=== PATIENT | female | born 1940 | race Hispanic/Latino ===

== ENCOUNTER → 2017-12-27 | Outpatient (CLI) | payer MEDICARE | LOC: MAMMO 09:23 | PROVIDERS: ATTEND Internal Medicine | DX: Z12.31 Encounter for screening mammogram for malignant neoplasm of breast (principal) | CPT/HCPCS: 77067 ==

== ENCOUNTER → 2018-07-09 | Outpatient (CLI) | payer MEDICARE ==
--- NOTE | 2018-07-09 14:59 | Diagnostic Imaging Report ---
FLUOROSCOPIC BARIUM SWALLOW HISTORY: Dysphagia [employer]: Bev Mark MD Comparison: None. Procedure: Double contrast barium swallow was performed using thick and thin oral barium and effervescent crystals. Radiation Exposure: Fluoroscopy Time: 1.5 minute Radiation dose: 19.5 mGy DISCUSSION: ESOPHAGUS: Motility: Primarily primary and secondary contractions. Scattered tertiary contractions. Mucosa: Unremarkable. Distensibility: Normal. GASTROESOPHAGEAL JUNCTION: Small hiatal hernia. GASTROESOPHAGEAL REFLUX: Severe spontaneous gastroesophageal reflux. STOMACH: Normally distensible and demonstrates normal contours and mucosal pattern. DUODENUM/PROXIMAL SMALL BOWEL: Unremarkable. IMPRESSION: Severe spontaneous gastroesophageal reflux. Small hiatal hernia. Signed by: Dr. Bev Mark MD on 07/09/2018 2:56 PM
== END ==
LOC: DX 09:49
PROVIDERS: ATTEND Internal Medicine
DX: R13.14 Dysphagia, pharyngoesophageal phase (principal)
CPT/HCPCS: 74220

== ENCOUNTER → 2019-01-26 | Outpatient (CLI) | payer MEDICARE ==
--- NOTE | 2019-01-26 15:21 | Diagnostic Imaging Report ---
Exam: CT chest Clinical history: Cough, nausea Technique: Helical images of the chest were obtained without contrast DOSE REDUCTION: The exams was performed according to the departmental dose-optimization program which includes automated exposure control, adjustment of the mA and/or kV according to patient size and/or use of iterative reconstruction technique. Findings: There is no evidence of pulmonary consolidation, nodule, edema, pleural effusion, interstitial disease, or pneumothorax. The tracheobronchial tree is clear. The cardiac size is within normal limits. The great vessels are normal in caliber and configuration. There is no evidence of mediastinal or hilar adenopathy. The visualized upper abdominal solid organs are unremarkable. Impression: 1. Unremarkable noncontrast CT of chest. Signed by: Dr. Arash Barnett MD on 01/26/2019 3:18 PM
--- NOTE | 2019-02-03 09:29 | Diagnostic Imaging Report ---
#[id number] - MGSCRBIL #BILATERAL DIGITAL SCREENING MAMMOGRAM WITH CAD: 01/26/2019 CLINICAL: Routine screening. Comparison is made to exams dated: 12/27/2017 mammogram and 11/05/2016 mammogram - [facility]. Current study contains 4 films. The tissue of both breasts is heterogeneously dense. This may lower the sensitivity of mammography. Current study was also evaluated with a Computer Aided Detection (CAD) system. Stable benign appearing calcifications are noted bilaterally. There are also benign vascular calcifications in both breasts. No significant masses, calcifications, or other findings are seen in either breast. IMPRESSION: BENIGN There is no mammographic evidence of malignancy. A 1 year screening mammogram is recommended. The patient will be notified by letter of the results. CHAYITO shaffer/penrad:01/30/2019 12:42:52 Rotary Drum Tanner: Veda JONES(Kaycee)(Darren), [facility] letter sent: Normal Exam Mammogram BI-RADS: 2 Benign
== END ==
LOC: MAMMO 13:33
PROVIDERS: ATTEND Internal Medicine
DX: Z12.31 Encounter for screening mammogram for malignant neoplasm of breast (principal); R05 Cough
CPT/HCPCS: 71250; 77067

== ENCOUNTER → 2019-07-29 | Outpatient (CLI) | payer MEDICARE ==
--- NOTE | 2019-07-29 13:16 | Diagnostic Imaging Report ---
Exam: Bone mineral density study. History: Osteoporosis Comparison: None Discussion: Evaluation of the left hip and lumbar spine was performed utilizing DEXA Hologic bone densitometer. The study is technically adequate. The patient's fracture risk is compared to an age-matched control. The patient denies prior surgery/fracture of the spine, hips or forearm. Left hip femoral neck bone mineral density: 0.728 g/cm2, T-score is -1.2, Z-score is 1.0. Left hip total bone mineral density: 0.777 g/cm2, T-score is -1.4, Z-score is 0.6. Lumbar spine total bone mineral density: 0.822 gm/cm2, T-score is -2.0, Z-score is 0.6. Impression: 1. Bone mineralization by WHO Classification of the left hip is osteopenia, the fracture risk is moderate. 2. Bone mineralization by WHO Classification of the lumbar spine is osteopenia, the fracture risk is moderate. Recommendations: Medical evaluation for secondary causes of low bone mineral density may be appropriate. Correlate clinically for the necessity and timing of the next bone mineral density study. Signed by: Dr. Yomi Calderon MD on 07/29/2019 1:13 PM
--- NOTE | 2019-07-29 14:03 | Diagnostic Imaging Report ---
MRI of the right shoulder without contrast. History: Shoulder pain. Injury. Decreased range of motion. Comparison: None Technique: Coronal PD FS, sagital PD FS, and axial PD and PD FS. Findings: Rotator cuff: Rotator cuff tendinosis with full-thickness tear involving the anterior fibers of the supraspinatus tendon at the humeral insertion site. Minimal retraction of the torn fibers and mild supraspinatus muscle atrophy. Additionally, there is subscapularis and infraspinatus tendinosis. The teres minor tendon is intact. Osseous acromion complex: Type II acromion with mild lateral downsloping. Mild degenerative arthrosis at the acromioclavicular joint with undersurface spurring and narrowing of the supraspinatus tendon outlet. Mild subacromial/subdeltoid bursitis. Glenohumeral joint: Degenerative type tearing of the labrum with small posterior superior labral cyst. The articular cartilage surfaces are slightly thin. The humeral head is well-seated in the glenoid fossa. Small effusion and mild synovitis in the rotator interval and subcoracoid space. Biceps tendon: The long head of the biceps tendon is torn and retracted proximally along the shaft of the humerus. Other findings: Negative for muscle denervation or osseous fracture. Impression: Rotator cuff tendinosis with full-thickness tear involving the anterior fibers of the supraspinatus tendon at the humeral insertion site. Minimal retraction of the torn fibers and mild supraspinatus muscle atrophy. The long head of the biceps tendon is torn and retracted proximally along the shaft of the humerus. Mild degenerative arthrosis at the acromioclavicular joint with undersurface spurring and narrowing of the supraspinatus tendon outlet. Mild subacromial/subdeltoid bursitis Signed by: Dr. Marko Leon M.D. on 07/29/2019 2:00 PM
== END ==
LOC: MRI 10:24
PROVIDERS: ATTEND Internal Medicine
DX: S46.001S Unspecified injury of muscle(s) and tendon(s) of the rotator cuff of right shoulder, sequela (principal); M81.0 Age-related osteoporosis without current pathological fracture
CPT/HCPCS: 77080

== ENCOUNTER 2019-10-29 12:50 | Emergency (ER) | payer MEDICARE ==
[~2019-10-29] VITALS: Ht 149.9 cm; Wt 48.5 kg
--- OUTSIDE RECORDS SUMMARY | 2019-10-29 12:54 | XMS REPORT ---
Author Author [facility] t Organization [facility] Address [address] [place] [id number] Phone Unavailable Care Team Providers Care Clinical Trials Assistant Name Role Phone CARABALLO, Darren GENAO Attphys Unavailable Payers Payer Name Policy Type Policy Number Effective Date Expiration Date S ource Problems This patient has no known problems. Allergies, Adverse Reactions, Alerts Allergy Name Allergy Type Status Severity Reaction(s) Onset Date Inacti ve Date Treating Clinician Comments Source No Known Allergies DA Active U 2019-08-13 00:00:00 [facility] No Known Allergies DA Active U 2015-03-08 00:00:00 [facility] Medications This patient has no known medications. Procedures This patient has no known procedures. Results Test Description Test Time Test Comments Results Result Comments Source GLUBED 2019-09-05 13:05:00 Test Item GLUBED (test code = GLUBED) 275 mg/dL 74-106 H Performed by certified glove machine operator at [facility] [id number] 09:00:00* Test Item Value Reference Range Interpretation Comments GLUBED (test code = GLUBED) 109 mg/dL 74-106 H Performed by certified glove machine operator at [facility] [id number] 20:22:00* Test Item Value Reference Range Interpretation Comments GLUBED (test code = GLUBED) 318 mg/dL 74-106 H Performed by certified glove machine operator at [facility] [id number] 16:51:00* Test Item Value Reference Range Interpretation Comments GLUBED (test code = GLUBED) 129 mg/dL 74-106 H Performed by certified glove machine operator at [facility] [id number] 12:13:00* Test Item Value Reference Range Interpretation Comments GLUBED (test code = GLUBED) 258 mg/dL 74-106 H Performed by certified glove machine operator at [facility] [id number] 12:13:00* Test Item Value Reference Range Interpretation Comments GLUBED (test code = GLUBED) 96 mg/dL 74-106 N Performed by certified glove machine operator at [facility] [id number] 20:37:00* Test Item Value Reference Range Interpretation Comments GLUBED (test code = GLUBED) 164 mg/dL 74-106 H Performed by certified glove machine operator at [facility] [id number] 15:54:00* Test Item Value Reference Range Interpretation Comments GLUBED (test code = GLUBED) 260 mg/dL 74-106 H Performed by certified glove machine operator at [facility] [id number] 11:17:00* Test Item Value Reference Range Interpretation Comments GLUBED (test code = GLUBED) 183 mg/dL 74-106 H Performed by certified glove machine operator at [facility] [id number] 07:56:00* Test Item Value Reference Range Interpretation Comments GLUBED (test code = GLUBED) 183 mg/dL 74-106 H Performed by certified glove machine operator at [facility] BASIC METABOLIC [id number] 04:36:00* Test Item Value Reference Range Interpretation Comments SODIUM (test code = NA) 132 mmol/L 136-145 L POTASSIUM (test code = K) 4.1 mmol/L 3.5-5.1 N CHLORIDE (test code = CL) 100.0 mmol/L 98-107 N CARBON DIOXIDE (test code = CO2) 22.0 mmol/L 21-32 N ANION GAP (test code = GAP) 14.1 10-20 N GLUCOSE (test code = GLU) 162 mg/dL 74-106 H BLOOD UREA NITROGEN (test code = BUN) 21 mg/dL 7-18 H GLOMERULAR FILTRATION RATE (test code = GFR) > 60 mL/min >=60 Estimated GFR by using Modified MDRD formula.Chronic kidney disease is defined as either kidney damageor GFR <60 mL/min/1.73 m2 for >3 months. CREATININE (test code = CREAT) 0.60 mg/dL 0.55-1.02 N Note change in reference range due to change in reagent. BUN/CREATININE RATIO (test code = BUN/CREA) 35.0 10-20 H CALCIUM (test code = CA) 8.7 mg/dL 8.5-10.1 N BASIC METABOLIC [id number] 04:30:00* Test Item Value Reference Range Interpretation Comments SODIUM (test code = NA) 132 mmol/L 136-145 L POTASSIUM (test code = K) 4.1 mmol/L 3.5-5.1 N CHLORIDE (test code = CL) 100.0 mmol/L 98-107 N CARBON DIOXIDE (test code = CO2) mmol/L 21-32 ANION GAP (test code = GAP) 10-20 GLUCOSE (test code = GLU) mg/dL 74-106 BLOOD UREA NITROGEN (test code = BUN) mg/dL 7-18 GLOMERULAR FILTRATION RATE (test code = GFR) mL/min >=60 CREATININE (test code = CREAT) mg/dL 0.55-1.02 BUN/CREATININE RATIO (test code = BUN/CREA) 10-20 CALCIUM (test code = CA) mg/dL 8.5-10.1 [id number] 20:08:00* Test Item Value Reference Range Interpretation Comments GLUBED (test code = GLUBED) 183 mg/dL 74-106 H Performed by certified glove machine operator at [facility] [id number] 17:22:00* Test Item Value Reference Range Interpretation Comments GLUBED (test code = GLUBED) 261 mg/dL 74-106 H Performed by certified glove machine operator at [facility] [id number] 11:39:00* Test Item Value Reference Range Interpretation Comments GLUBED (test code = GLUBED) 284 mg/dL 74-106 H Performed by certified glove machine operator at [facility] [id number] 07:43:00* Test Item Value Reference Range Interpretation Comments GLUBED (test code = GLUBED) 142 mg/dL 74-106 H Performed by certified glove machine operator at [facility] BASIC METABOLIC [id number] 05:03:00* Test Item Value Reference Range Interpretation Comments SODIUM (test code = NA) 133 mmol/L 136-145 L POTASSIUM (test code = K) 3.8 mmol/L 3.5-5.1 N CHLORIDE (test code = CL) 101.0 mmol/L 98-107 N CARBON DIOXIDE (test code = CO2) mmol/L 21-32 ANION GAP (test code = GAP) 10-20 GLUCOSE (test code = GLU) mg/dL 74-106 BLOOD UREA NITROGEN (test code = BUN) mg/dL 7-18 GLOMERULAR FILTRATION RATE (test code = GFR) mL/min >=60 CREATININE (test code = CREAT) mg/dL 0.55-1.02 BUN/CREATININE RATIO (test code = BUN/CREA) 10-20 CALCIUM (test code = CA) mg/dL 8.5-10.1 [id number] 05:03:00* Test Item Value Reference Range Interpretation Comments MAGNESIUM (test code = MAG) mg/dL 1.8-2.4 BASIC METABOLIC [id number] 05:03:00* Test Item Value Reference Range Interpretation Comments SODIUM (test code = NA) 133 mmol/L 136-145 L POTASSIUM (test code = K) 3.8 mmol/L 3.5-5.1 N CHLORIDE (test code = CL) 101.0 mmol/L 98-107 N CARBON DIOXIDE (test code = CO2) 23.0 mmol/L 21-32 N ANION GAP (test code = GAP) 12.8 10-20 N GLUCOSE (test code = GLU) 117 mg/dL 74-106 H BLOOD UREA NITROGEN (test code = BUN) 11 mg/dL 7-18 N GLOMERULAR FILTRATION RATE (test code = GFR) > 60 mL/min >=60 Estimated GFR by using Modified MDRD formula.Chronic kidney disease is defined as either kidney damageor GFR <60 mL/min/1.73 m2 for >3 months. CREATININE (test code = CREAT) 0.40 mg/dL 0.55-1.02 L Note change in reference range due to change in reagent. BUN/CREATININE RATIO (test code = BUN/CREA) 27.5 10-20 H CALCIUM (test code = CA) 8.9 mg/dL 8.5-10.1 N [id number] 05:03:00* Test Item Value Reference Range Interpretation Comments MAGNESIUM (test code = MAG) 2.1 mg/dL 1.8-2.4 N CBC W/AUTO [id number] 04:38:00* Test Item Value Reference Range Interpretation Comments WHITE BLOOD CELL (test code = WBC) 6.3 K/mm3 4.5-12.5 N RED BLOOD CELL (test code = RBC) 3.71 mill/mm3 3.7-5.2 N HEMOGLOBIN (test code = HGB) 10.8 gram/dL 11.5-15.5 L HEMATOCRIT (test code = HCT) 32.1 % 36.0-46.0 L MEAN CELL VOLUME (test code = MCV) 86.5 fL 80-98 N MEAN CELL HGB (test code = MCH) 29.1 picogram 27.0-33.0 N MEAN CELL HGB CONCETRATION (test code = MCHC) 33.6 gram/dL 33.0-36. 0 N RED CELL DISTRIBUTION WIDTH (test code = RDW) 13.5 % 11.6-16. 2 N RED CELL DISTRIBUTION WIDTH SD (test code = RDW-SD) 41.6 fL 37 .0-51.0 N PLATELET COUNT (test code = PLT) 406 K/mm3 150-450 N MEAN PLATELET VOLUME (test code = MPV) 8.8 fL 6.7-11.0 N NEUTROPHIL % (test code = NT%) 77.4 % 39.0-69.0 H IMMATURE GRANULOCYTE % (test code = IG%) 1.3 % 0.0-5.0 N LYMPHOCYTE % (test code = LY%) 11.8 % 25.0-55.0 L MONOCYTE % (test code = MO%) 5.9 % 0.0-10.0 N EOSINOPHIL % (test code = EO%) 3.0 % 0.0-5.0 N BASOPHIL % (test code = BA%) 0.6 % 0.0-1.0 N NUCLEATED RBC % (test code = NRBC%) 0.0 % 0-0 N NEUTROPHIL # (test code = NT#) 4.84 K/mm3 1.8-7.7 N IMMATURE GRANULOCYTE # (test code = IG#) 0.08 x10 3/uL 0-0.03 H LYMPHOCYTE # (test code = LY#) 0.74 K/mm3 1.0-5.0 L MONOCYTE # (test code = MO#) 0.37 K/mm3 0-0.8 N EOSINOPHIL # (test code = EO#) 0.19 K/mm3 0.0-0.5 N BASOPHIL # (test code = BA#) 0.04 K/mm3 0.0-0.2 N NUCLEATED RBC # (test code = NRBC#) 0.00 K/mm3 0.0-0.1 N [id number] 20:12:00* Test Item Value Reference Range Interpretation Comments GLUBED (test code = GLUBED) 218 mg/dL 74-106 H Performed by certified glove machine operator at [facility] [id number] 18:00:00* Test Item Value Reference Range Interpretation Comments GLUBED (test code = GLUBED) 260 mg/dL 74-106 H Performed by certified glove machine operator at [facility] [id number] 18:00:00* Test Item Value Reference Range Interpretation Comments GLUBED (test code = GLUBED) 246 mg/dL 74-106 H Performed by certified glove machine operator at [facility] [id number] 11:51:00* Test Item Value Reference Range Interpretation Comments GLUBED (test code = GLUBED) 143 mg/dL 74-106 H Performed by certified glove machine operator at [facility] [id number] 07:57:00* Test Item Value Reference Range Interpretation Comments GLUBED (test code = GLUBED) 143 mg/dL 74-106 H Performed by certified glove machine operator at [facility] BASIC METABOLIC [id number] 05:49:00* Test Item Value Reference Range Interpretation Comments SODIUM (test code = NA) 136 mmol/L 136-145 N POTASSIUM (test code = K) 3.9 mmol/L 3.5-5.1 N CHLORIDE (test code = CL) 103.0 mmol/L 98-107 N CARBON DIOXIDE (test code = CO2) 25.0 mmol/L 21-32 N ANION GAP (test code = GAP) 11.9 10-20 N GLUCOSE (test code = GLU) 155 mg/dL 74-106 H BLOOD UREA NITROGEN (test code = BUN) 8 mg/dL 7-18 N GLOMERULAR FILTRATION RATE (test code = GFR) > 60 mL/min >=60 Estimated GFR by using Modified MDRD formula.Chronic kidney disease is defined as either kidney damageor GFR <60 mL/min/1.73 m2 for >3 months. CREATININE (test code = CREAT) 0.40 mg/dL 0.55-1.02 L Note change in reference range due to change in reagent. BUN/CREATININE RATIO (test code = BUN/CREA) 20.0 10-20 N CALCIUM (test code = CA) 9.0 mg/dL 8.5-10.1 N BASIC METABOLIC [id number] 05:39:00* Test Item Value Reference Range Interpretation Comments SODIUM (test code = NA) 136 mmol/L 136-145 N POTASSIUM (test code = K) 3.9 mmol/L 3.5-5.1 N CHLORIDE (test code = CL) 103.0 mmol/L 98-107 N CARBON DIOXIDE (test code = CO2) mmol/L 21-32 ANION GAP (test code = GAP) 10-20 GLUCOSE (test code = GLU) mg/dL 74-106 BLOOD UREA NITROGEN (test code = BUN) mg/dL 7-18 GLOMERULAR FILTRATION RATE (test code = GFR) mL/min >=60 CREATININE (test code = CREAT) mg/dL 0.55-1.02 BUN/CREATININE RATIO (test code = BUN/CREA) 10-20 CALCIUM (test code = CA) mg/dL 8.5-10.1 CBC W/AUTO [id number] 05:24:00* Test Item Value Reference Range Interpretation Comments WHITE BLOOD CELL (test code = WBC) 5.9 K/mm3 4.5-12.5 N RED BLOOD CELL (test code = RBC) 3.72 mill/mm3 3.7-5.2 N HEMOGLOBIN (test code = HGB) 11.0 gram/dL 11.5-15.5 L HEMATOCRIT (test code = HCT) 32.8 % 36.0-46.0 L MEAN CELL VOLUME (test code = MCV) 88.2 fL 80-98 N MEAN CELL HGB (test code = MCH) 29.6 picogram 27.0-33.0 N MEAN CELL HGB CONCETRATION (test code = MCHC) 33.5 gram/dL 33.0-36. 0 N RED CELL DISTRIBUTION WIDTH (test code = RDW) 13.6 % 11.6-16. 2 N RED CELL DISTRIBUTION WIDTH SD (test code = RDW-SD) 43.3 fL 37 .0-51.0 N PLATELET COUNT (test code = PLT) 413 K/mm3 150-450 N MEAN PLATELET VOLUME (test code = MPV) 9.0 fL 6.7-11.0 N NEUTROPHIL % (test code = NT%) 71.2 % 39.0-69.0 H IMMATURE GRANULOCYTE % (test code = IG%) 1.0 % 0.0-5.0 N LYMPHOCYTE % (test code = LY%) 16.7 % 25.0-55.0 L MONOCYTE % (test code = MO%) 6.9 % 0.0-10.0 N EOSINOPHIL % (test code = EO%) 3.5 % 0.0-5.0 N BASOPHIL % (test code = BA%) 0.7 % 0.0-1.0 N NUCLEATED RBC % (test code = NRBC%) 0.0 % 0-0 N NEUTROPHIL # (test code = NT#) 4.22 K/mm3 1.8-7.7 N IMMATURE GRANULOCYTE # (test code = IG#) 0.06 x10 3/uL 0-0.03 H LYMPHOCYTE # (test code = LY#) 0.99 K/mm3 1.0-5.0 L MONOCYTE # (test code = MO#) 0.41 K/mm3 0-0.8 N EOSINOPHIL # (test code = EO#) 0.21 K/mm3 0.0-0.5 N BASOPHIL # (test code = BA#) 0.04 K/mm3 0.0-0.2 N NUCLEATED RBC # (test code = NRBC#) 0.00 K/mm3 0.0-0.1 N MANUAL DIFF REQUIRED (test code = MDIFF) NO [id number] 19:41:00* Test Item Value Reference Range Interpretation Comments GLUBED (test code = GLUBED) 221 mg/dL 74-106 H Performed by certified glove machine operator at [facility] [id number] 16:49:00* Test Item Value Reference Range Interpretation Comments GLUBED (test code = GLUBED) 212 mg/dL 74-106 H Performed by certified glove machine operator at [facility] - XR CHEST 1 [id number] 12:15:00 FAX: Linda Lindquist [place]: [address] St: ADM FAX: Chavez Nickerson MD [phone] Name: TARA RO [facility] : 1940 Age/S: 79/F [address] [facility] Unit #: [id number] Loc: [address] [place] [address] Phys: Chavez Mason MD Acct: [id number] Dis Date: Status: ADM IN PHONE #: [phone] Exam Date: 08/31/2019 1201 FAX #: [phone] Reason: f/u pneumonia EXAMS: CPT CODE: [id number] XR CHEST 1 V 11421 HISTORY: Follow-up pneumonia. COMPARISON: Chest x-ray from August 23, 2019. Location: [facility]. Complete resolution of the right upper lobe infiltrate. Dependent changes. No effusion or congestion. Cardiomegaly. IMPRESSION: Complete resolution of the right upper lobe infiltrate. at 121 Reported and signed by: Anand Cazares M.D. CC: Linda Lindquist MD; Chavez Mason MD Technologist: Jenny Rao(Kaycee) Trnscrd Date/Time/By: 08/31/2019 (0770) : By: [email or web address] Orig Print D/T: S: 08/31/2019 (5664) PAGE 1 Signed Report - XR CHEST 1 V 2019-08-31 12:15:00 FAX: Linda Lindquist [place]: [address] St: ADM FAX: Chavez Nickerson MD [phone] Name: TARA RO [facility] : 1940 Age/S: 79/F [address] Unit #: [id number] Loc: V.[address] [place] [address] Phys: Chavez Mason MD Acct: [id number] Dis Date: Status: ADM IN PHONE #: [phone] Exam Date: 08/31/2019 1201 FAX #: [phone] Reason: f/u pneumonia EXAMS: CPT CODE: [id number] XR CHEST 1 V 21916 HISTORY: Follow-up pneumonia. COMPARISON: Chest x-ray from August 23, 2019. Location: [facility]. Complete resolution of the right upper lobe infiltrate. Dependent changes. No effusion or congestion. Cardiomegaly. IMPRESSION: Complete resolution of the right upper lobe infiltrate. at 1215 Reported and signed by: Anand Cazares M.D. CC: Linda Lindquist MD; Chavez Mason MD Technologist: Jenny Rao(Kaycee) Trnscrd Date/Time/By: 08/31/2019 (7935) : By: [email or web address] Orig Print D/T: S: 08/31/2019 (8903) PAGE 1 Signed Report [id number] 11:34:00* Test Item Value Reference Range Interpretation Comments GLUBED (test code = GLUBED) 248 mg/dL 74-106 H Performed by certified glove machine operator at [facility] [id number] 07:24:00* Test Item Value Reference Range Interpretation Comments GLUBED (test code = GLUBED) 226 mg/dL 74-106 H Performed by certified glove machine operator at [facility] BASIC METABOLIC [id number] 04:30:00* Test Item Value Reference Range Interpretation Comments SODIUM (test code = NA) 135 mmol/L 136-145 L POTASSIUM (test code = K) 3.9 mmol/L 3.5-5.1 N CHLORIDE (test code = CL) 104.0 mmol/L 98-107 N CARBON DIOXIDE (test code = CO2) 23.0 mmol/L 21-32 N ANION GAP (test code = GAP) 11.9 10-20 N GLUCOSE (test code = GLU) 261 mg/dL 74-106 H BLOOD UREA NITROGEN (test code = BUN) 9 mg/dL 7-18 N GLOMERULAR FILTRATION RATE (test code = GFR) > 60 mL/min >=60 Estimated GFR by using Modified MDRD formula.Chronic kidney disease is defined as either kidney damageor GFR <60 mL/min/1.73 m2 for >3 months. CREATININE (test code = CREAT) 0.60 mg/dL 0.55-1.02 N Note change in reference range due to change in reagent. BUN/CREATININE RATIO (test code = BUN/CREA) 15.0 10-20 N CALCIUM (test code = CA) 8.4 mg/dL 8.5-10.1 L BASIC METABOLIC [id number] 04:25:00* Test Item Value Reference Range Interpretation Comments SODIUM (test code = NA) 135 mmol/L 136-145 L POTASSIUM (test code = K) 3.9 mmol/L 3.5-5.1 N CHLORIDE (test code = CL) 104.0 mmol/L 98-107 N CARBON DIOXIDE (test code = CO2) mmol/L 21-32 ANION GAP (test code = GAP) 10-20 GLUCOSE (test code = GLU) mg/dL 74-106 BLOOD UREA NITROGEN (test code = BUN) mg/dL 7-18 GLOMERULAR FILTRATION RATE (test code = GFR) mL/min >=60 CREATININE (test code = CREAT) mg/dL 0.55-1.02 BUN/CREATININE RATIO (test code = BUN/CREA) 10-20 CALCIUM (test code = CA) mg/dL 8.5-10.1 CBC W/AUTO [id number] 04:22:00* Test Item Value Reference Range Interpretation Comments WHITE BLOOD CELL (test code = WBC) 8.5 K/mm3 4.5-12.5 N RED BLOOD CELL (test code = RBC) 3.39 mill/mm3 3.7-5.2 L HEMOGLOBIN (test code = HGB) 10.0 gram/dL 11.5-15.5 L HEMATOCRIT (test code = HCT) 29.8 % 36.0-46.0 L MEAN CELL VOLUME (test code = MCV) 87.9 fL 80-98 N MEAN CELL HGB (test code = MCH) 29.5 picogram 27.0-33.0 N MEAN CELL HGB CONCETRATION (test code = MCHC) 33.6 gram/dL 33.0-36. 0 N RED CELL DISTRIBUTION WIDTH (test code = RDW) 13.6 % 11.6-16. 2 N RED CELL DISTRIBUTION WIDTH SD (test code = RDW-SD) 42.8 fL 37 .0-51.0 N PLATELET COUNT (test code = PLT) 370 K/mm3 150-450 N MEAN PLATELET VOLUME (test code = MPV) 9.2 fL 6.7-11.0 N NEUTROPHIL % (test code = NT%) 83.0 % 39.0-69.0 H IMMATURE GRANULOCYTE % (test code = IG%) 0.8 % 0.0-5.0 N LYMPHOCYTE % (test code = LY%) 8.3 % 25.0-55.0 L MONOCYTE % (test code = MO%) 6.2 % 0.0-10.0 N EOSINOPHIL % (test code = EO%) 1.5 % 0.0-5.0 N BASOPHIL % (test code = BA%) 0.2 % 0.0-1.0 N NUCLEATED RBC % (test code = NRBC%) 0.0 % 0-0 N NEUTROPHIL # (test code = NT#) 7.08 K/mm3 1.8-7.7 N IMMATURE GRANULOCYTE # (test code = IG#) 0.07 x10 3/uL 0-0.03 H LYMPHOCYTE # (test code = LY#) 0.71 K/mm3 1.0-5.0 L MONOCYTE # (test code = MO#) 0.53 K/mm3 0-0.8 N EOSINOPHIL # (test code = EO#) 0.13 K/mm3 0.0-0.5 N BASOPHIL # (test code = BA#) 0.02 K/mm3 0.0-0.2 N NUCLEATED RBC # (test code = NRBC#) 0.00 K/mm3 0.0-0.1 N [id number] 20:15:00* Test Item Value Reference Range Interpretation Comments GLUBED (test code = GLUBED) 122 mg/dL 74-106 H Performed by certified glove machine operator at [facility] [id number] 18:16:00* Test Item Value Reference Range Interpretation Comments GLUBED (test code = GLUBED) 268 mg/dL 74-106 H Performed by certified glove machine operator at [facility] [id number] 12:11:00* Test Item Value Reference Range Interpretation Comments GLUBED (test code = GLUBED) 279 mg/dL 74-106 H Performed by certified glove machine operator at [facility] [id number] 08:32:00* Test Item Value Reference Range Interpretation Comments GLUBED (test code = GLUBED) 141 mg/dL 74-106 H Performed by certified glove machine operator at [facility] BASIC METABOLIC [id number] 04:44:00* Test Item Value Reference Range Interpretation Comments SODIUM (test code = NA) 136 mmol/L 136-145 N POTASSIUM (test code = K) 4.3 mmol/L 3.5-5.1 N CHLORIDE (test code = CL) 104.0 mmol/L 98-107 N CARBON DIOXIDE (test code = CO2) 20.0 mmol/L 21-32 L ANION GAP (test code = GAP) 16.3 10-20 N GLUCOSE (test code = GLU) 118 mg/dL 74-106 H BLOOD UREA NITROGEN (test code = BUN) 8 mg/dL 7-18 N GLOMERULAR FILTRATION RATE (test code = GFR) > 60 mL/min >=60 Estimated GFR by using Modified MDRD formula.Chronic kidney disease is defined as either kidney damageor GFR <60 mL/min/1.73 m2 for >3 months. CREATININE (test code = CREAT) 0.40 mg/dL 0.55-1.02 L Note change in reference range due to change in reagent. BUN/CREATININE RATIO (test code = BUN/CREA) 20.0 10-20 N CALCIUM (test code = CA) 8.0 mg/dL 8.5-10.1 L BASIC METABOLIC [id number] 04:39:00* Test Item Value Reference Range Interpretation Comments SODIUM (test code = NA) 136 mmol/L 136-145 N POTASSIUM (test code = K) 4.3 mmol/L 3.5-5.1 N CHLORIDE (test code = CL) 104.0 mmol/L 98-107 N CARBON DIOXIDE (test code = CO2) mmol/L 21-32 ANION GAP (test code = GAP) 10-20 GLUCOSE (test code = GLU) mg/dL 74-106 BLOOD UREA NITROGEN (test code = BUN) mg/dL 7-18 GLOMERULAR FILTRATION RATE (test code = GFR) mL/min >=60 CREATININE (test code = CREAT) mg/dL 0.55-1.02 BUN/CREATININE RATIO (test code = BUN/CREA) 10-20 CALCIUM (test code = CA) mg/dL 8.5-10.1 CBC W/AUTO [id number] 03:58:00* Test Item Value Reference Range Interpretation Comments WHITE BLOOD CELL (test code = WBC) 10.3 K/mm3 4.5-12.5 N RED BLOOD CELL (test code = RBC) 3.11 mill/mm3 3.7-5.2 L HEMOGLOBIN (test code = HGB) 9.4 gram/dL 11.5-15.5 L HEMATOCRIT (test code = HCT) 29.1 % 36.0-46.0 L MEAN CELL VOLUME (test code = MCV) 93.6 fL 80-98 N MEAN CELL HGB (test code = MCH) 30.2 picogram 27.0-33.0 N MEAN CELL HGB CONCETRATION (test code = MCHC) 32.3 gram/dL 33.0-36. 0 L RED CELL DISTRIBUTION WIDTH (test code = RDW) 13.6 % 11.6-16. 2 N RED CELL DISTRIBUTION WIDTH SD (test code = RDW-SD) 45.3 fL 37 .0-51.0 N PLATELET COUNT (test code = PLT) 329 K/mm3 150-450 MEAN PLATELET VOLUME (test code = MPV) 9.0 fL 6.7-11.0 N NEUTROPHIL % (test code = NT%) 82.3 % 39.0-69.0 H IMMATURE GRANULOCYTE % (test code = IG%) 0.7 % 0.0-5.0 N LYMPHOCYTE % (test code = LY%) 8.4 % 25.0-55.0 L MONOCYTE % (test code = MO%) 6.7 % 0.0-10.0 N EOSINOPHIL % (test code = EO%) 1.5 % 0.0-5.0 N BASOPHIL % (test code = BA%) 0.4 % 0.0-1.0 N NUCLEATED RBC % (test code = NRBC%) 0.0 % 0-0 N NEUTROPHIL # (test code = NT#) 8.49 K/mm3 1.8-7.7 H IMMATURE GRANULOCYTE # (test code = IG#) 0.07 x10 3/uL 0-0.03 H LYMPHOCYTE # (test code = LY#) 0.87 K/mm3 1.0-5.0 L MONOCYTE # (test code = MO#) 0.69 K/mm3 0-0.8 N EOSINOPHIL # (test code = EO#) 0.15 K/mm3 0.0-0.5 N BASOPHIL # (test code = BA#) 0.04 K/mm3 0.0-0.2 N NUCLEATED RBC # (test code = NRBC#) 0.00 K/mm3 0.0-0.1 N MANUAL DIFF REQUIRED (test code = MDIFF) NO [id number] 20:13:00* Test Item Value Reference Range Interpretation Comments GLUBED (test code = GLUBED) 283 mg/dL 74-106 H Performed by certified glove machine operator at [facility] [id number] 16:47:00* Test Item Value Reference Range Interpretation Comments GLUBED (test code = GLUBED) 135 mg/dL 74-106 H Performed by certified glove machine operator at [facility] [id number] 12:33:00* Test Item Value Reference Range Interpretation Comments GLUBED (test code = GLUBED) 343 mg/dL 74-106 H [facility] [id number] 08:44:00* Test Item Value Reference Range Interpretation Comments GLUBED (test code = GLUBED) 98 mg/dL 74-106 N Performed by certified glove machine operator at [facility] BASIC METABOLIC [id number] 04:25:00* Test Item Value Reference Range Interpretation Comments SODIUM (test code = NA) 135 mmol/L 136-145 L POTASSIUM (test code = K) 4.2 mmol/L 3.5-5.1 N CHLORIDE (test code = CL) 102.0 mmol/L 98-107 N CARBON DIOXIDE (test code = CO2) 24.0 mmol/L 21-32 N ANION GAP (test code = GAP) 13.2 10-20 N GLUCOSE (test code = GLU) 85 mg/dL 74-106 N BLOOD UREA NITROGEN (test code = BUN) 7 mg/dL 7-18 N GLOMERULAR FILTRATION RATE (test code = GFR) > 60 mL/min >=60 Estimated GFR by using Modified MDRD formula.Chronic kidney disease is defined as either kidney damageor GFR <60 mL/min/1.73 m2 for >3 months. CREATININE (test code = CREAT) 0.40 mg/dL 0.55-1.02 L Note change in reference range due to change in reagent. BUN/CREATININE RATIO (test code = BUN/CREA) 17.5 10-20 N CALCIUM (test code = CA) 8.3 mg/dL 8.5-10.1 L BASIC METABOLIC [id number] 04:20:00* Test Item Value Reference Range Interpretation Comments SODIUM (test code = NA) 135 mmol/L 136-145 L POTASSIUM (test code = K) 4.2 mmol/L 3.5-5.1 N CHLORIDE (test code = CL) 102.0 mmol/L 98-107 N CARBON DIOXIDE (test code = CO2) mmol/L 21-32 ANION GAP (test code = GAP) 10-20 GLUCOSE (test code = GLU) mg/dL 74-106 BLOOD UREA NITROGEN (test code = BUN) mg/dL 7-18 GLOMERULAR FILTRATION RATE (test code = GFR) mL/min >=60 CREATININE (test code = CREAT) mg/dL 0.55-1.02 BUN/CREATININE RATIO (test code = BUN/CREA) 10-20 CALCIUM (test code = CA) mg/dL 8.5-10.1 CBC W/AUTO [id number] 04:01:00* Test Item Value Reference Range Interpretation Comments WHITE BLOOD CELL (test code = WBC) 12.9 K/mm3 4.5-12.5 H RED BLOOD CELL (test code = RBC) 3.52 mill/mm3 3.7-5.2 L HEMOGLOBIN (test code = HGB) 10.4 gram/dL 11.5-15.5 L HEMATOCRIT (test code = HCT) 31.3 % 36.0-46.0 L MEAN CELL VOLUME (test code = MCV) 88.9 fL 80-98 N MEAN CELL HGB (test code = MCH) 29.5 picogram 27.0-33.0 N MEAN CELL HGB CONCETRATION (test code = MCHC) 33.2 gram/dL 33.0-36. 0 N RED CELL DISTRIBUTION WIDTH (test code = RDW) 14.0 % 11.6-16. 2 N RED CELL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 [id number] 11:26:00* Test Item Value Reference Range Interpretation Comments SODIUM (test code = NA) 133 mmol/L 136-145 L POTASSIUM (test code = K) 3.9 mmol/L 3.5-5.1 N CHLORIDE (test code = CL) 96.0 mmol/L 98-107 L CARBON DIOXIDE (test code = CO2) mmol/L 21-32 ANION GAP (test code = GAP) 10-20 GLUCOSE (test code = GLU) mg/dL 74-106 BLOOD UREA NITROGEN (test code = BUN) mg/dL 7-18 GLOMERULAR FILTRATION RATE (test code = GFR) mL/min >=60 CREATININE (test code = CREAT) mg/dL 0.55-1.02 BUN/CREATININE RATIO (test code = BUN/CREA) 10-20 CALCIUM (test code = CA) mg/dL 8.5-10.1 CBC W/AUTO [id number] 11:00:00* Test Item Value Reference Range Interpretation Comments WHITE BLOOD CELL (test code = WBC) 17.5 K/mm3 4.5-12.5 H RED BLOOD CELL (test code = RBC) 3.40 mill/mm3 3.7-5.2 L HEMOGLOBIN (test code = HGB) 10.4 gram/dL 11.5-15.5 L HEMATOCRIT (test code = HCT) 29.6 % 36.0-46.0 L MEAN CELL VOLUME (test code = MCV) 87.1 fL 80-98 N MEAN CELL HGB (test code = MCH) 30.6 picogram 27.0-33.0 N MEAN CELL HGB CONCETRATION (test code = MCHC) 35.1 gram/dL 33.0-36. 0 N RED CELL DISTRIBUTION WIDTH (test code = RDW) 13.1 % 11.6-16. 2 N RED CELL DISTRIBUTION WIDTH SD (test code = RDW-SD) 39.1 fL 37 .0-51.0 N PLATELET COUNT (test code = PLT) 297 K/mm3 150-450 N MEAN PLATELET VOLUME (test code = MPV) 10.0 fL 6.7-11.0 N NEUTROPHIL % (test code = NT%) 86.1 % 39.0-69.0 H IMMATURE GRANULOCYTE % (test code = IG%) 3.7 % 0.0-5.0 N LYMPHOCYTE % (test code = LY%) 3.7 % 25.0-55.0 L MONOCYTE % (test code = MO%) 6.0 % 0.0-10.0 N EOSINOPHIL % (test code = EO%) 0.3 % 0.0-5.0 N BASOPHIL % (test code = BA%) 0.2 % 0.0-1.0 N NUCLEATED RBC % (test code = NRBC%) 0.0 % 0-0 N NEUTROPHIL # (test code = NT#) 15.10 K/mm3 1.8-7.7 H IMMATURE GRANULOCYTE # (test code = IG#) 0.65 x10 3/uL 0-0.03 H LYMPHOCYTE # (test code = LY#) 0.64 K/mm3 1.0-5.0 L MONOCYTE # (test code = MO#) 1.05 K/mm3 0-0.8 H EOSINOPHIL # (test code = EO#) 0.06 K/mm3 0.0-0.5 N BASOPHIL # (test code = BA#) 0.03 K/mm3 0.0-0.2 N NUCLEATED RBC # (test code = NRBC#) 0.00 K/mm3 0.0-0.1 N MANUAL DIFF REQUIRED (test code = MDIFF) NO [id number] 07:57:00* Test Item Value Reference Range Interpretation Comments GLUBED (test code = GLUBED) 163 mg/dL 74-106 H Performed by certified glove machine operator at [facility] [id number] 07:57:00* Test Item Value Reference Range Interpretation Comments GLUBED (test code = GLUBED) 176 mg/dL 74-106 H Performed by certified glove machine operator at [facility] [id number] 23:40:00* Test Item Value Reference Range Interpretation Comments GLUBED (test code = GLUBED) 181 mg/dL 74-106 H Performed by certified glove machine operator at [facility] [id number] 16:45:00* Test Item Value Reference Range Interpretation Comments GLUBED (test code = GLUBED) 279 mg/dL 74-106 H Performed by certified glove machine operator at [facility] CBC W/MANUAL [id number] 12:03:00* Test Item Value Reference Range Interpretation Comments WHITE BLOOD CELL (test code = WBC) 15.3 K/mm3 4.5-12.5 H RED BLOOD CELL (test code = RBC) 3.48 mill/mm3 3.7-5.2 L HEMOGLOBIN (test code = HGB) 10.4 gram/dL 11.5-15.5 L HEMATOCRIT (test code = HCT) 30.0 % 36.0-46.0 L MEAN CELL VOLUME (test code = MCV) 86.2 fL 80-98 N MEAN CELL HGB (test code = MCH) 29.9 picogram 27.0-33.0 N MEAN CELL HGB CONCETRATION (test code = MCHC) 34.7 gram/dL 33.0-36. 0 N RED CELL DISTRIBUTION WIDTH (test code = RDW) 12.6 % 11.6-16. 2 N RED CELL DISTRIBUTION WIDTH SD (test code = RDW-SD) 38.1 fL 37 .0-51.0 N PLATELET COUNT (test code = PLT) 271 K/mm3 150-450 N MEAN PLATELET VOLUME (test code = MPV) 10.3 fL 6.7-11.0 N IMMATURE GRANULOCYTE % (test code = IG%) 5.1 % 0.0-5.0 H "The appearance of immature granulocytes (myelocytes,pro-myelocytes, meta-myelocytes) in the peripheral blood ofnon- individuals can indicate a response toinfection, inflammation, or other stimulus to the bonemarrow" NUCLEATED RBC % (test code = NRBC%) 0.0 % 0-0 N NEUTROPHIL # (test code = NT#) 12.37 K/mm3 1.8-7.7 H IMMATURE GRANULOCYTE # (test code = IG#) 0.78 x10 3/uL 0-0.03 H LYMPHOCYTE # (test code = LY#) 0.79 K/mm3 1.0-5.0 L MONOCYTE # (test code = MO#) 1.29 K/mm3 0-0.8 H EOSINOPHIL # (test code = EO#) 0.03 K/mm3 0.0-0.5 N BASOPHIL # (test code = BA#) 0.05 K/mm3 0.0-0.2 N NUCLEATED RBC # (test code = NRBC#) 0.00 K/mm3 0.0-0.1 N MANUAL DIFF REQUIRED (test code = MDIFF) YES STAIN ACCEPTABILITY (test code = STN ACCEPTABLE) STAIN ACCEPTABLE TOTAL CELLS COUNTED (test code = TCC) 115 #CELLS SEGMENTED NEUTROPHILS (test code = SEG) 89.5 % 39-69 H BAND NEUTROPHIL (test code = BAND) 0 % 0-10 N LYMPHOCYTE (test code = LYMPH) 6.1 % 25-55 L REACTIVE LYMPH (test code = RELYMPH) 0.9 % MONOCYTE (test code = MON) 2.6 % 0-10 N EOSINOPHIL (test code = EOS) 0.9 % 0.0-5.0 N BASOPHIL (test code = BASO) 0 % 0-1.0 N METAMYELOCYTE (test code = META) 0 % 0-0 N MYELOCYTE (test code = MYELO) 0 % 0.0-0.0 N PROMYELOCYTE (test code = PROM) 0 % 0-0 N PLATELET ESTIMATE (test code = PLTEST) ADEQUATE PLATELET MORPHOLOGY (test code = PLTMORPH) NORMAL IMMATURE FORMS (test code = IMMAT) 0 % 0-0 N [id number] 11:39:00* Test Item Value Reference Range Interpretation Comments GLUBED (test code = GLUBED) 243 mg/dL 74-106 H Performed by certified glove machine operator at [facility] COMPREHENSIVE METABOLIC [id number] 11:36:00* Test Item Value Reference Range Interpretation Comments SODIUM (test code = NA) 132 mmol/L 136-145 L POTASSIUM (test code = K) 3.6 mmol/L 3.5-5.1 N CHLORIDE (test code = CL) 96.0 mmol/L 98-107 L CARBON DIOXIDE (test code = CO2) 29.0 mmol/L 21-32 N ANION GAP (test code = GAP) 10.6 10-20 N GLUCOSE (test code = GLU) 245 mg/dL 74-106 H BLOOD UREA NITROGEN (test code = BUN) 10 mg/dL 7-18 N GLOMERULAR FILTRATION RATE (test code = GFR) > 60 mL/min >=60 Estimated GFR by using Modified MDRD formula.Chronic kidney disease is defined as either kidney damageor GFR <60 mL/min/1.73 m2 for >3 months. CREATININE (test code = CREAT) 0.50 mg/dL 0.55-1.02 L Note change in reference range due to change in reagent. BUN/CREATININE RATIO (test code = BUN/CREA) 20.0 10-20 N TOTAL PROTEIN (test code = PROT) 5.0 gram/dL 6.4-8.2 L ALBUMIN (test code = ALB) 2.5 g/dL 3.4-5.0 L GLOBULIN (test code = GLOB) 2.5 gram/dL 2.7-4.2 L ALBUMIN/GLOBULIN RATIO (test code = A/G) 1.0 0.75-1.50 N CALCIUM (test code = CA) 7.9 mg/dL 8.5-10.1 L BILIRUBIN TOTAL (test code = BILT) 0.50 mg/dL 0.0-1.0 N SGOT/AST (test code = AST) 10 IUnit/L 15-37 L SGPT/ALT (test code = ALT) 16 IUnit/L 12-78 N ALKALINE PHOSPHATASE TOTAL (test code = ALKP) 91 IUnit/L 45-117 N Note change in reference range due to change in reagent. [id number] 11:36:00* Test Item Value Reference Range Interpretation Comments MAGNESIUM (test code = MAG) 2.1 mg/dL 1.8-2.4 N CBC W/MANUAL [id number] 11:26:00* Test Item Value Reference Range Interpretation Comments WHITE BLOOD CELL (test code = WBC) 15.3 K/mm3 4.5-12.5 H RED BLOOD CELL (test code = RBC) 3.48 mill/mm3 3.7-5.2 L HEMOGLOBIN (test code = HGB) 10.4 gram/dL 11.5-15.5 L HEMATOCRIT (test code = HCT) 30.0 % 36.0-46.0 L MEAN CELL VOLUME (test code = MCV) 86.2 fL 80-98 N MEAN CELL HGB (test code = MCH) 29.9 picogram 27.0-33.0 N MEAN CELL HGB CONCETRATION (test code = MCHC) 34.7 gram/dL 33.0-36. 0 N RED CELL DISTRIBUTION WIDTH (test code = RDW) 12.6 % 11.6-16. 2 N RED CELL DISTRIBUTION WIDTH SD (test code = RDW-SD) 38.1 fL 37 .0-51.0 N PLATELET COUNT (test code = PLT) 271 K/mm3 150-450 N MEAN PLATELET VOLUME (test code = MPV) 10.3 fL 6.7-11.0 N IMMATURE GRANULOCYTE % (test code = IG%) 5.1 % 0.0-5.0 H "The appearance of immature granulocytes (myelocytes,pro-myelocytes, meta-myelocytes) in the peripheral blood ofnon- individuals can indicate a response toinfection, inflammation, or other stimulus to the bonemarrow" NUCLEATED RBC % (test code = NRBC%) 0.0 % 0-0 N NEUTROPHIL # (test code = NT#) 12.37 K/mm3 1.8-7.7 H IMMATURE GRANULOCYTE # (test code = IG#) 0.78 x10 3/uL 0-0.03 H LYMPHOCYTE # (test code = LY#) 0.79 K/mm3 1.0-5.0 L MONOCYTE # (test code = MO#) 1.29 K/mm3 0-0.8 H EOSINOPHIL # (test code = EO#) 0.03 K/mm3 0.0-0.5 N BASOPHIL # (test code = BA#) 0.05 K/mm3 0.0-0.2 N NUCLEATED RBC # (test code = NRBC#) 0.00 K/mm3 0.0-0.1 N MANUAL DIFF REQUIRED (test code = MDIFF) YES STAIN ACCEPTABILITY (test code = STN ACCEPTABLE) TOTAL CELLS COUNTED (test code = TCC) #CELLS SEGMENTED NEUTROPHILS (test code = SEG) % 39-69 LYMPHOCYTE (test code = LYMPH) % 25-55 MONOCYTE (test code = MON) % 0-10 EOSINOPHIL (test code = EOS) % 0.0-5.0 CABOT RINGS (test code = CAB) MORPHOLOGY COMMENT (test code = MOC) PLATELET ESTIMATE (test code = PLTEST) PLATELET MORPHOLOGY (test code = PLTMORPH) CBC W/MANUAL [id number] 11:26:00* Test Item Value Reference Range Interpretation Comments WHITE BLOOD CELL (test code = WBC) 15.3 K/mm3 4.5-12.5 H RED BLOOD CELL (test code = RBC) 3.48 mill/mm3 3.7-5.2 L HEMOGLOBIN (test code = HGB) 10.4 gram/dL 11.5-15.5 L HEMATOCRIT (test code = HCT) 30.0 % 36.0-46.0 L MEAN CELL VOLUME (test code = MCV) 86.2 fL 80-98 N MEAN CELL HGB (test code = MCH) 29.9 picogram 27.0-33.0 N MEAN CELL HGB CONCETRATION (test code = MCHC) 34.7 gram/dL 33.0-36. 0 N RED CELL DISTRIBUTION WIDTH (test code = RDW) 12.6 % 11.6-16. 2 N RED CELL DISTRIBUTION WIDTH SD (test code = RDW-SD) 38.1 fL 37 .0-51.0 N PLATELET COUNT (test code = PLT) 271 K/mm3 150-450 N MEAN PLATELET VOLUME (test code = MPV) 10.3 fL 6.7-11.0 N IMMATURE GRANULOCYTE % (test code = IG%) 5.1 % 0.0-5.0 H "The appearance of immature granulocytes (myelocytes,pro-myelocytes, meta-myelocytes) in the peripheral blood ofnon- individuals can indicate a response toinfection, inflammation, or other stimulus to the bonemarrow" NUCLEATED RBC % (test code = NRBC%) 0.0 % 0-0 N NEUTROPHIL # (test code = NT#) 12.37 K/mm3 1.8-7.7 H IMMATURE GRANULOCYTE # (test code = IG#) 0.78 x10 3/uL 0-0.03 H LYMPHOCYTE # (test code = LY#) 0.79 K/mm3 1.0-5.0 L MONOCYTE # (test code = MO#) 1.29 K/mm3 0-0.8 H EOSINOPHIL # (test code = EO#) 0.03 K/mm3 0.0-0.5 N BASOPHIL # (test code = BA#) 0.05 K/mm3 0.0-0.2 N NUCLEATED RBC # (test code = NRBC#) 0.00 K/mm3 0.0-0.1 N MANUAL DIFF REQUIRED (test code = MDIFF) YES STAIN ACCEPTABILITY (test code = STN ACCEPTABLE) TOTAL CELLS COUNTED (test code = TCC) #CELLS SEGMENTED NEUTROPHILS (test code = SEG) % 39-69 LYMPHOCYTE (test code = LYMPH) % 25-55 MONOCYTE (test code = MON) % 0-10 EOSINOPHIL (test code = EOS) % 0.0-5.0 CABOT RINGS (test code = CAB) MORPHOLOGY COMMENT (test code = MOC) PLATELET ESTIMATE (test code = PLTEST) PLATELET MORPHOLOGY (test code = PLTMORPH) CBC W/MANUAL [id number] 11:26:00* Test Item Value Reference Range Interpretation Comments WHITE BLOOD CELL (test code = WBC) 15.3 K/mm3 4.5-12.5 H RED BLOOD CELL (test code = RBC) 3.48 mill/mm3 3.7-5.2 L HEMOGLOBIN (test code = HGB) 10.4 gram/dL 11.5-15.5 L HEMATOCRIT (test code = HCT) 30.0 % 36.0-46.0 L MEAN CELL VOLUME (test code = MCV) 86.2 fL 80-98 N MEAN CELL HGB (test code = MCH) 29.9 picogram 27.0-33.0 N MEAN CELL HGB CONCETRATION (test code = MCHC) 34.7 gram/dL 33.0-36. 0 N RED CELL DISTRIBUTION WIDTH (test code = RDW) 12.6 % 11.6-16. 2 N RED CELL DISTRIBUTION WIDTH SD (test code = RDW-SD) 38.1 fL 37 .0-51.0 N PLATELET COUNT (test code = PLT) 271 K/mm3 150-450 N MEAN PLATELET VOLUME (test code = MPV) 10.3 fL 6.7-11.0 N IMMATURE GRANULOCYTE % (test code = IG%) 5.1 % 0.0-5.0 H "The appearance of immature granulocytes (myelocytes,pro-myelocytes, meta-myelocytes) in the peripheral blood ofnon- individuals can indicate a response toinfection, inflammation, or other stimulus to the bonemarrow" NUCLEATED RBC % (test code = NRBC%) 0.0 % 0-0 N NEUTROPHIL # (test code = NT#) 12.37 K/mm3 1.8-7.7 H IMMATURE GRANULOCYTE # (test code = IG#) 0.78 x10 3/uL 0-0.03 H LYMPHOCYTE # (test code = LY#) 0.79 K/mm3 1.0-5.0 L MONOCYTE # (test code = MO#) 1.29 K/mm3 0-0.8 H EOSINOPHIL # (test code = EO#) 0.03 K/mm3 0.0-0.5 N BASOPHIL # (test code = BA#) 0.05 K/mm3 0.0-0.2 N NUCLEATED RBC # (test code = NRBC#) 0.00 K/mm3 0.0-0.1 N MANUAL DIFF REQUIRED (test code = MDIFF) YES STAIN ACCEPTABILITY (test code = STN ACCEPTABLE) TOTAL CELLS COUNTED (test code = TCC) #CELLS SEGMENTED NEUTROPHILS (test code = SEG) % 39-69 LYMPHOCYTE (test code = LYMPH) % 25-55 MONOCYTE (test code = MON) % 0-10 EOSINOPHIL (test code = EOS) % 0.0-5.0 MORPHOLOGY COMMENT (test code = MOC) PLATELET ESTIMATE (test code = PLTEST) PLATELET MORPHOLOGY (test code = PLTMORPH) CBC W/MANUAL [id number] 11:26:00* Test Item Value Reference Range Interpretation Comments WHITE BLOOD CELL (test code = WBC) 15.3 K/mm3 4.5-12.5 H RED BLOOD CELL (test code = RBC) 3.48 mill/mm3 3.7-5.2 L HEMOGLOBIN (test code = HGB) 10.4 gram/dL 11.5-15.5 L HEMATOCRIT (test code = HCT) 30.0 % 36.0-46.0 L MEAN CELL VOLUME (test code = MCV) 86.2 fL 80-98 N MEAN CELL HGB (test code = MCH) 29.9 picogram 27.0-33.0 N MEAN CELL HGB CONCETRATION (test code = MCHC) 34.7 gram/dL 33.0-36. 0 N RED CELL DISTRIBUTION WIDTH (test code = RDW) 12.6 % 11.6-16. 2 N RED CELL DISTRIBUTION WIDTH SD (test code = RDW-SD) 38.1 fL 37 .0-51.0 N PLATELET COUNT (test code = PLT) 271 K/mm3 150-450 N MEAN PLATELET VOLUME (test code = MPV) 10.3 fL 6.7-11.0 N IMMATURE GRANULOCYTE % (test code = IG%) 5.1 % 0.0-5.0 H "The appearance of immature granulocytes (myelocytes,pro-myelocytes, meta-myelocytes) in the peripheral blood ofnon- individuals can indicate a response toinfection, inflammation, or other stimulus to the bonemarrow" NUCLEATED RBC % (test code = NRBC%) 0.0 % 0-0 N NEUTROPHIL # (test code = NT#) 12.37 K/mm3 1.8-7.7 H IMMATURE GRANULOCYTE # (test code = IG#) 0.78 x10 3/uL 0-0.03 H LYMPHOCYTE # (test code = LY#) 0.79 K/mm3 1.0-5.0 L MONOCYTE # (test code = MO#) 1.29 K/mm3 0-0.8 H EOSINOPHIL # (test code = EO#) 0.03 K/mm3 0.0-0.5 N BASOPHIL # (test code = BA#) 0.05 K/mm3 0.0-0.2 N NUCLEATED RBC # (test code = NRBC#) 0.00 K/mm3 0.0-0.1 N MANUAL DIFF REQUIRED (test code = MDIFF) YES STAIN ACCEPTABILITY (test code = STN ACCEPTABLE) TOTAL CELLS COUNTED (test code = TCC) #CELLS SEGMENTED NEUTROPHILS (test code = SEG) % 39-69 LYMPHOCYTE (test code = LYMPH) % 25-55 MONOCYTE (test code = MON) % 0-10 MORPHOLOGY COMMENT (test code = MOC) PLATELET ESTIMATE (test code = PLTEST) PLATELET MORPHOLOGY (test code = PLTMORPH) CBC W/MANUAL [id number] 11:26:00* Test Item Value Reference Range Interpretation Comments WHITE BLOOD CELL (test code = WBC) 15.3 K/mm3 4.5-12.5 H RED BLOOD CELL (test code = RBC) 3.48 mill/mm3 3.7-5.2 L HEMOGLOBIN (test code = HGB) 10.4 gram/dL 11.5-15.5 L HEMATOCRIT (test code = HCT) 30.0 % 36.0-46.0 L MEAN CELL VOLUME (test code = MCV) 86.2 fL 80-98 N MEAN CELL HGB (test code = MCH) 29.9 picogram 27.0-33.0 N MEAN CELL HGB CONCETRATION (test code = MCHC) 34.7 gram/dL 33.0-36. 0 N RED CELL DISTRIBUTION WIDTH (test code = RDW) 12.6 % 11.6-16. 2 N RED CELL DISTRIBUTION WIDTH SD (test code = RDW-SD) 38.1 fL 37 .0-51.0 N PLATELET COUNT (test code = PLT) 271 K/mm3 150-450 N MEAN PLATELET VOLUME (test code = MPV) 10.3 fL 6.7-11.0 N IMMATURE GRANULOCYTE % (test code = IG%) 5.1 % 0.0-5.0 H "The appearance of immature granulocytes (myelocytes,pro-myelocytes, meta-myelocytes) in the peripheral blood ofnon- individuals can indicate a response toinfection, inflammation, or other stimulus to the bonemarrow" NUCLEATED RBC % (test code = NRBC%) 0.0 % 0-0 N NEUTROPHIL # (test code = NT#) 12.37 K/mm3 1.8-7.7 H IMMATURE GRANULOCYTE # (test code = IG#) 0.78 x10 3/uL 0-0.03 H LYMPHOCYTE # (test code = LY#) 0.79 K/mm3 1.0-5.0 L MONOCYTE # (test code = MO#) 1.29 K/mm3 0-0.8 H EOSINOPHIL # (test code = EO#) 0.03 K/mm3 0.0-0.5 N BASOPHIL # (test code = BA#) 0.05 K/mm3 0.0-0.2 N NUCLEATED RBC # (test code = NRBC#) 0.00 K/mm3 0.0-0.1 N MANUAL DIFF REQUIRED (test code = MDIFF) YES STAIN ACCEPTABILITY (test code = STN ACCEPTABLE) TOTAL CELLS COUNTED (test code = TCC) #CELLS SEGMENTED NEUTROPHILS (test code = SEG) % 39-69 LYMPHOCYTE (test code = LYMPH) % 25-55 MONOCYTE (test code = MON) % 0-10 EOSINOPHIL (test code = EOS) % 0.0-5.0 CABOT RINGS (test code = CAB) MORPHOLOGY COMMENT (test code = MOC) PLATELET ESTIMATE (test code = PLTEST) PLATELET MORPHOLOGY (test code = PLTMORPH) COMPREHENSIVE METABOLIC [id number] 11:23:00* Test Item Value Reference Range Interpretation Comments SODIUM (test code = NA) 132 mmol/L 136-145 L POTASSIUM (test code = K) 3.6 mmol/L 3.5-5.1 N CHLORIDE (test code = CL) 96.0 mmol/L 98-107 L CARBON DIOXIDE (test code = CO2) mmol/L 21-32 ANION GAP (test code = GAP) 10-20 GLUCOSE (test code = GLU) mg/dL 74-106 BLOOD UREA NITROGEN (test code = BUN) mg/dL 7-18 GLOMERULAR FILTRATION RATE (test code = GFR) mL/min >=60 CREATININE (test code = CREAT) mg/dL 0.55-1.02 BUN/CREATININE RATIO (test code = BUN/CREA) 10-20 TOTAL PROTEIN (test code = PROT) gram/dL 6.4-8.2 ALBUMIN (test code = ALB) g/dL 3.4-5.0 GLOBULIN (test code = GLOB) gram/dL 2.7-4.2 ALBUMIN/GLOBULIN RATIO (test code = A/G) 0.75-1.50 CALCIUM (test code = CA) mg/dL 8.5-10.1 BILIRUBIN TOTAL (test code = BILT) mg/dL 0.0-1.0 SGOT/AST (test code = AST) IUnit/L 15-37 SGPT/ALT (test code = ALT) IUnit/L 12-78 ALKALINE PHOSPHATASE TOTAL (test code = ALKP) IUnit/L 45-117 [id number] 11:23:00* Test Item Value Reference Range Interpretation Comments MAGNESIUM (test code = MAG) mg/dL 1.8-2.4 [id number] 05:40:00* Test Item Value Reference Range Interpretation Comments GLUBED (test code = GLUBED) 190 mg/dL 74-106 H Performed by certified glove machine operator at [facility] [id number] 00:36:00* Test Item Value Reference Range Interpretation Comments GLUBED (test code = GLUBED) 191 mg/dL 74-106 H Performed by certified glove machine operator at [facility] [id number] 20:32:00* Test Item Value Reference Range Interpretation Comments GLUBED (test code = GLUBED) 247 mg/dL 74-106 H Performed by certified glove machine operator at [facility] [id number] 16:22:00* Test Item Value Reference Range Interpretation Comments GLUBED (test code = GLUBED) 208 mg/dL 74-106 H Performed by certified glove machine operator at [facility] - XR SWLW FUNC W/C [id number] 16:05:00 FAX: Ruel Hicks [phone] [place]: St: ADM Name: TARA ENW [facility] : [birth year] Age/S: 79/F [address] [facility] Unit #: [id number] Loc: V.5003 [place] [address] Phys: Ruel Hicks MD Acct: [id number] Dis Date: Status: ADM IN PHONE #: [phone] Exam Date: 08/21/2019 0112 FAX #: [phone] Reason: DYSPHAGIA EXAMS: CPT CODE: [id number] XR SWLW FUNC W/C V [id number] EXAM: Modified barium swallow; INFORMATION: Dysphagia; IMPRESSION: 1. No bolivar dence of aspiration or laryngeal penetration. 2. Pyriform sinus pooling was observed within liquids. Fluoroscopy Time: 103.8 sec CAK : 4.4 mGy Location code: [facility] at 1605 Reported and signed by: Evan Kauffman M.D. CC: Ruel Hicks MD Technologist: LOBO RANGEL) Claribel Date/Time/By: 08/21/2019 (3460) : By: SaloGRW Orig Print D/T: S: 08/21/2019 (8945) PAGE 1 Signed Report - XR SWLW FUNC W/C V 2019-08-21 16:05:00 FAX: Ruel Hicks [phone] [place]: St: [facility]: [facility] [birth year] Age[facility]S: 79/F [address] [facility] Unit #: [id number] Loc: V.[address] [place] [address] Phys: Ruel Hicks MD Acct: [id number] Dis Date: Status: ADM IN PHONE #: [phone] Exam Date: 08/21/2019 1445 FAX #: [phone] Reason: DYSPHAGIA EXAMS: CPT CODE: [id number] XR SWLW FUNC W/C V 43173 EXAM: Modified barium swallow; INFORMATION: Dysphagia; IMPRESSION: 1. No bolivar dence of aspiration or laryngeal penetration. 2. Pyriform sinus pooling was observed within liquids. Fluoroscopy Time: 103.8 sec CAK : 4.4 mGy Location code: [facility] at 1605 Reported and signed by: Evan Kauffman M.D. CC: Ruel Hicks MD Technologist: LOBO RANGEL) Claribel Date/Time/By: 08/21/2019 (0207) : By: SaloGRW Orig Print D/T: S: 08/21/2019 (6592) PAGE 1 Signed Report - CT HEAD/BRAIN W/O CONT 2019-08-21 12:54:00 Name: TARA RO [facility] : 1940 Age/S: 79 / F [address] [facility] Unit #: [id number] Loc: [place] [address] Phys: J Luis Berg MD Acct: [id number] Dis Date: Status: ADM IN PHONE #: [phone] Exam Date: 08/21/2019 1244 FAX #: [phone] Reason: CHANGE IN LOC EXAMS: CPT CODE: [id number] CT HEAD/BRAIN W/O CONT 09043 REASON FOR EXAM: CHANGE IN LOC EXAM ORDER DATE: 08/21/2019 11:36 AM Ordering: J Luis Berg MD Attending:Holli العراقي MD Location:[facility] PROCEDURE: - CT HEAD/BRAIN W/O CONT COMPARISON: 08/16/2019 FINDINGS: CT images of the brain were obtained without IV contrast. Dose modulation, iterative reconstruction, and/or weight based adjustment of the MA/KV was utilized to reduce the radiation dose to as low as reasonably achievable. When compared to previous exam, again seen is the subarachnoid hemorrhage most pronounced in the right occipital lobe, intraparenchymal hemorrhage most pronounced in the left temporal lobe. Minimal intraventricular hemorrhages. Left frontal temporal craniotomy changes are again seen. IMPRESSION: Slight improvement of the intraparenchymal, subarachnoid, and intraventricular hemorrhages. at 1254 Reported and signed by: Jose Rafael Cartagena M.D. CC: Holli العراقي MD; J Luis Berg MD Technologist:Brendan Adam RT(R),(MR),(CT) CTDI: DLP: Trnscb Date/Time: 08/21/19 (9784) SaloVTL Orig Print D/T: S: 08/21/2019 (9229) PAGE 1 Signed Report - CT HEAD/BRAIN W/O [id number] 12:54:00 Name: TARA RO [facility] : 1940 Age/S: 79 / F [address] Unit #: [id number] Loc: [place] [address] Phys: J Luis Berg MD Acct: [id number] Dis Date: Status: ADM IN PHONE #: [phone] Exam Date: 08/21/2019 1242 FAX #: [phone] Reason: CHANGE IN LOC EXAMS: CPT CODE: [id number] CT HEAD/BRAIN W/O CONT 66071 REASON FOR EXAM: CHANGE IN LOC EXAM ORDER DATE: 08/21/2019 11:36 AM Ordering: J Luis Berg MD Attending:Holli العراقي MD Location:[facility] PROCEDURE: - CT HEAD/BRAIN W/O CONT COMPARISON: 08/16/2019 FINDINGS: CT images of the brain were obtained without IV contrast. Dose modulation, iterative reconstruction, and/or weight based adjustment of the MA/KV was utilized to reduce the radiation dose to as low as reasonably achievable. When compared to previous exam, again seen is the subarachnoid hemorrhage most pronounced in the right occipital lobe, intraparenchymal hemorrhage most pronounced in the left temporal lobe. Minimal intraventricular hemorrhages. Left frontal temporal c raniotomy changes are again seen. IMPRESSION: Slight impro vement of the intraparenchymal, subarachnoid, and intraventricular hemor rhages. at 1254 Reported and signed by: Jose Rafael Cartagena M.D. CC: Holli العراقي MD; J Luis Berg MD Technologist:Brendan Adam RT(R),(MR),(CT) CTDI: DLP: Trnscb Date/Time: 08/21/19 (1253) tIANL Orig Print D/T: S: 08/21/2019 (2299) PAGE 1 Signed Report PROCALCITONIN (PCT)2019-08-21 12:51:00* Test Item Value Reference Range Interpretation Comments PROCALCITONIN (PCT) (test code = PROCAL) 0.17 ng/ml Concentration Interpretation (ng/mL) <0.51 Sepsis is not likely. Local bacterial infection is possible. (LOW RISK for progression to Sepsis) 0.51 - 2.00 Sepsis is possible, but other conditions are known to elevate PCT as well. (MODERATE RISK for progression to Sepsis) > 2.00 Sepsis is likely, unless other causes are known. (HIGH RISK for progression to Severe Sepsis or Septic Shock) 10.00 High likelihood of Severe Sepsis or Septic or higher Shock. *Increased PCT levels may not always be related to systemic bacterial infection.*Low PCT levels do not automatically exclude the presence of bacterial infection.*All results should be interpreted taking into account the patients history. BASIC METABOLIC [id number] 11:51:00* Test Item Value Reference Range Interpretation Comments SODIUM (test code = NA) 130 mmol/L 136-145 L POTASSIUM (test code = K) 3.3 mmol/L 3.5-5.1 L CHLORIDE (test code = CL) 95.0 mmol/L 98-107 L CARBON DIOXIDE (test code = CO2) 27.0 mmol/L 21-32 N ANION GAP (test code = GAP) 11.3 10-20 N GLUCOSE (test code = GLU) 213 mg/dL 74-106 H BLOOD UREA NITROGEN (test code = BUN) 7 mg/dL 7-18 N GLOMERULAR FILTRATION RATE (test code = GFR) > 60 mL/min >=60 Estimated GFR by using Modified MDRD formula.Chronic kidney disease is defined as either kidney damageor GFR <60 mL/min/1.73 m2 for >3 months. CREATININE (test code = CREAT) 0.40 mg/dL 0.55-1.02 L Note change in reference range due to change in reagent. BUN/CREATININE RATIO (test code = BUN/CREA) 17.5 10-20 N CALCIUM (test code = CA) 8.1 mg/dL 8.5-10.1 L LACTIC [id number] 11:51:00* Test Item Value Reference Range Interpretation Comments LACTIC ACID (test code = LACT) 0.9 mmol/L 0.4-1.9 N BASIC METABOLIC [id number] 11:46:00* Test Item Value Reference Range Interpretation Comments SODIUM (test code = NA) 130 mmol/L 136-145 L POTASSIUM (test code = K) 3.3 mmol/L 3.5-5.1 L CHLORIDE (test code = CL) 95.0 mmol/L 98-107 L CARBON DIOXIDE (test code = CO2) mmol/L 21-32 ANION GAP (test code = GAP) 10-20 GLUCOSE (test code = GLU) mg/dL 74-106 BLOOD UREA NITROGEN (test code = BUN) mg/dL 7-18 GLOMERULAR FILTRATION RATE (test code = GFR) mL/min >=60 CREATININE (test code = CREAT) mg/dL 0.55-1.02 BUN/CREATININE RATIO (test code = BUN/CREA) 10-20 CALCIUM (test code = CA) 8.1 mg/dL 8.5-10.1 L [id number] 11:40:00* Test Item Value Reference Range Interpretation Comments GLUBED (test code = GLUBED) 186 mg/dL 74-106 H Performed by certified glove machine operator at [facility] CBC W/AUTO [id number] 11:35:00* Test Item Value Reference Range Interpretation Comments WHITE BLOOD CELL (test code = WBC) 15.1 K/mm3 4.5-12.5 H RED BLOOD CELL (test code = RBC) 3.61 mill/mm3 3.7-5.2 L HEMOGLOBIN (test code = HGB) 10.9 gram/dL 11.5-15.5 L HEMATOCRIT (test code = HCT) 30.7 % 36.0-46.0 L MEAN CELL VOLUME (test code = MCV) 85.0 fL 80-98 N MEAN CELL HGB (test code = MCH) 30.2 picogram 27.0-33.0 N MEAN CELL HGB CONCETRATION (test code = MCHC) 35.5 gram/dL 33.0-36. 0 N RED CELL DISTRIBUTION WIDTH (test code = RDW) 12.5 % 11.6-16. 2 N RED CELL DISTRIBUTION WIDTH SD (test code = RDW-SD) 37.5 fL 37 .0-51.0 N PLATELET COUNT (test code = PLT) 245 K/mm3 150-450 N MEAN PLATELET VOLUME (test code = MPV) 10.2 fL 6.7-11.0 N NEUTROPHIL % (test code = NT%) 82.5 % 39.0-69.0 H IMMATURE GRANULOCYTE % (test code = IG%) 4.5 % 0.0-5.0 N LYMPHOCYTE % (test code = LY%) 6.2 % 25.0-55.0 L MONOCYTE % (test code = MO%) 6.2 % 0.0-10.0 N EOSINOPHIL % (test code = EO%) 0.5 % 0.0-5.0 N BASOPHIL % (test code = BA%) 0.1 % 0.0-1.0 N NUCLEATED RBC % (test code = NRBC%) 0.0 % 0-0 N NEUTROPHIL # (test code = NT#) 12.41 K/mm3 1.8-7.7 H IMMATURE GRANULOCYTE # (test code = IG#) 0.68 x10 3/uL 0-0.03 H LYMPHOCYTE # (test code = LY#) 0.94 K/mm3 1.0-5.0 L MONOCYTE # (test code = MO#) 0.94 K/mm3 0-0.8 H EOSINOPHIL # (test code = EO#) 0.08 K/mm3 0.0-0.5 N BASOPHIL # (test code = BA#) 0.02 K/mm3 0.0-0.2 N NUCLEATED RBC # (test code = NRBC#) 0.00 K/mm3 0.0-0.1 N [id number] 07:47:00* Test Item Value Reference Range Interpretation Comments GLUBED (test code = GLUBED) 189 mg/dL 74-106 H Performed by certified glove machine operator at [facility] [id number] 06:21:00* Test Item Value Reference Range Interpretation Comments GLUBED (test code = GLUBED) 186 mg/dL 74-106 H Performed by certified glove machine operator at [facility] [id number] 23:59:00* Test Item Value Reference Range Interpretation Comments GLUBED (test code = GLUBED) 268 mg/dL 74-106 H Performed by certified glove machine operator at [facility] [id number] 20:21:00* Test Item Value Reference Range Interpretation Comments GLUBED (test code = GLUBED) 240 mg/dL 74-106 H Performed by certified glove machine operator at [facility] - XR HIP BI [id number] 20:05:00 FAX: Holli العراقي MD [place]: St: ADM Name: TARA NEW [facility] : [birth year] Age/S: 79/F [address] [facility] Unit #: [id number] Loc: V.5003 [place] [address] Phys: Holli العراقي MD Acct: [id number] Dis Date: Status: ADM IN PHONE #: [phone] Exam Date: 08/20/20191919 FAX #: [phone] Reason: PT FELL ON 08/19/19 EXAMS: CPT CODE: [id number] XR HIP BI W/PELVIS 53003 HISTORY: Fall and pain. COMPARISON: None available. 3 views of right and left hip: Location: TH. No acute fracture or dislocation of either hip. Hip joint is moderately narrowed bilaterally. No AVN. Trabecular pattern and mineralization are normal. Symphysis is well opposed. SI alison ints are preserved. Soft tissues are normal. IMPRESSION: No acute fracture or dislocation. Hip joints are narrowed ehide aterally without AVN. at 2004 Reported and signed by: Anand Cazares M.D. CC: Holli العراقي MD Technologist: Omkar Mcclure RT(R) Trnscrd Date/Time/By: 08/20/2019 (2004) : By: [email or web address] Orig Print D/T: S: 08/20/2019 (2007) PAGE 1 Signed Report - XR HIP BI [id number] 20:05:00 FAX: Holil العراقي MD [place]: St: ADM Name: TARA NEW [facility] : [birth year] 40 Age/S: 79/F [address] [facility] [facility] Unit #: [id number] Loc: V.5003 [place] [address] Phys: Holli العراقي MD Acct: [id number] Dis Date: Status: ADM IN PHONE #: [phone] Exam Date: 08/20/20191919 FAX #: [phone] Reason: PT FELL ON 08/19/19 EXAMS: CPT CODE: [id number] XR HIP BI W/PELVIS 82033 HISTORY: Fall and pain. COMPARISON: None available. 3 views of right and left hip: Location: TH. No acute fracture or dislocation of either hip. Hip joint is moderately narrowed bilaterally. No AVN. Trabecular pattern and mineralization are normal. Symphysis is well opposed. SI alison ints are preserved. Soft tissues are normal. IMPRESSION: No acute fracture or dislocation. Hip joints are narrowed heide aterally without AVN. at 2004 Reported and signed by: Anand Cazares M.D. CC: Holli العراقي MD Technologist: Omkar Mcclure RT(R) Trnscrd Date/Time/By: 08/20/2019 (2004) : By: [email or web address] Orig Print D/T: S: 08/20/2019 (2007) PAGE 1 Signed Report [id number] 16:14:00* Test Item Value Reference Range Interpretation Comments GLUBED (test code = GLUBED) 360 mg/dL 74-106 H Performed by certified glove machine operator at [facility] UR [id number] 14:10:00* Test Item Value Reference Range Interpretation Comments UR NA,RANDOM (test code = JOHN) 65 mmol/L 20-110 N URINE K, RANDOM (test code = KU) 37.0 mmol/L 12-75 N UR CHLORIDE RANDOM (test code = CLU) 61 mEq/L UR OSMOLALITY [id number] 14:10:00* Test Item Value Reference Range Interpretation Comments UR OSMOLALITY RANDOM (test code = OSMOU) 529 mOsm/kg 48-962 N UR [id number] 13:27:00* Test Item Value Reference Range Interpretation Comments UR NA,RANDOM (test code = JOHN) 65 mmol/L 20-110 N URINE K, RANDOM (test code = KU) 37.0 mmol/L 12-75 N UR CHLORIDE RANDOM (test code = CLU) 61 mEq/L UR OSMOLALITY [id number] 13:27:00* Test Item Value Reference Range Interpretation Comments UR OSMOLALITY RANDOM (test code = OSMOU) mOsm/kg 48-962 URINALYSIS [id number] 12:39:00* Test Item Value Reference Range Interpretation Comments UA COLOR (test code = COLU) YELLOW YELLOW UA APPEARANCE (test code = APPU) Cloudy CLEAR A UA GLUCOSE DIPSTICK (test code = DGLUU) 1000 (3+) mg/dL NEGATIVE A UA BILIRUBIN DIPSTICK (test code = BILU) NEGATIVE mg/dL NEGATIVE UA KETONE DIPSTICK (test code = KETU) 10 (1+) mg/dL NEGATIVE A UA SPECIFIC GRAVITY (test code = SGU) 1.014 1.001-1.035 UA BLOOD DIPSTICK (test code = KIAN) 0.06 mg/dL (1+) mg/dL NEGATIVE A UA PH DIPSTICK (test code = ANGELIA) 6.0 5.0-8.0 UA PROTEIN DIPSTICK (test code = PROU) 20 (Trace) mg/dL NEGATIVE A UA UROBILINIOGEN DIPSTICK (test code = URO) Normal mg/dL NEGATIVE UA NITRITE DIPSTICK (test code = CAROLINE) NEGATIVE NEGATIVE UA LEUKOCYTE ESTERASE W REFLEX (test code = LEUUR) 250 Elodia/u L (2+) Elodia/uL NEGATIVE A UA WBC (test code = WBCU) 21-50 per HPF 0-5 A UA RBC (test code = RBCU) 0-2 #/HPF 0-5 UA EPITHELIAL CELLS (test code = EPIU) Few (2-5/hpf) per HPF FEW UA BACTERIA (test code = BACU) FEW #/HPF NONE A UA MUCUS (test code = MUCU) FEW #/LPF FEW Urine Source? Clean CatchCOMPREHENSIVE METABOLIC [id number] 12:21:00* Test Item Value Reference Range Interpretation Comments SODIUM (test code = NA) 137 mmol/L 136-145 N POTASSIUM (test code = K) 3.5 mmol/L 3.5-5.1 N CHLORIDE (test code = CL) 102.0 mmol/L 98-107 N CARBON DIOXIDE (test code = CO2) 25.0 mmol/L 21-32 N ANION GAP (test code = GAP) 13.5 10-20 N GLUCOSE (test code = GLU) 197 mg/dL 74-106 H BLOOD UREA NITROGEN (test code = BUN) 8 mg/dL 7-18 N GLOMERULAR FILTRATION RATE (test code = GFR) > 60 mL/min >=60 Estimated GFR by using Modified MDRD formula.Chronic kidney disease is defined as either kidney damageor GFR <60 mL/min/1.73 m2 for >3 months. CREATININE (test code = CREAT) 0.50 mg/dL 0.55-1.02 L Note change in reference range due to change in reagent. BUN/CREATININE RATIO (test code = BUN/CREA) 16.0 10-20 N TOTAL PROTEIN (test code = PROT) 5.5 gram/dL 6.4-8.2 L ALBUMIN (test code = ALB) 2.9 g/dL 3.4-5.0 L GLOBULIN (test code = GLOB) 2.6 gram/dL 2.7-4.2 L ALBUMIN/GLOBULIN RATIO (test code = A/G) 1.1 0.75-1.50 N CALCIUM (test code = CA) 8.3 mg/dL 8.5-10.1 L BILIRUBIN TOTAL (test code = BILT) 0.70 mg/dL 0.0-1.0 N SGOT/AST (test code = AST) 16 IUnit/L 15-37 N SGPT/ALT (test code = ALT) 21 IUnit/L 12-78 N ALKALINE PHOSPHATASE TOTAL (test code = ALKP) 90 IUnit/L 45-117 N Note change in reference range due to change in reagent. [id number] 12:21:00* Test Item Value Reference Range Interpretation Comments MAGNESIUM (test code = MAG) 2.0 mg/dL 1.8-2.4 N [id number] 12:18:00* Test Item Value Reference Range Interpretation Comments GLUBED (test code = GLUBED) 208 mg/dL 74-106 H Performed by certified glove machine operator at [facility] CBC W/AUTO [id number] 10:41:00* Test Item Value Reference Range Interpretation Comments WHITE BLOOD CELL (test code = WBC) 13.3 K/mm3 4.5-12.5 H RED BLOOD CELL (test code = RBC) 3.68 mill/mm3 3.7-5.2 L HEMOGLOBIN (test code = HGB) 11.2 gram/dL 11.5-15.5 L HEMATOCRIT (test code = HCT) 32.5 % 36.0-46.0 L MEAN CELL VOLUME (test code = MCV) 88.3 fL 80-98 N MEAN CELL HGB (test code = MCH) 30.4 picogram 27.0-33.0 N MEAN CELL HGB CONCETRATION (test code = MCHC) 34.5 gram/dL 33.0-36. 0 N RED CELL DISTRIBUTION WIDTH (test code = RDW) 12.8 % 11.6-16. 2 N RED CELL DISTRIBUTION WIDTH SD (test code = RDW-SD) 40.7 fL 37 .0-51.0 N PLATELET COUNT (test code = PLT) 211 K/mm3 150-450 N MEAN PLATELET VOLUME (test code = MPV) 10.3 fL 6.7-11.0 N NEUTROPHIL % (test code = NT%) 80.5 % 39.0-69.0 H IMMATURE GRANULOCYTE % (test code = IG%) 4.0 % 0.0-5.0 N LYMPHOCYTE % (test code = LY%) 7.5 % 25.0-55.0 L MONOCYTE % (test code = MO%) 7.4 % 0.0-10.0 N EOSINOPHIL % (test code = EO%) 0.5 % 0.0-5.0 N BASOPHIL % (test code = BA%) 0.1 % 0.0-1.0 N NUCLEATED RBC % (test code = NRBC%) 0.0 % 0-0 N NEUTROPHIL # (test code = NT#) 10.73 K/mm3 1.8-7.7 H IMMATURE GRANULOCYTE # (test code = IG#) 0.53 x10 3/uL 0-0.03 H LYMPHOCYTE # (test code = LY#) 1.00 K/mm3 1.0-5.0 N MONOCYTE # (test code = MO#) 0.99 K/mm3 0-0.8 H EOSINOPHIL # (test code = EO#) 0.07 K/mm3 0.0-0.5 N BASOPHIL # (test code = BA#) 0.01 K/mm3 0.0-0.2 N NUCLEATED RBC # (test code = NRBC#) 0.00 K/mm3 0.0-0.1 N [id number] 08:11:00* Test Item Value Reference Range Interpretation Comments GLUBED (test code = GLUBED) 246 mg/dL 74-106 H Performed by certified glove machine operator at [facility] [id number] 05:57:00* Test Item Value Reference Range Interpretation Comments GLUBED (test code = GLUBED) 285 mg/dL 74-106 H Performed by certified glove machine operator at [facility] [id number] 02:38:00* Test Item Value Reference Range Interpretation Comments GLUBED (test code = GLUBED) 247 mg/dL 74-106 H Performed by certified glove machine operator at [facility] [id number] 20:20:00* Test Item Value Reference Range Interpretation Comments GLUBED (test code = GLUBED) 262 mg/dL 74-106 H Performed by certified glove machine operator at [facility] [id number] 17:18:00* Test Item Value Reference Range Interpretation Comments GLUBED (test code = GLUBED) 346 mg/dL 74-106 H Performed by certified glove machine operator at [facility] [id number] 12:18:00* Test Item Value Reference Range Interpretation Comments GLUBED (test code = GLUBED) 214 mg/dL 74-106 H Performed by certified glove machine operator at [facility] [id number] 08:28:00* Test Item Value Reference Range Interpretation Comments GLUBED (test code = GLUBED) 161 mg/dL 74-106 H Performed by certified glove machine operator at [facility] [id number] 05:19:00* Test Item Value Reference Range Interpretation Comments GLUBED (test code = GLUBED) 190 mg/dL 74-106 H Performed by certified glove machine operator at [facility] BASIC METABOLIC [id number] 04:58:00* Test Item Value Reference Range Interpretation Comments SODIUM (test code = NA) 149 mmol/L 136-145 H POTASSIUM (test code = K) 3.2 mmol/L 3.5-5.1 L CHLORIDE (test code = CL) 113.0 mmol/L 98-107 H CARBON DIOXIDE (test code = CO2) 30.0 mmol/L 21-32 N ANION GAP (test code = GAP) 9.2 10-20 L GLUCOSE (test code = GLU) 180 mg/dL 74-106 H BLOOD UREA NITROGEN (test code = BUN) 14 mg/dL 7-18 N GLOMERULAR FILTRATION RATE (test code = GFR) > 60 mL/min >=60 Estimated GFR by using Modified MDRD formula.Chronic kidney disease is defined as either kidney damageor GFR <60 mL/min/1.73 m2 for >3 months. CREATININE (test code = CREAT) 0.50 mg/dL 0.55-1.02 L Note change in reference range due to change in reagent. BUN/CREATININE RATIO (test code = BUN/CREA) 28.0 10-20 H CALCIUM (test code = CA) 8.7 mg/dL 8.5-10.1 N BASIC METABOLIC [id number] 04:49:00* Test Item Value Reference Range Interpretation Comments SODIUM (test code = NA) 149 mmol/L 136-145 H POTASSIUM (test code = K) 3.2 mmol/L 3.5-5.1 L CHLORIDE (test code = CL) 113.0 mmol/L 98-107 H CARBON DIOXIDE (test code = CO2) mmol/L 21-32 ANION GAP (test code = GAP) 10-20 GLUCOSE (test code = GLU) mg/dL 74-106 BLOOD UREA NITROGEN (test code = BUN) mg/dL 7-18 GLOMERULAR FILTRATION RATE (test code = GFR) mL/min >=60 CREATININE (test code = CREAT) mg/dL 0.55-1.02 BUN/CREATININE RATIO (test code = BUN/CREA) 10-20 CALCIUM (test code = CA) mg/dL 8.5-10.1 CBC W/AUTO [id number] 04:31:00* Test Item Value Reference Range Interpretation Comments WHITE BLOOD CELL (test code = WBC) 10.6 K/mm3 4.5-12.5 N RED BLOOD CELL (test code = RBC) 3.84 mill/mm3 3.7-5.2 N HEMOGLOBIN (test code = HGB) 11.6 gram/dL 11.5-15.5 N HEMATOCRIT (test code = HCT) 34.6 % 36.0-46.0 L MEAN CELL VOLUME (test code = MCV) 90.1 fL 80-98 N MEAN CELL HGB (test code = MCH) 30.2 picogram 27.0-33.0 N MEAN CELL HGB CONCETRATION (test code = MCHC) 33.5 gram/dL 33.0-36. 0 N RED CELL DISTRIBUTION WIDTH (test code = RDW) 13.1 % 11.6-16. 2 N RED CELL DISTRIBUTION WIDTH SD (test code = RDW-SD) 42.8 fL 37 .0-51.0 N PLATELET COUNT (test code = PLT) 214 K/mm3 150-450 N MEAN PLATELET VOLUME (test code = MPV) 10.3 fL 6.7-11.0 N NEUTROPHIL % (test code = NT%) 81.5 % 39.0-69.0 H IMMATURE GRANULOCYTE % (test code = IG%) 1.5 % 0.0-5.0 N LYMPHOCYTE % (test code = LY%) 8.4 % 25.0-55.0 L MONOCYTE % (test code = MO%) 8.2 % 0.0-10.0 N EOSINOPHIL % (test code = EO%) 0.4 % 0.0-5.0 N BASOPHIL % (test code = BA%) 0.0 % 0.0-1.0 N NUCLEATED RBC % (test code = NRBC%) 0.0 % 0-0 N NEUTROPHIL # (test code = NT#) 8.60 K/mm3 1.8-7.7 H IMMATURE GRANULOCYTE # (test code = IG#) 0.16 x10 3/uL 0-0.03 H LYMPHOCYTE # (test code = LY#) 0.89 K/mm3 1.0-5.0 L MONOCYTE # (test code = MO#) 0.86 K/mm3 0-0.8 H EOSINOPHIL # (test code = EO#) 0.04 K/mm3 0.0-0.5 N BASOPHIL # (test code = BA#) 0.00 K/mm3 0.0-0.2 N NUCLEATED RBC # (test code = NRBC#) 0.00 K/mm3 0.0-0.1 N MANUAL DIFF REQUIRED (test code = MDIFF) NO CBC W/AUTO [id number] 04:30:00* Test Item Value Reference Range Interpretation Comments WHITE BLOOD CELL (test code = WBC) K/mm3 4.5-12.5 RED BLOOD CELL (test code = RBC) mill/mm3 3.7-5.2 HEMOGLOBIN (test code = HGB) 11.6 gram/dL 11.5-15.5 N HEMATOCRIT (test code = HCT) % 36.0-46.0 MEAN CELL VOLUME (test code = MCV) fL 80-98 MEAN CELL HGB (test code = MCH) picogram 27.0-33.0 MEAN CELL HGB CONCETRATION (test code = MCHC) gram/dL 33.0-36. 0 RED CELL DISTRIBUTION WIDTH (test code = RDW) % 11.6-16. 2 RED CELL DISTRIBUTION WIDTH SD (test code = RDW-SD) fL 37 .0-51.0 PLATELET COUNT (test code = PLT) K/mm3 150-450 MEAN PLATELET VOLUME (test code = MPV) fL 6.7-11.0 NEUTROPHIL % (test code = NT%) % 39.0-69.0 IMMATURE GRANULOCYTE % (test code = IG%) % 0.0-5.0 LYMPHOCYTE % (test code = LY%) % 25.0-55.0 MONOCYTE % (test code = MO%) % 0.0-10.0 EOSINOPHIL % (test code = EO%) % 0.0-5.0 BASOPHIL % (test code = BA%) % 0.0-1.0 NEUTROPHIL # (test code = NT#) K/mm3 1.8-7.7 LYMPHOCYTE # (test code = LY#) K/mm3 1.0-5.0 MONOCYTE # (test code = MO#) K/mm3 0-0.8 EOSINOPHIL # (test code = EO#) K/mm3 0.0-0.5 BASOPHIL # (test code = BA#) K/mm3 0.0-0.2 [id number] 23:20:00* Test Item Value Reference Range Interpretation Comments GLUBED (test code = GLUBED) 197 mg/dL 74-106 H Performed by certified glove machine operator at [facility] [id number] 18:54:00* Test Item Value Reference Range Interpretation Comments GLUBED (test code = GLUBED) 301 mg/dL 74-106 H Performed by certified glove machine operator at [facility] [id number] 13:04:00* Test Item Value Reference Range Interpretation Comments GLUBED (test code = GLUBED) 353 mg/dL 74-106 H Performed by certified glove machine operator at [facility] CBC W/AUTO [id number] 10:02:00* Test Item Value Reference Range Interpretation Comments WHITE BLOOD CELL (test code = WBC) 13.8 K/mm3 4.5-12.5 H RED BLOOD CELL (test code = RBC) 4.06 mill/mm3 3.7-5.2 N HEMOGLOBIN (test code = HGB) 12.2 gram/dL 11.5-15.5 N HEMATOCRIT (test code = HCT) 37.4 % 36.0-46.0 N MEAN CELL VOLUME (test code = MCV) 92.1 fL 80-98 N MEAN CELL HGB (test code = MCH) 30.0 picogram 27.0-33.0 N MEAN CELL HGB CONCETRATION (test code = MCHC) 32.6 gram/dL 33.0-36. 0 L RED CELL DISTRIBUTION WIDTH (test code = RDW) 13.3 % 11.6-16. 2 N RED CELL DISTRIBUTION WIDTH SD (test code = RDW-SD) 44.9 fL 37 .0-51.0 N PLATELET COUNT (test code = PLT) 254 K/mm3 150-450 N MEAN PLATELET VOLUME (test code = MPV) 10.2 fL 6.7-11.0 N NEUTROPHIL % (test code = NT%) 83.4 % 39.0-69.0 H IMMATURE GRANULOCYTE % (test code = IG%) 1.2 % 0.0-5.0 N LYMPHOCYTE % (test code = LY%) 7.2 % 25.0-55.0 L MONOCYTE % (test code = MO%) 8.1 % 0.0-10.0 N EOSINOPHIL % (test code = EO%) 0.0 % 0.0-5.0 N BASOPHIL % (test code = BA%) 0.1 % 0.0-1.0 N NUCLEATED RBC % (test code = NRBC%) 0.0 % 0-0 N NEUTROPHIL # (test code = NT#) 11.49 K/mm3 1.8-7.7 H IMMATURE GRANULOCYTE # (test code = IG#) 0.16 x10 3/uL 0-0.03 H LYMPHOCYTE # (test code = LY#) 0.99 K/mm3 1.0-5.0 L MONOCYTE # (test code = MO#) 1.11 K/mm3 0-0.8 H EOSINOPHIL # (test code = EO#) 0.00 K/mm3 0.0-0.5 N BASOPHIL # (test code = BA#) 0.01 K/mm3 0.0-0.2 N NUCLEATED RBC # (test code = NRBC#) 0.00 K/mm3 0.0-0.1 N MANUAL DIFF REQUIRED (test code = MDIFF) NO BASIC METABOLIC [id number] 10:01:00* Test Item Value Reference Range Interpretation Comments SODIUM (test code = NA) 146 mmol/L 136-145 H POTASSIUM (test code = K) 3.5 mmol/L 3.5-5.1 N CHLORIDE (test code = CL) 114.0 mmol/L 98-107 H CARBON DIOXIDE (test code = CO2) 28.0 mmol/L 21-32 N ANION GAP (test code = GAP) 7.5 10-20 L GLUCOSE (test code = GLU) 219 mg/dL 74-106 H BLOOD UREA NITROGEN (test code = BUN) 18 mg/dL 7-18 N GLOMERULAR FILTRATION RATE (test code = GFR) > 60 mL/min >=60 Estimated GFR by using Modified MDRD formula.Chronic kidney disease is defined as either kidney damageor GFR <60 mL/min/1.73 m2 for >3 months. CREATININE (test code = CREAT) 0.60 mg/dL 0.55-1.02 N Note change in reference range due to change in reagent. BUN/CREATININE RATIO (test code = BUN/CREA) 30.0 10-20 H CALCIUM (test code = CA) 8.8 mg/dL 8.5-10.1 N CBC W/AUTO [id number] 10:00:00* Test Item Value Reference Range Interpretation Comments WHITE BLOOD CELL (test code = WBC) K/mm3 4.5-12.5 RED BLOOD CELL (test code = RBC) mill/mm3 3.7-5.2 HEMOGLOBIN (test code = HGB) 12.2 gram/dL 11.5-15.5 N HEMATOCRIT (test code = HCT) 37.4 % 36.0-46.0 N MEAN CELL VOLUME (test code = MCV) fL 80-98 MEAN CELL HGB (test code = MCH) picogram 27.0-33.0 MEAN CELL HGB CONCETRATION (test code = MCHC) gram/dL 33.0-36. 0 RED CELL DISTRIBUTION WIDTH (test code = RDW) % 11.6-16. 2 RED CELL DISTRIBUTION WIDTH SD (test code = RDW-SD) fL 37 .0-51.0 PLATELET COUNT (test code = PLT) K/mm3 150-450 MEAN PLATELET VOLUME (test code = MPV) fL 6.7-11.0 NEUTROPHIL % (test code = NT%) % 39.0-69.0 IMMATURE GRANULOCYTE % (test code = IG%) % 0.0-5.0 LYMPHOCYTE % (test code = LY%) % 25.0-55.0 MONOCYTE % (test code = MO%) % 0.0-10.0 EOSINOPHIL % (test code = EO%) % 0.0-5.0 BASOPHIL % (test code = BA%) % 0.0-1.0 NEUTROPHIL # (test code = NT#) K/mm3 1.8-7.7 LYMPHOCYTE # (test code = LY#) K/mm3 1.0-5.0 MONOCYTE # (test code = MO#) K/mm3 0-0.8 EOSINOPHIL # (test code = EO#) K/mm3 0.0-0.5 BASOPHIL # (test code = BA#) K/mm3 0.0-0.2 BASIC METABOLIC [id number] 09:58:00* Test Item Value Reference Range Interpretation Comments SODIUM (test code = NA) 146 mmol/L 136-145 H POTASSIUM (test code = K) 3.5 mmol/L 3.5-5.1 N CHLORIDE (test code = CL) 114.0 mmol/L 98-107 H CARBON DIOXIDE (test code = CO2) mmol/L 21-32 ANION GAP (test code = GAP) 10-20 GLUCOSE (test code = GLU) mg/dL 74-106 BLOOD UREA NITROGEN (test code = BUN) mg/dL 7-18 GLOMERULAR FILTRATION RATE (test code = GFR) mL/min >=60 CREATININE (test code = CREAT) mg/dL 0.55-1.02 BUN/CREATININE RATIO (test code = BUN/CREA) 10-20 CALCIUM (test code = CA) 8.8 mg/dL 8.5-10.1 N [id number] 09:00:00* Test Item Value Reference Range Interpretation Comments GLUBED (test code = GLUBED) 170 mg/dL 74-106 H Performed by certified glove machine operator at [facility] [id number] 05:27:00* Test Item Value Reference Range Interpretation Comments GLUBED (test code = GLUBED) 175 mg/dL 74-106 H Performed by certified glove machine operator at [facility] [id number] 21:29:00* Test Item Value Reference Range Interpretation Comments GLUBED (test code = GLUBED) 206 mg/dL 74-106 H Performed by certified glove machine operator at [facility] [id number] 19:32:00* Test Item Value Reference Range Interpretation Comments GLUBED (test code = GLUBED) 273 mg/dL 74-106 H Performed by certified glove machine operator at [facility] [id number] 18:03:00* Test Item Value Reference Range Interpretation Comments GLUBED (test code = GLUBED) 403 mg/dL 74-106 H Performed by certified glove machine operator at [facility] [id number] 11:34:00* Test Item Value Reference Range Interpretation Comments GLUBED (test code = GLUBED) 309 mg/dL 74-106 H Performed by certified glove machine operator at [facility] - XR CHEST 1 [id number] 08:24:00 FAX: Chapito Kline [phone] [place]: [address]: ADM FAX: Ruel Hicks [phone] Name: TARA RO [facility] : 1940 Age/S: 79/F [address] [facility] Unit #: [id number] Loc: [address] [place] [address] Phys: Chapito Kline Acct: [id number] Dis Date: Status: ADM IN PHONE #: [phone] Exam Date: 08/17/2019526 FAX #: [phone] Reason: updated pulm view EXAMS: CPT CODE: [id number] XR CHEST 1 V 17683 REASON FOR EXAM: updated pulm view Exam Order Date: 08/17/2019 5:00 AM Ordering M.DGerardo: SUSI Kern PROCEDURE: - XR CHEST 1 V COMPARISON: Chest x-ray the previous morning FINDINGS: The lungs are clear. There is no pleural effusion or pneumothorax. Pulmonary vascularity is within normal limits. Cardiomediastinal silhouette is normal in size for technique. The mediastinal contours are within normal limits. Degenerative changes are present in the midthoracic spine. The visualized upper abdomen is within normal limits. IMPRESSION: No acute cardiopulmonary process. Location: at 0824 Reported and signed by: Kin Feliciano MD CC: Chapito Kline; Ruel Acosta MD Technologist: ALVARO Beach Trnscrd Date/Time/By: 08/17/2019 (823) : By: [email or web address] Orig Print D/T: S: 08/17/2019 (826) PAGE 1 Signed Report - XR CHEST 1 V 2019-08-17 08:24:00 FAX: Chapito Kline [phone] [place]: St: ADM FAX: Ruel Hicks [phone] Name: TARA RO [facility] : 1940 Age/S: 79/F [address] [facility] Unit #: [id number] Loc: [address] [address] Phys: Chapito Kline Acct: [id number] Dis Date: Status: ADM IN PHONE #: [phone] Exam Date: 08/17/2019526 FAX #: [phone] Reason: updated pulm view EXAMS: CPT CODE: [id number] XR CHEST 1 V 43254 REASON FOR EXAM: updated pulm view Exam Order Date: 08/17/2019 5:00 AM Ordering MGerardoDGerardo: SUSI Kern PROCEDURE: - XR CHEST 1 V COMPARISON: Chest x-ray the previous morning FINDINGS: The lungs are clear. There is no pleural effusion or pneumothorax. Pulmonary vascularity is within normal limits. Cardiomediastinal silhouette is normal in size for technique. The mediastinal contours are within normal limits. Degenerative changes are present in the midthoracic spine. The visualized upper abdomen is within normal limits. IMPRESSION: No acute cardiopulmonary process. Location: at 0824 Reported and signed by: Kin Feliciano MD CC: Chapito Kline; Ruel Acosta MD Technologist: ALVARO BOURGEOIS JR; Trinh Beach Trnscrd Date/Time/By: 08/17/2019 (823) : By: [email or web address] Orig Print D/T: S: 08/17/2019 (826) PAGE 1 Signed Report [id number] 05:54:00* Test Item Value Reference Range Interpretation Comments GLUBED (test code = GLUBED) 255 mg/dL 74-106 H Performed by certified glove machine operator at [facility] PROCALCITONIN (PCT)2019-08-17 03:32:00* Test Item Value Reference Range Interpretation Comments PROCALCITONIN (PCT) (test code = PROCAL) 0.13 ng/ml Concentration Interpretation (ng/mL) <0.51 Sepsis is not likely. Local bacterial infection is possible. (LOW RISK for progression to Sepsis) 0.51 - 2.00 Sepsis is possible, but other conditions are known to elevate PCT as well. (MODERATE RISK for progression to Sepsis) > 2.00 Sepsis is likely, unless other causes are known. (HIGH RISK for progression to Severe Sepsis or Septic Shock) 10.00 High likelihood of Severe Sepsis or Septic or higher Shock. *Increased PCT levels may not always be related to systemic bacterial infection.*Low PCT levels do not automatically exclude the presence of bacterial infection.*All results should be interpreted taking into account the patients history. BASIC METABOLIC [id number] 01:55:00* Test Item Value Reference Range Interpretation Comments SODIUM (test code = NA) 147 mmol/L 136-145 H POTASSIUM (test code = K) 3.7 mmol/L 3.5-5.1 N CHLORIDE (test code = CL) 111.0 mmol/L 98-107 H CARBON DIOXIDE (test code = CO2) 29.0 mmol/L 21-32 N ANION GAP (test code = GAP) 10.7 10-20 N GLUCOSE (test code = GLU) 252 mg/dL 74-106 H BLOOD UREA NITROGEN (test code = BUN) 19 mg/dL 7-18 H GLOMERULAR FILTRATION RATE (test code = GFR) > 60 mL/min >=60 Estimated GFR by using Modified MDRD formula.Chronic kidney disease is defined as either kidney damageor GFR <60 mL/min/1.73 m2 for >3 months. CREATININE (test code = CREAT) 0.60 mg/dL 0.55-1.02 N Note change in reference range due to change in reagent. BUN/CREATININE RATIO (test code = BUN/CREA) 31.7 10-20 H CALCIUM (test code = CA) 9.0 mg/dL 8.5-10.1 N [id number] 01:55:00* Test Item Value Reference Range Interpretation Comments PHOSPHORUS (test code = PHOS) 3.0 mg/dL 2.5-4.9 N [id number] 01:55:00* Test Item Value Reference Range Interpretation Comments MAGNESIUM (test code = MAG) 2.5 mg/dL 1.8-2.4 H CALCIUM [id number] 01:55:00* Test Item Value Reference Range Interpretation Comments CALCIUM IONIZED (test code = CAROL ANN) 1.25 mmol/L 1.12-1.32 N BASIC METABOLIC [id number] 01:50:00* Test Item Value Reference Range Interpretation Comments SODIUM (test code = NA) 147 mmol/L 136-145 H POTASSIUM (test code = K) 3.7 mmol/L 3.5-5.1 N CHLORIDE (test code = CL) 111.0 mmol/L 98-107 H CARBON DIOXIDE (test code = CO2) mmol/L 21-32 ANION GAP (test code = GAP) 10-20 GLUCOSE (test code = GLU) mg/dL 74-106 BLOOD UREA NITROGEN (test code = BUN) mg/dL 7-18 GLOMERULAR FILTRATION RATE (test code = GFR) mL/min >=60 CREATININE (test code = CREAT) mg/dL 0.55-1.02 BUN/CREATININE RATIO (test code = BUN/CREA) 10-20 CALCIUM (test code = CA) mg/dL 8.5-10.1 [id number] 01:50:00* Test Item Value Reference Range Interpretation Comments PHOSPHORUS (test code = PHOS) mg/dL 2.5-4.9 [id number] 01:50:00* Test Item Value Reference Range Interpretation Comments MAGNESIUM (test code = MAG) mg/dL 1.8-2.4 CALCIUM [id number] 01:50:00* Test Item Value Reference Range Interpretation Comments CALCIUM IONIZED (test code = CAROL ANN) 1.25 mmol/L 1.12-1.32 N CBC W/AUTO [id number] 01:48:00* Test Item Value Reference Range Interpretation Comments WHITE BLOOD CELL (test code = WBC) 15.9 K/mm3 4.5-12.5 H RED BLOOD CELL (test code = RBC) 3.83 mill/mm3 3.7-5.2 N HEMOGLOBIN (test code = HGB) 11.5 gram/dL 11.5-15.5 N HEMATOCRIT (test code = HCT) 34.7 % 36.0-46.0 L MEAN CELL VOLUME (test code = MCV) 90.6 fL 80-98 N MEAN CELL HGB (test code = MCH) 30.0 picogram 27.0-33.0 N MEAN CELL HGB CONCETRATION (test code = MCHC) 33.1 gram/dL 33.0-36. 0 N RED CELL DISTRIBUTION WIDTH (test code = RDW) 13.6 % 11.6-16. 2 N RED CELL DISTRIBUTION WIDTH SD (test code = RDW-SD) 44.7 fL 37 .0-51.0 N PLATELET COUNT (test code = PLT) 233 K/mm3 150-450 N MEAN PLATELET VOLUME (test code = MPV) 10.5 fL 6.7-11.0 N NEUTROPHIL % (test code = NT%) 90.0 % 39.0-69.0 H IMMATURE GRANULOCYTE % (test code = IG%) 1.2 % 0.0-5.0 N LYMPHOCYTE % (test code = LY%) 3.9 % 25.0-55.0 L MONOCYTE % (test code = MO%) 4.8 % 0.0-10.0 N EOSINOPHIL % (test code = EO%) 0.0 % 0.0-5.0 N BASOPHIL % (test code = BA%) 0.1 % 0.0-1.0 N NUCLEATED RBC % (test code = NRBC%) 0.0 % 0-0 N NEUTROPHIL # (test code = NT#) 14.30 K/mm3 1.8-7.7 H IMMATURE GRANULOCYTE # (test code = IG#) 0.19 x10 3/uL 0-0.03 H LYMPHOCYTE # (test code = LY#) 0.62 K/mm3 1.0-5.0 L MONOCYTE # (test code = MO#) 0.76 K/mm3 0-0.8 N EOSINOPHIL # (test code = EO#) 0.00 K/mm3 0.0-0.5 N BASOPHIL # (test code = BA#) 0.01 K/mm3 0.0-0.2 N NUCLEATED RBC # (test code = NRBC#) 0.00 K/mm3 0.0-0.1 N CBC W/AUTO [id number] 01:47:00* Test Item Value Reference Range Interpretation Comments WHITE BLOOD CELL (test code = WBC) K/mm3 4.5-12.5 RED BLOOD CELL (test code = RBC) mill/mm3 3.7-5.2 HEMOGLOBIN (test code = HGB) 11.5 gram/dL 11.5-15.5 N HEMATOCRIT (test code = HCT) % 36.0-46.0 MEAN CELL VOLUME (test code = MCV) fL 80-98 MEAN CELL HGB (test code = MCH) picogram 27.0-33.0 MEAN CELL HGB CONCETRATION (test code = MCHC) gram/dL 33.0-36. 0 RED CELL DISTRIBUTION WIDTH (test code = RDW) % 11.6-16. 2 RED CELL DISTRIBUTION WIDTH SD (test code = RDW-SD) fL 37 .0-51.0 PLATELET COUNT (test code = PLT) K/mm3 150-450 MEAN PLATELET VOLUME (test code = MPV) fL 6.7-11.0 NEUTROPHIL % (test code = NT%) % 39.0-69.0 IMMATURE GRANULOCYTE % (test code = IG%) % 0.0-5.0 LYMPHOCYTE % (test code = LY%) % 25.0-55.0 MONOCYTE % (test code = MO%) % 0.0-10.0 EOSINOPHIL % (test code = EO%) % 0.0-5.0 BASOPHIL % (test code = BA%) % 0.0-1.0 NEUTROPHIL # (test code = NT#) K/mm3 1.8-7.7 LYMPHOCYTE # (test code = LY#) K/mm3 1.0-5.0 MONOCYTE # (test code = MO#) K/mm3 0-0.8 EOSINOPHIL # (test code = EO#) K/mm3 0.0-0.5 BASOPHIL # (test code = BA#) K/mm3 0.0-0.2 BASIC METABOLIC [id number] 01:45:00* Test Item Value Reference Range Interpretation Comments SODIUM (test code = NA) mmol/L 136-145 POTASSIUM (test code = K) mmol/L 3.5-5.1 CHLORIDE (test code = CL) mmol/L 98-107 CARBON DIOXIDE (test code = CO2) mmol/L 21-32 ANION GAP (test code = GAP) 10-20 GLUCOSE (test code = GLU) mg/dL 74-106 BLOOD UREA NITROGEN (test code = BUN) mg/dL 7-18 GLOMERULAR FILTRATION RATE (test code = GFR) mL/min >=60 CREATININE (test code = CREAT) mg/dL 0.55-1.02 BUN/CREATININE RATIO (test code = BUN/CREA) 10-20 CALCIUM (test code = CA) mg/dL 8.5-10.1 [id number] 01:45:00* Test Item Value Reference Range Interpretation Comments PHOSPHORUS (test code = PHOS) mg/dL 2.5-4.9 [id number] 01:45:00* Test Item Value Reference Range Interpretation Comments MAGNESIUM (test code = MAG) mg/dL 1.8-2.4 CALCIUM [id number] 01:45:00* Test Item Value Reference Range Interpretation Comments CALCIUM IONIZED (test code = CAROL ANN) 1.25 mmol/L 1.12-1.32 N [id number] 00:18:00* Test Item Value Reference Range Interpretation Comments GLUBED (test code = GLUBED) 223 mg/dL 74-106 H Performed by certified glove machine operator at [facility] [id number] 17:22:00* Test Item Value Reference Range Interpretation Comments GLUBED (test code = GLUBED) 302 mg/dL 74-106 H Performed by certified glove machine operator at [facility] [id number] 15:52:00* Test Item Value Reference Range Interpretation Comments TROPONIN-I (test code = TROPI) 0.086 ng/mL 0-0.045 HH Results called to [id number] by V.LAB.GA 08/16/19 1548Critical results verified and read back by Nurse? Y [id number] 12:19:00* Test Item Value Reference Range Interpretation Comments GLUBED (test code = GLUBED) 251 mg/dL 74-106 H Performed by certified glove machine operator at [facility] - XR CHEST 1 [id number] 08:25:00 FAX: Chapito Kline [phone] [place]: B St: ADM FAX: Ruel Hicks [phone] Name: TARA RO [facility] : 1940 Age/S: 79/F [address] [facility] Unit #: [id number] Loc: [address] [place] [address] Phys: Chapito Kline Acct: [id number] Dis Date: Status: ADM IN PHONE #: [phone] Exam Date: 08/16/2019 9865 FAX #: [phone] Reason: updated pulm view EXAMS: CPT CODE: [id number] XR CHEST 1 V 05826 CLINICAL HISTORY: updated pulm view TECHNIQUE: AP chest x-ray COMPARISON: Previous day. IMPRESSION: Low lung volumes with bibasilar subsegmental atelectasis. No airspace consolidation or pleural effusion. Cardiomegaly. Thoracic aortic vascular calcification. NG tube and right central venous catheter has been removed. LOCATION: LP at 0825 Reported and signed by: Khadijah Daniel D.O. CC: Chapito Kline; Ruel Hicks MD Technologist: Omkar Mcclure RT(R); BRANDON BURTON RT(R) Trnscrd Date/Time/By: 08/16/2019 (0825) : By: [email or web address] Orig Print D/T: S: 08/16/2019 (2828) PAGE 1 Signed Report - XR CHEST 1 [id number] 08:25:00 FAX: Chapito Kline [phone] [place]: B St: ADM FAX: Ruel Hicks [phone] Name: TARA RO [facility] : 1940 Age/S: 79/F [address] Unit #: [id number] Loc: [address] [place] [address] Phys: Chapito Kline Acct: [id number] Dis Date: Status: ADM IN PHONE #: [phone] Exam Date: 08/16/2019 4019 FAX #: [phone] Reason: updated pulm view EXAMS: CPT CODE: [id number] XR CHEST 1 V 32080 CLINICAL HISTORY: updated pulm view TECHNIQUE: AP chest x-ray COMPARISON: Previous day. IMPRESSION: Low lung volumes with bibasilar subsegmental atelectasis. No a irspace consolidation or pleural effusion. Cardiomegaly. Thoracic aortic vascular calcification. NG tube and right central venous catheter has been removed. LOCATION: LP at 0825 Reported and signed by: Khadijah Daniel D.O. CC: Chapito Kline; Ruel Hicks MD Technologist: Omkar Mcclure RT(R); BRANDON BURTON RT(R) Trnkyrd Date/Time/By: 08/16/2019 (0825) : By: [email or web address] Orig Print D/T: S: 08/16/2019 (8708) PAGE 1 Signed Report - CT HEAD/BRAIN W/O [id number] 07:26:00 Name: TARA RO [facility] : 1940 Age/S: 79 / F [address] Unit #: [id number] Loc: [place] [address] Phys: J Luis Berg MD Acct: [id number] Dis Date: Status: ADM IN PHONE #: [phone] Exam Date: 08/16/2019 0540 FAX #: [phone] Reason: f/u hematoma EXAMS: CPT CODE: [id number] CT HEAD/BRAIN W/O CONT 17037 HISTORY: f/u hematoma TECHNIQUE: Noncontrast 2.[address] of the head. Examination acquired within 24 hours of arrival. Automated exposure control for dose reduction; DLP: 1726 mGy-cm. COMPARISON: 08/14/19 FINDINGS: Status post left pterional craniotomy for evacuation of left frontal subdural hematoma. Improved left pneumocephalus with decreased mass effect upon the anterior left frontal lobe. Left subdural drain. Left scalp postsurgical changes and skin magdy. Stable bifrontal intraparenchymal and subarachnoid hemorrhage. Stable left temporal int raparenchymal and subarachnoid hemorrhage. Stable bilateral frontal convex ity subarachnoid hemorrhage. Stable small subdural hemorrhage along the fa lx. Stable right cerebellar intraparenchymal hematoma. No midline shift or herniation. No CT evidence of acute infarct. No intracranial mass. Slight increased intraventricular hemorrhage within the bilateral ventri cular trigones; no hydrocephalus. Atherosclerotic vascular calcification o f the carotid siphons. Bilateral lens implants. Multifocal paranasal sinus disease. Nondisplaced occipital bone fracture. IM PRESSION: Status post left pterional craniotomy for evacuation of left frontal subdural hematoma. Improved left pneumocephalus with de creased mass effect upon the anterior left frontal lobe. Stable multifoc al intraparenchymal and extra-axial hemorrhage. LOCATI ON: LP at 0726 Reported and signed by: Khadijah Daniel D.O. PAGE 1 Signed Report (CONTINUED) Name: TARA RO [facility] : 1940 Age/S: 79 / F [address] Unit #: [id number] Loc: [place] [address] Phys: J Luis Berg MD Acct: [id number] Dis Date: Status: ADM IN PHONE #: [phone] Exam Date: 08/16/2019 0540 FAX #: [phone] Reason: f/u hematoma EXAMS: CPT CODE: [id number] CT HEAD/BRAIN W/O CONT 43666 <Continued> CC: Ruel Hicks MD; J Luis Berg MD Technologist:Ghanshyam Benitez RT(R) CTDI: DLP: Trnscb Date/Time: 08/16/2019 (07) t.[email or web address].[email or web address] Orig Print D/T: S: 08/16/2019 (0798) PAGE 2 Signed Report - CT HEAD/BRAIN W/O [id number] 07:26:00 Name: TARA RO [facility] : 1940 Age/S: 79 / F [address] [facility] Unit #: [id number] Loc: [place] [address] Phys: Stephanie Berg MD Acct: [id number] Di s Date: Status: ADM IN PHONE #: Exam Date: 08/16/2019 0540 FAX #: Reason: f/u hematoma EXAMS: CPT CODE: [id number] CT HEAD/BRAIN W/O CONT 80229 HISTORY: f/u hematoma TECHNIQUE: Noncontrast 2.[address] of the head. Examination acquired within 24 hours of arrival. Automated exposure control for dose reduction; DLP: 1726 mGy-cm. COMPARISON: 08/14/19 F INDINGS: Status post left pterional craniotomy for evacuation of l eft frontal subdural hematoma. Improved left pneumocephalus with decreased mass effect upon the anterior left frontal lobe. Left subdural drain. Left scalp postsurgical changes and skin magdy. Stable bifron trena intraparenchymal and subarachnoid hemorrhage. Stable left temporal int raparenchymal and subarachnoid hemorrhage. Stable bilateral frontal convex ity subarachnoid hemorrhage. Stable small subdural hemorrhage along the fa lx. Stable right cerebellar intraparenchymal hematoma. No midline shift or herniation. No CT evidence of acute infarct. No intracranial mass. Slight increased intraventricular hemorrhage within the bilateral ventri cular trigones; no hydrocephalus. Atherosclerotic vascular calcification o f the carotid siphons. Bilateral lens implants. Multifocal paranasal sinus disease. Nondisplaced occipital bone fracture. IM PRESSION: Status post left pterional craniotomy for evacuation of left frontal subdural hematoma. Improved left pneumocephalus with de creased mass effect upon the anterior left frontal lobe. Stable multifoc al intraparenchymal and extra-axial hemorrhage. LOCATI ON: LP at 0726 Reported and signed by: Khadijah Daniel D.O. PAGE 1 Signed Report (CONTINUED) Name: TARA RO [facility] : 1940 Age/S: 79 / F [address] [facility] Unit #: [id number] Loc: [place] [address] Phys: J Luis Berg MD Acct: [id number] Dis Date: Status: ADM IN PHONE #: [phone] Exam Date: 08/16/2019539 FAX #: [phone] Reason: f/u hematoma EXAMS: CPT CODE: [id number] CT HEAD/BRAIN W/O CONT 71631 <Continued> CC: Ruel Hicks MD; J Luis Berg MD Technologist:Ghanshyam Benitez RT(R) CTDI: DLP: Trnscb Date/Time: 08/16/2019 (725) t.[email or web address] Orig Print D/T: S: 08/16/2019 (0729) PAGE 2 Signed Report [id number] 06:01:00* Test Item Value Reference Range Interpretation Comments GLUBED (test code = GLUBED) 207 mg/dL 74-106 H Performed by certified glove machine operator at [facility] BASIC METABOLIC [id number] 05:12:00* Test Item Value Reference Range Interpretation Comments SODIUM (test code = NA) 149 mmol/L 136-145 H POTASSIUM (test code = K) 3.5 mmol/L 3.5-5.1 N CHLORIDE (test code = CL) 113.0 mmol/L 98-107 H CARBON DIOXIDE (test code = CO2) 28.0 mmol/L 21-32 N ANION GAP (test code = GAP) 11.5 10-20 N GLUCOSE (test code = GLU) 202 mg/dL 74-106 H BLOOD UREA NITROGEN (test code = BUN) 17 mg/dL 7-18 N GLOMERULAR FILTRATION RATE (test code = GFR) > 60 mL/min >=60 Estimated GFR by using Modified MDRD formula.Chronic kidney disease is defined as either kidney damageor GFR <60 mL/min/1.73 m2 for >3 months. CREATININE (test code = CREAT) 0.60 mg/dL 0.55-1.02 N Note change in reference range due to change in reagent. BUN/CREATININE RATIO (test code = BUN/CREA) 28.3 10-20 H CALCIUM (test code = CA) 8.8 mg/dL 8.5-10.1 N [id number] 05:12:00* Test Item Value Reference Range Interpretation Comments PHOSPHORUS (test code = PHOS) 2.7 mg/dL 2.5-4.9 N [id number] 05:12:00* Test Item Value Reference Range Interpretation Comments MAGNESIUM (test code = MAG) 2.7 mg/dL 1.8-2.4 H CALCIUM [id number] 05:12:00* Test Item Value Reference Range Interpretation Comments CALCIUM IONIZED (test code = CAROL ANN) 1.29 mmol/L 1.12-1.32 N BASIC METABOLIC [id number] 05:01:00* Test Item Value Reference Range Interpretation Comments SODIUM (test code = NA) 149 mmol/L 136-145 H POTASSIUM (test code = K) 3.5 mmol/L 3.5-5.1 N CHLORIDE (test code = CL) 113.0 mmol/L 98-107 H CARBON DIOXIDE (test code = CO2) 28.0 mmol/L 21-32 N ANION GAP (test code = GAP) 11.5 10-20 N GLUCOSE (test code = GLU) 202 mg/dL 74-106 H BLOOD UREA NITROGEN (test code = BUN) 17 mg/dL 7-18 N GLOMERULAR FILTRATION RATE (test code = GFR) > 60 mL/min >=60 Estimated GFR by using Modified MDRD formula.Chronic kidney disease is defined as either kidney damageor GFR <60 mL/min/1.73 m2 for >3 months. CREATININE (test code = CREAT) 0.60 mg/dL 0.55-1.02 N Note change in reference range due to change in reagent. BUN/CREATININE RATIO (test code = BUN/CREA) 28.3 10-20 H CALCIUM (test code = CA) 8.8 mg/dL 8.5-10.1 N [id number] 05:01:00* Test Item Value Reference Range Interpretation Comments PHOSPHORUS (test code = PHOS) 2.7 mg/dL 2.5-4.9 N [id number] 05:01:00* Test Item Value Reference Range Interpretation Comments MAGNESIUM (test code = MAG) 2.7 mg/dL 1.8-2.4 H CALCIUM [id number] 05:01:00* Test Item Value Reference Range Interpretation Comments CALCIUM IONIZED (test code = CAROL ANN) mmol/L 1.12-1.32 CBC W/MANUAL [id number] 04:58:00* Test Item Value Reference Range Interpretation Comments WHITE BLOOD CELL (test code = WBC) 22.2 K/mm3 4.5-12.5 H RED BLOOD CELL (test code = RBC) 3.30 mill/mm3 3.7-5.2 L HEMOGLOBIN (test code = HGB) 10.2 gram/dL 11.5-15.5 L HEMATOCRIT (test code = HCT) 29.8 % 36.0-46.0 L MEAN CELL VOLUME (test code = MCV) 90.3 fL 80-98 N MEAN CELL HGB (test code = MCH) 30.9 picogram 27.0-33.0 N MEAN CELL HGB CONCETRATION (test code = MCHC) 34.2 gram/dL 33.0-36. 0 N RED CELL DISTRIBUTION WIDTH (test code = RDW) 13.6 % 11.6-16. 2 N RED CELL DISTRIBUTION WIDTH SD (test code = RDW-SD) 44.2 fL 37 .0-51.0 N PLATELET COUNT (test code = PLT) 186 K/mm3 150-450 N MEAN PLATELET VOLUME (test code = MPV) 10.7 fL 6.7-11.0 N NEUTROPHIL % (test code = NT%) 91.1 % 39.0-69.0 H IMMATURE GRANULOCYTE % (test code = IG%) 0.9 % 0.0-5.0 N LYMPHOCYTE % (test code = LY%) 3.0 % 25.0-55.0 L MONOCYTE % (test code = MO%) 4.9 % 0.0-10.0 N EOSINOPHIL % (test code = EO%) 0.0 % 0.0-5.0 N BASOPHIL % (test code = BA%) 0.1 % 0.0-1.0 N NUCLEATED RBC % (test code = NRBC%) 0.0 % 0-0 N NEUTROPHIL # (test code = NT#) 20.18 K/mm3 1.8-7.7 H IMMATURE GRANULOCYTE # (test code = IG#) 0.21 x10 3/uL 0-0.03 H LYMPHOCYTE # (test code = LY#) 0.66 K/mm3 1.0-5.0 L MONOCYTE # (test code = MO#) 1.09 K/mm3 0-0.8 H EOSINOPHIL # (test code = EO#) 0.01 K/mm3 0.0-0.5 N BASOPHIL # (test code = BA#) 0.02 K/mm3 0.0-0.2 N NUCLEATED RBC # (test code = NRBC#) 0.00 K/mm3 0.0-0.1 N MANUAL DIFF REQUIRED (test code = MDIFF) DIFF NEEDED STAIN ACCEPTABILITY (test code = STN ACCEPTABLE) STAIN ACCEPTABLE TOTAL CELLS COUNTED (test code = TCC) 115 #CELLS SEGMENTED NEUTROPHILS (test code = SEG) 93.9 % 39-69 H BAND NEUTROPHIL (test code = BAND) 0 % 0-10 N LYMPHOCYTE (test code = LYMPH) 1.7 % 25-55 L REACTIVE LYMPH (test code = RELYMPH) 0 % MONOCYTE (test code = MON) 4.4 % 0-10 N EOSINOPHIL (test code = EOS) 0 % 0.0-5.0 N BASOPHIL (test code = BASO) 0 % 0-1.0 N METAMYELOCYTE (test code = META) 0 % 0-0 N MYELOCYTE (test code = MYELO) 0 % 0.0-0.0 N PROMYELOCYTE (test code = PROM) 0 % 0-0 N POLYCHROMASIA (test code = POLC) 1+ POIKILOCYTOSIS (test code = POIK) 1+ ANISOCYTOSIS (test code = ANISO) 1+ ABRBARA CELLS (test code = BARBARA) 1+ NONE OVALOCYTES (test code = OVAL) 1+ MORPHOLOGY COMMENT (test code = MOC) TEST NOT PERFORMED PLATELET ESTIMATE (test code = PLTEST) ADEQUATE PLATELET MORPHOLOGY (test code = PLTMORPH) NORMAL IMMATURE FORMS (test code = IMMAT) 0 % 0-0 N CBC W/MANUAL [id number] 04:24:00* Test Item Value Reference Range Interpretation Comments WHITE BLOOD CELL (test code = WBC) 22.2 K/mm3 4.5-12.5 H RED BLOOD CELL (test code = RBC) 3.30 mill/mm3 3.7-5.2 L HEMOGLOBIN (test code = HGB) 10.2 gram/dL 11.5-15.5 L HEMATOCRIT (test code = HCT) 29.8 % 36.0-46.0 L MEAN CELL VOLUME (test code = MCV) 90.3 fL 80-98 N MEAN CELL HGB (test code = MCH) 30.9 picogram 27.0-33.0 N MEAN CELL HGB CONCETRATION (test code = MCHC) 34.2 gram/dL 33.0-36. 0 N RED CELL DISTRIBUTION WIDTH (test code = RDW) 13.6 % 11.6-16. 2 N RED CELL DISTRIBUTION WIDTH SD (test code = RDW-SD) 44.2 fL 37 .0-51.0 N PLATELET COUNT (test code = PLT) 186 K/mm3 150-450 N MEAN PLATELET VOLUME (test code = MPV) 10.7 fL 6.7-11.0 N NEUTROPHIL % (test code = NT%) 91.1 % 39.0-69.0 H IMMATURE GRANULOCYTE % (test code = IG%) 0.9 % 0.0-5.0 N LYMPHOCYTE % (test code = LY%) 3.0 % 25.0-55.0 L MONOCYTE % (test code = MO%) 4.9 % 0.0-10.0 N EOSINOPHIL % (test code = EO%) 0.0 % 0.0-5.0 N BASOPHIL % (test code = BA%) 0.1 % 0.0-1.0 N NUCLEATED RBC % (test code = NRBC%) 0.0 % 0-0 N NEUTROPHIL # (test code = NT#) 20.18 K/mm3 1.8-7.7 H IMMATURE GRANULOCYTE # (test code = IG#) 0.21 x10 3/uL 0-0.03 H LYMPHOCYTE # (test code = LY#) 0.66 K/mm3 1.0-5.0 L MONOCYTE # (test code = MO#) 1.09 K/mm3 0-0.8 H EOSINOPHIL # (test code = EO#) 0.01 K/mm3 0.0-0.5 N BASOPHIL # (test code = BA#) 0.02 K/mm3 0.0-0.2 N NUCLEATED RBC # (test code = NRBC#) 0.00 K/mm3 0.0-0.1 N MANUAL DIFF REQUIRED (test code = MDIFF) DIFF NEEDED STAIN ACCEPTABILITY (test code = STN ACCEPTABLE) TOTAL CELLS COUNTED (test code = TCC) #CELLS SEGMENTED NEUTROPHILS (test code = SEG) % 39-69 LYMPHOCYTE (test code = LYMPH) % 25-55 MONOCYTE (test code = MON) % 0-10 MORPHOLOGY COMMENT (test code = MOC) PLATELET ESTIMATE (test code = PLTEST) PLATELET MORPHOLOGY (test code = PLTMORPH) CBC W/MANUAL [id number] 04:19:00* Test Item Value Reference Range Interpretation Comments WHITE BLOOD CELL (test code = WBC) 22.2 K/mm3 4.5-12.5 H RED BLOOD CELL (test code = RBC) 3.30 mill/mm3 3.7-5.2 L HEMOGLOBIN (test code = HGB) 10.2 gram/dL 11.5-15.5 L HEMATOCRIT (test code = HCT) 29.8 % 36.0-46.0 L MEAN CELL VOLUME (test code = MCV) 90.3 fL 80-98 N MEAN CELL HGB (test code = MCH) 30.9 picogram 27.0-33.0 N MEAN CELL HGB CONCETRATION (test code = MCHC) 34.2 gram/dL 33.0-36. 0 N RED CELL DISTRIBUTION WIDTH (test code = RDW) 13.6 % 11.6-16. 2 N RED CELL DISTRIBUTION WIDTH SD (test code = RDW-SD) 44.2 fL 37 .0-51.0 N PLATELET COUNT (test code = PLT) 186 K/mm3 150-450 N MEAN PLATELET VOLUME (test code = MPV) 10.7 fL 6.7-11.0 N NEUTROPHIL % (test code = NT%) 91.1 % 39.0-69.0 H IMMATURE GRANULOCYTE % (test code = IG%) 0.9 % 0.0-5.0 N LYMPHOCYTE % (test code = LY%) 3.0 % 25.0-55.0 L MONOCYTE % (test code = MO%) 4.9 % 0.0-10.0 N EOSINOPHIL % (test code = EO%) 0.0 % 0.0-5.0 N BASOPHIL % (test code = BA%) 0.1 % 0.0-1.0 N NUCLEATED RBC % (test code = NRBC%) 0.0 % 0-0 N NEUTROPHIL # (test code = NT#) 20.18 K/mm3 1.8-7.7 H IMMATURE GRANULOCYTE # (test code = IG#) 0.21 x10 3/uL 0-0.03 H LYMPHOCYTE # (test code = LY#) 0.66 K/mm3 1.0-5.0 L MONOCYTE # (test code = MO#) 1.09 K/mm3 0-0.8 H EOSINOPHIL # (test code = EO#) 0.01 K/mm3 0.0-0.5 N BASOPHIL # (test code = BA#) 0.02 K/mm3 0.0-0.2 N NUCLEATED RBC # (test code = NRBC#) 0.00 K/mm3 0.0-0.1 N MANUAL DIFF REQUIRED (test code = MDIFF) DIFF NEEDED STAIN ACCEPTABILITY (test code = STN ACCEPTABLE) TOTAL CELLS COUNTED (test code = TCC) #CELLS SEGMENTED NEUTROPHILS (test code = SEG) % 39-69 LYMPHOCYTE (test code = LYMPH) % 25-55 MONOCYTE (test code = MON) % 0-10 EOSINOPHIL (test code = EOS) % 0.0-5.0 CABOT RINGS (test code = CAB) MORPHOLOGY COMMENT (test code = MOC) PLATELET ESTIMATE (test code = PLTEST) PLATELET MORPHOLOGY (test code = PLTMORPH) CBC W/MANUAL [id number] 04:19:00* Test Item Value Reference Range Interpretation Comments WHITE BLOOD CELL (test code = WBC) 22.2 K/mm3 4.5-12.5 H RED BLOOD CELL (test code = RBC) 3.30 mill/mm3 3.7-5.2 L HEMOGLOBIN (test code = HGB) 10.2 gram/dL 11.5-15.5 L HEMATOCRIT (test code = HCT) 29.8 % 36.0-46.0 L MEAN CELL VOLUME (test code = MCV) 90.3 fL 80-98 N MEAN CELL HGB (test code = MCH) 30.9 picogram 27.0-33.0 N MEAN CELL HGB CONCETRATION (test code = MCHC) 34.2 gram/dL 33.0-36. 0 N RED CELL DISTRIBUTION WIDTH (test code = RDW) 13.6 % 11.6-16. 2 N RED CELL DISTRIBUTION WIDTH SD (test code = RDW-SD) 44.2 fL 37 .0-51.0 N PLATELET COUNT (test code = PLT) 186 K/mm3 150-450 N MEAN PLATELET VOLUME (test code = MPV) 10.7 fL 6.7-11.0 N NEUTROPHIL % (test code = NT%) 91.1 % 39.0-69.0 H IMMATURE GRANULOCYTE % (test code = IG%) 0.9 % 0.0-5.0 N LYMPHOCYTE % (test code = LY%) 3.0 % 25.0-55.0 L MONOCYTE % (test code = MO%) 4.9 % 0.0-10.0 N EOSINOPHIL % (test code = EO%) 0.0 % 0.0-5.0 N BASOPHIL % (test code = BA%) 0.1 % 0.0-1.0 N NUCLEATED RBC % (test code = NRBC%) 0.0 % 0-0 N NEUTROPHIL # (test code = NT#) 20.18 K/mm3 1.8-7.7 H IMMATURE GRANULOCYTE # (test code = IG#) 0.21 x10 3/uL 0-0.03 H LYMPHOCYTE # (test code = LY#) 0.66 K/mm3 1.0-5.0 L MONOCYTE # (test code = MO#) 1.09 K/mm3 0-0.8 H EOSINOPHIL # (test code = EO#) 0.01 K/mm3 0.0-0.5 N BASOPHIL # (test code = BA#) 0.02 K/mm3 0.0-0.2 N NUCLEATED RBC # (test code = NRBC#) 0.00 K/mm3 0.0-0.1 N MANUAL DIFF REQUIRED (test code = MDIFF) DIFF NEEDED STAIN ACCEPTABILITY (test code = STN ACCEPTABLE) TOTAL CELLS COUNTED (test code = TCC) #CELLS SEGMENTED NEUTROPHILS (test code = SEG) % 39-69 LYMPHOCYTE (test code = LYMPH) % 25-55 MONOCYTE (test code = MON) % 0-10 EOSINOPHIL (test code = EOS) % 0.0-5.0 CABOT RINGS (test code = CAB) MORPHOLOGY COMMENT (test code = MOC) PLATELET ESTIMATE (test code = PLTEST) PLATELET MORPHOLOGY (test code = PLTMORPH) CBC W/MANUAL [id number] 04:19:00* Test Item Value Reference Range Interpretation Comments WHITE BLOOD CELL (test code = WBC) 22.2 K/mm3 4.5-12.5 H RED BLOOD CELL (test code = RBC) 3.30 mill/mm3 3.7-5.2 L HEMOGLOBIN (test code = HGB) 10.2 gram/dL 11.5-15.5 L HEMATOCRIT (test code = HCT) 29.8 % 36.0-46.0 L MEAN CELL VOLUME (test code = MCV) 90.3 fL 80-98 N MEAN CELL HGB (test code = MCH) 30.9 picogram 27.0-33.0 N MEAN CELL HGB CONCETRATION (test code = MCHC) 34.2 gram/dL 33.0-36. 0 N RED CELL DISTRIBUTION WIDTH (test code = RDW) 13.6 % 11.6-16. 2 N RED CELL DISTRIBUTION WIDTH SD (test code = RDW-SD) 44.2 fL 37 .0-51.0 N PLATELET COUNT (test code = PLT) 186 K/mm3 150-450 N MEAN PLATELET VOLUME (test code = MPV) 10.7 fL 6.7-11.0 N NEUTROPHIL % (test code = NT%) 91.1 % 39.0-69.0 H IMMATURE GRANULOCYTE % (test code = IG%) 0.9 % 0.0-5.0 N LYMPHOCYTE % (test code = LY%) 3.0 % 25.0-55.0 L MONOCYTE % (test code = MO%) 4.9 % 0.0-10.0 N EOSINOPHIL % (test code = EO%) 0.0 % 0.0-5.0 N BASOPHIL % (test code = BA%) 0.1 % 0.0-1.0 N NUCLEATED RBC % (test code = NRBC%) 0.0 % 0-0 N NEUTROPHIL # (test code = NT#) 20.18 K/mm3 1.8-7.7 H IMMATURE GRANULOCYTE # (test code = IG#) 0.21 x10 3/uL 0-0.03 H LYMPHOCYTE # (test code = LY#) 0.66 K/mm3 1.0-5.0 L MONOCYTE # (test code = MO#) 1.09 K/mm3 0-0.8 H EOSINOPHIL # (test code = EO#) 0.01 K/mm3 0.0-0.5 N BASOPHIL # (test code = BA#) 0.02 K/mm3 0.0-0.2 N NUCLEATED RBC # (test code = NRBC#) 0.00 K/mm3 0.0-0.1 N MANUAL DIFF REQUIRED (test code = MDIFF) DIFF NEEDED STAIN ACCEPTABILITY (test code = STN ACCEPTABLE) TOTAL CELLS COUNTED (test code = TCC) #CELLS SEGMENTED NEUTROPHILS (test code = SEG) % 39-69 LYMPHOCYTE (test code = LYMPH) % 25-55 MONOCYTE (test code = MON) % 0-10 EOSINOPHIL (test code = EOS) % 0.0-5.0 MORPHOLOGY COMMENT (test code = MOC) PLATELET ESTIMATE (test code = PLTEST) PLATELET MORPHOLOGY (test code = PLTMORPH) CBC W/MANUAL [id number] 04:19:00* Test Item Value Reference Range Interpretation Comments WHITE BLOOD CELL (test code = WBC) 22.2 K/mm3 4.5-12.5 H RED BLOOD CELL (test code = RBC) 3.30 mill/mm3 3.7-5.2 L HEMOGLOBIN (test code = HGB) 10.2 gram/dL 11.5-15.5 L HEMATOCRIT (test code = HCT) 29.8 % 36.0-46.0 L MEAN CELL VOLUME (test code = MCV) 90.3 fL 80-98 N MEAN CELL HGB (test code = MCH) 30.9 picogram 27.0-33.0 N MEAN CELL HGB CONCETRATION (test code = MCHC) 34.2 gram/dL 33.0-36. 0 N RED CELL DISTRIBUTION WIDTH (test code = RDW) 13.6 % 11.6-16. 2 N RED CELL DISTRIBUTION WIDTH SD (test code = RDW-SD) 44.2 fL 37 .0-51.0 N PLATELET COUNT (test code = PLT) 186 K/mm3 150-450 N MEAN PLATELET VOLUME (test code = MPV) 10.7 fL 6.7-11.0 N NEUTROPHIL % (test code = NT%) 91.1 % 39.0-69.0 H IMMATURE GRANULOCYTE % (test code = IG%) 0.9 % 0.0-5.0 N LYMPHOCYTE % (test code = LY%) 3.0 % 25.0-55.0 L MONOCYTE % (test code = MO%) 4.9 % 0.0-10.0 N EOSINOPHIL % (test code = EO%) 0.0 % 0.0-5.0 N BASOPHIL % (test code = BA%) 0.1 % 0.0-1.0 N NUCLEATED RBC % (test code = NRBC%) 0.0 % 0-0 N NEUTROPHIL # (test code = NT#) 20.18 K/mm3 1.8-7.7 H IMMATURE GRANULOCYTE # (test code = IG#) 0.21 x10 3/uL 0-0.03 H LYMPHOCYTE # (test code = LY#) 0.66 K/mm3 1.0-5.0 L MONOCYTE # (test code = MO#) 1.09 K/mm3 0-0.8 H EOSINOPHIL # (test code = EO#) 0.01 K/mm3 0.0-0.5 N BASOPHIL # (test code = BA#) 0.02 K/mm3 0.0-0.2 N NUCLEATED RBC # (test code = NRBC#) 0.00 K/mm3 0.0-0.1 N MANUAL DIFF REQUIRED (test code = MDIFF) DIFF NEEDED STAIN ACCEPTABILITY (test code = STN ACCEPTABLE) TOTAL CELLS COUNTED (test code = TCC) #CELLS SEGMENTED NEUTROPHILS (test code = SEG) % 39-69 LYMPHOCYTE (test code = LYMPH) % 25-55 MONOCYTE (test code = MON) % 0-10 EOSINOPHIL (test code = EOS) % 0.0-5.0 CABOT RINGS (test code = CAB) MORPHOLOGY COMMENT (test code = MOC) PLATELET ESTIMATE (test code = PLTEST) PLATELET MORPHOLOGY (test code = PLTMORPH) [id number] 00:23:00* Test Item Value Reference Range Interpretation Comments GLUBED (test code = GLUBED) 255 mg/dL 74-106 H Performed by certified glove machine operator at [facility] [id number] 17:30:00* Test Item Value Reference Range Interpretation Comments GLUBED (test code = GLUBED) 344 mg/dL 74-106 H Performed by certified glove machine operator at [facility] [id number] 11:59:00* Test Item Value Reference Range Interpretation Comments GLUBED (test code = GLUBED) 318 mg/dL 74-106 H Performed by certified glove machine operator at [facility] - XR CHEST 1 [id number] 10:31:00 FAX: Ruel Hicks [phone] [place]: St: [facility] FAX: Nicol Daniel MD [phone] Name: JIATARA KAYE [facility] : 1940 Age/S: 79/F [address] [facility] Unit #: [id number] Loc: [address] [address] Phys: Nicol Daniel MD Acct: [id number] Dis Date: Status: ADM IN PHONE #: [phone] Exam Date: 08/15/2019 0959 FAX #: [phone] Reason: s/p extubation EXAMS: CPT CODE: [id number] XR CHEST 1 V 00058 REASON FOR EXAM: s/p extubation Exam Order Date: 08/15/2019 12:00 AM Ordering M.DGerardo: Nicol Daniel MD PROCEDURE: - XR CHEST 1 V COMPARISON: Chest x-ray August 05, 2019 FINDINGS: A right IJ central line has been inserted into the right atrium. Enteric suction tube is unchanged. The patient has been extubated. There is mild subsegmental atelectasis and/or consolidation in the lung bases. Lungs are otherwise clear with no pleural effusion. Cardiomediastinal silhouette appears mildly prominent however this may be due to diminished lung volumes. Degenerative changes are present in the left acromioclavicular joint and in the spine. IMPRESSION: Interval extubation. Mild subsegmental atelectasis and/or consolidation in the lung bases. Lungs are otherwise clear. Location: [facility] at 1031 Reported and signed by: Kin Feliciano MD CC: Ruel Hicks MD; Nicol Daniel MD Technologist: Emani Rodriguez RT(R); Danni Rao(R) [facility] Date/Time/By: 08/15/2019 (1031) : By: [email or web address] Orig Print D/T: S: 08/15/2019 (8524) PAGE 1 Cecilia d Report - XR CHEST 1 [id number] 10:31:00 FAX: Ruel Hicks [phone] [place]: St: [facility] FAX: Nicol Daniel MD [phone] Name: TARA RO [facility] : 1940 Age/S: 79/F [address] [facility] Unit #: [id number] Loc: [address] [address] Phys: Nicol Daniel MD Acct: [id number] Dis Date: Status: ADM IN PHONE #: [phone] Exam Date: 08/15/2019 0959 FAX #: [phone] Reason: s/p extubation EXAMS: CPT CODE: [id number] XR CHEST 1 V 46211 REASON FOR EXAM: s/p extubation Exam Order Date: 08/15/2019 12:00 AM Ordering M.DGerardo: Nicol Daniel MD PROCEDURE: - XR CHEST 1 V COMPARISON: Chest x-ray August 05, 2019 FINDINGS: A right IJ central line has been inserted into the right atrium. Enteric suction tube is unchanged. The patient has been extubated. There is mild subsegmental atelectasis and/or co nsolidation in the lung bases. Lungs are otherwise clear with no pleural e ffusion. Cardiomediastinal silhouette appears mildly prominent how ever this may be due to diminished lung volumes. Degenerativ e changes are present in the left acromioclavicular joint and in the spine . IMPRESSION: Interval extubation. Mild subsegme ntal atelectasis and/or consolidation in the lung bases. Lungs are other purdy clear. Location: [facility] at 1031 Reported and signed by: Kin Feliciano MD CC: Ruel Hicks MD; Nicol Daniel MD Technologist: Emani JONES(R); Danni Rao(R) Tr [facility] Date/Time/By: 08/15/2019 (1031) : By: [email or web address] [facility] Print D/T: S: 08/15/2019 (1037) PAGE 1 Cecilia d Report [id number] 05:35:00* Test Item Value Reference Range Interpretation Comments GLUBED (test code = GLUBED) 262 mg/dL 74-106 H Performed by certified glove machine operator at [facility] BASIC METABOLIC [id number] 05:30:00* Test Item Value Reference Range Interpretation Comments SODIUM (test code = NA) 142 mmol/L 136-145 N POTASSIUM (test code = K) 3.5 mmol/L 3.5-5.1 N CHLORIDE (test code = CL) 110.0 mmol/L 98-107 H CARBON DIOXIDE (test code = CO2) 27.0 mmol/L 21-32 N ANION GAP (test code = GAP) 8.5 10-20 L GLUCOSE (test code = GLU) 280 mg/dL 74-106 H BLOOD UREA NITROGEN (test code = BUN) 14 mg/dL 7-18 N GLOMERULAR FILTRATION RATE (test code = GFR) > 60 mL/min >=60 Estimated GFR by using Modified MDRD formula.Chronic kidney disease is defined as either kidney damageor GFR <60 mL/min/1.73 m2 for >3 months. CREATININE (test code = CREAT) 0.60 mg/dL 0.55-1.02 N Note change in reference range due to change in reagent. BUN/CREATININE RATIO (test code = BUN/CREA) 23.3 10-20 H CALCIUM (test code = CA) 8.0 mg/dL 8.5-10.1 L [id number] 05:30:00* Test Item Value Reference Range Interpretation Comments PHOSPHORUS (test code = PHOS) 2.6 mg/dL 2.5-4.9 N [id number] 05:30:00* Test Item Value Reference Range Interpretation Comments MAGNESIUM (test code = MAG) 2.5 mg/dL 1.8-2.4 H CALCIUM [id number] 05:30:00* Test Item Value Reference Range Interpretation Comments CALCIUM IONIZED (test code = CAROL ANN) 1.23 mmol/L 1.12-1.32 N BASIC METABOLIC [id number] 04:35:00* Test Item Value Reference Range Interpretation Comments SODIUM (test code = NA) 142 mmol/L 136-145 N POTASSIUM (test code = K) 3.5 mmol/L 3.5-5.1 N CHLORIDE (test code = CL) 110.0 mmol/L 98-107 H CARBON DIOXIDE (test code = CO2) 27.0 mmol/L 21-32 N ANION GAP (test code = GAP) 8.5 10-20 L GLUCOSE (test code = GLU) 280 mg/dL 74-106 H BLOOD UREA NITROGEN (test code = BUN) 14 mg/dL 7-18 N GLOMERULAR FILTRATION RATE (test code = GFR) > 60 mL/min >=60 Estimated GFR by using Modified MDRD formula.Chronic kidney disease is defined as either kidney damageor GFR <60 mL/min/1.73 m2 for >3 months. CREATININE (test code = CREAT) 0.60 mg/dL 0.55-1.02 N Note change in reference range due to change in reagent. BUN/CREATININE RATIO (test code = BUN/CREA) 23.3 10-20 H CALCIUM (test code = CA) 8.0 mg/dL 8.5-10.1 L [id number] 04:35:00* Test Item Value Reference Range Interpretation Comments PHOSPHORUS (test code = PHOS) 2.6 mg/dL 2.5-4.9 N [id number] 04:35:00* Test Item Value Reference Range Interpretation Comments MAGNESIUM (test code = MAG) 2.5 mg/dL 1.8-2.4 H CALCIUM [id number] 04:35:00* Test Item Value Reference Range Interpretation Comments CALCIUM IONIZED (test code = CAROL ANN) mmol/L 1.12-1.32 BASIC METABOLIC [id number] 04:32:00* Test Item Value Reference Range Interpretation Comments SODIUM (test code = NA) 142 mmol/L 136-145 N POTASSIUM (test code = K) 3.5 mmol/L 3.5-5.1 N CHLORIDE (test code = CL) 110.0 mmol/L 98-107 H CARBON DIOXIDE (test code = CO2) mmol/L 21-32 ANION GAP (test code = GAP) 10-20 GLUCOSE (test code = GLU) mg/dL 74-106 BLOOD UREA NITROGEN (test code = BUN) mg/dL 7-18 GLOMERULAR FILTRATION RATE (test code = GFR) mL/min >=60 CREATININE (test code = CREAT) mg/dL 0.55-1.02 BUN/CREATININE RATIO (test code = BUN/CREA) 10-20 CALCIUM (test code = CA) mg/dL 8.5-10.1 [id number] 04:32:00* Test Item Value Reference Range Interpretation Comments PHOSPHORUS (test code = PHOS) mg/dL 2.5-4.9 [id number] 04:32:00* Test Item Value Reference Range Interpretation Comments MAGNESIUM (test code = MAG) mg/dL 1.8-2.4 CALCIUM [id number] 04:32:00* Test Item Value Reference Range Interpretation Comments CALCIUM IONIZED (test code = CAROL ANN) mmol/L 1.12-1.32 CBC W/AUTO [id number] 03:57:00* Test Item Value Reference Range Interpretation Comments WHITE BLOOD CELL (test code = WBC) 19.8 K/mm3 4.5-12.5 H RED BLOOD CELL (test code = RBC) 3.08 mill/mm3 3.7-5.2 L HEMOGLOBIN (test code = HGB) 9.3 gram/dL 11.5-15.5 L HEMATOCRIT (test code = HCT) 27.5 % 36.0-46.0 L MEAN CELL VOLUME (test code = MCV) 89.3 fL 80-98 N MEAN CELL HGB (test code = MCH) 30.2 picogram 27.0-33.0 N MEAN CELL HGB CONCETRATION (test code = MCHC) 33.8 gram/dL 33.0-36. 0 N RED CELL DISTRIBUTION WIDTH (test code = RDW) 13.0 % 11.6-16. 2 N RED CELL DISTRIBUTION WIDTH SD (test code = RDW-SD) 42.3 fL 37 .0-51.0 N PLATELET COUNT (test code = PLT) 201 K/mm3 150-450 N MEAN PLATELET VOLUME (test code = MPV) 9.9 fL 6.7-11.0 N NEUTROPHIL % (test code = NT%) 92.7 % 39.0-69.0 H IMMATURE GRANULOCYTE % (test code = IG%) 1.4 % 0.0-5.0 N LYMPHOCYTE % (test code = LY%) 2.5 % 25.0-55.0 L MONOCYTE % (test code = MO%) 3.3 % 0.0-10.0 N EOSINOPHIL % (test code = EO%) 0.0 % 0.0-5.0 N BASOPHIL % (test code = BA%) 0.1 % 0.0-1.0 N NUCLEATED RBC % (test code = NRBC%) 0.0 % 0-0 N NEUTROPHIL # (test code = NT#) 18.32 K/mm3 1.8-7.7 H IMMATURE GRANULOCYTE # (test code = IG#) 0.27 x10 3/uL 0-0.03 H LYMPHOCYTE # (test code = LY#) 0.49 K/mm3 1.0-5.0 L MONOCYTE # (test code = MO#) 0.66 K/mm3 0-0.8 N EOSINOPHIL # (test code = EO#) 0.00 K/mm3 0.0-0.5 N BASOPHIL # (test code = BA#) 0.02 K/mm3 0.0-0.2 N NUCLEATED RBC # (test code = NRBC#) 0.00 K/mm3 0.0-0.1 N MANUAL DIFF REQUIRED (test code = MDIFF) NO [id number] 00:53:00* Test Item Value Reference Range Interpretation Comments GLUBED (test code = GLUBED) 270 mg/dL 74-106 H Performed by certified glove machine operator at [facility] [id number] 17:45:00* Test Item Value Reference Range Interpretation Comments GLUBED (test code = GLUBED) 236 mg/dL 74-106 H Performed by certified glove machine operator at [facility] [id number] 13:41:00* Test Item Value Reference Range Interpretation Comments GLUBED (test code = GLUBED) 196 mg/dL 74-106 H Performed by certified glove machine operator at [facility] - CT HEAD/BRAIN W/O [id number] 06:37:00 Name: TARA RO [facility] : 1940 Age/S: 79 / F [address] [facility] Unit #: [id number] Loc: [place] [address] Phys: J Luis Berg MD Acct: [id number] Dis Date: Status: ADM IN PHONE #: [phone] Exam Date: 08/14/201918 FAX #: [phone] Reason: Post-op EXAMS: CPT CODE: [id number] CT HEAD/BRAIN W/O CONT 46153 HISTORY: Intracranial hemorrhage, postop TECHNIQUE: Noncontrast 2.[address] of the head. Examination acquired within 24 hours of arrival. Automated exposure control for dose reduction; DLP: 928 mGy-cm. COMPARISON: Previous day, 5 hours earlier FINDINGS: Status post left pterional craniotomy for evacuation of left frontal subdural hematoma. Increased mild pneumocephalus with mass effect upon the anterior left frontal lobe. Left subdural drain. Left scalp postsurgical changes and skin magdy. Stable bifrontal intraparenchymal and subarachnoid hemorrhage. Stable left temporal intraparenchymal and subarachnoid hemorrhage. Stable posterolateral right frontal convexity subarachnoid hemorrhage. Stable small subdural hemorrhage along the falx. Stable right cerebellar intr aparenchymal hematoma. No midline shift or herniation. No CT evide nce of acute infarct. No intracranial mass. Stable intraventricular hemorr rex within the bilateral ventricular trigones; no hydrocephalus. Atherosc lerotic vascular calcification of the carotid siphons. Bilateral lens impl ants. Multifocal paranasal sinus disease. IMPRESSI ON: Status post left pterional craniotomy for evacuation of le ft frontal subdural hematoma. Increased mild pneumocephalus with mass ef fect upon the anterior left frontal lobe. Stable multifocal intraparench ymal and extra-axial hemorrhage. LOCATION: [facility] at 0637 Reported and signed by: Khadijah Daniel D.O. PAGE 1 Signed Report (CONTINUED) Name: TARA RO [facility] : 1939 Age/S: 79 / F [address] Unit #: [id number] Loc: [place] [address] Phys: J Luis Berg MD Acct: [id number] Dis Date: Status: ADM IN PHONE #: [phone] Exam Date: 08/14/2019517 FAX #: [phone] Reason: Post-op EXAMS: CPT CODE: [id number] CT HEAD/BRAIN W/O CONT [id number] <Continued> CC: Ruel Hicks MD; J Luis Berg MD Technologist:MAUREEN SHAFFER CTDI: DLP: Trnscb Date/Time: 08/14/2019 (0637) [email or web address] Orig Print D/T: S: 08/14/2019 (0858) PAGE 2 Signed Report - CT HEAD/BRAIN W/O [id number] 06:37:00 Name: TARA RO [facility] : 1940 Age/S: 79 / F [address] Unit #: [id number] Loc: [place] [address] Phys: J Luis Berg MD Acct: [id number] Dis Date: Status: ADM IN PHONE #: [phone] Exam Date: 08/14/2019517 FAX #: [phone] Reason: Post-op EXAMS: CPT CODE: [id number] CT HEAD/BRAIN W/O CONT 58428 HISTORY: Intracranial hemorrhage, postop TECHNIQUE: Noncontrast 2.[address] of the head. Examination acquired within 24 hours of arrival. Automated exposure control for dose reduction; DLP: 928 mGy-cm. COMPARISON: Previous day, 5 hours earlier FINDINGS: Status post left pterional craniotomy for evacuation of left frontal subdural hematoma. Increased mild pneumocephalus with mass effect upon the anterior left frontal lobe. Left subdural drain. Left scalp postsurgical changes and skin magdy. Stable bifrontal intraparenchymal and subarachnoid hemorrhage. Stable left temporal intraparenchymal and subarachnoid hemorrhage. Stable posterolateral right frontal convexity subarachnoid hemorrhage. Stable small subdural hemorrhage along the falx. Stable right cerebellar intr aparenchymal hematoma. No midline shift or herniation. No CT evide nce of acute infarct. No intracranial mass. Stable intraventricular hemorr rex within the bilateral ventricular trigones; no hydrocephalus. Atherosc lerotic vascular calcification of the carotid siphons. Bilateral lens impl ants. Multifocal paranasal sinus disease. IMPRESSI ON: Status post left pterional craniotomy for evacuation of le ft frontal subdural hematoma. Increased mild pneumocephalus with mass ef fect upon the anterior left frontal lobe. Stable multifocal intraparench ymal and extra-axial hemorrhage. LOCATION: [facility] at 0637 Reported and signed by: Khadijah Daniel D.O. PAGE 1 Signed Report (CONTINUED) Name: TARA RO [facility] : 1939 Age/S: 79 / F [address] [facility] Unit #: [id number] Loc: [place] [address] Phys: J Luis Berg MD Acct: [id number] Dis Date: Status: ADM IN PHONE #: [phone] Exam Date: 08/14/2019 0518 FAX #: [phone] Reason: Post-op EXAMS: CPT CODE: [id number] CT HEAD/BRAIN W/O CONT 54374 <Continued> CC: Ruel Hicks MD; J Luis Berg MD Technologist:MAUREEN PATTERSON CT CTDI: DLP: Trnscb Date/Time: 08/14/2019 (0637) [email or web address] Orig Print D/T: S: 08/14/2019 (2212) PAGE 2 Signed Report [id number] 06:30:00* Test Item Value Reference Range Interpretation Comments GLUBED (test code = GLUBED) 210 mg/dL 74-106 H Performed by certified glove machine operator at [facility] BASIC METABOLIC [id number] 05:49:00* Test Item Value Reference Range Interpretation Comments SODIUM (test code = NA) 138 mmol/L 136-145 POTASSIUM (test code = K) 3.4 mmol/L 3.5-5.1 L CHLORIDE (test code = CL) 102.9 mmol/L 98-107 N CARBON DIOXIDE (test code = CO2) 24.0 mmol/L 21-32 N ANION GAP (test code = GAP) 14.5 10-20 N GLUCOSE (test code = GLU) 232 mg/dL 74-106 H BLOOD UREA NITROGEN (test code = BUN) 8 mg/dL 7-18 N GLOMERULAR FILTRATION RATE (test code = GFR) > 60 mL/min >=60 Estimated GFR by using Modified MDRD formula.Chronic kidney disease is defined as either kidney damageor GFR <60 mL/min/1.73 m2 for >3 months. CREATININE (test code = CREAT) 0.77 mg/dL 0.55-1.02 N Note change in reference range due to change in reagent. BUN/CREATININE RATIO (test code = BUN/CREA) 10.4 10-20 N CALCIUM (test code = CA) 8.1 mg/dL 8.5-10.1 L [id number] 05:49:00* Test Item Value Reference Range Interpretation Comments PHOSPHORUS (test code = PHOS) 2.2 mg/dL 2.5-4.9 L [id number] 05:49:00* Test Item Value Reference Range Interpretation Comments MAGNESIUM (test code = MAG) 1.7 mg/dL 1.8-2.4 L CALCIUM [id number] 05:49:00* Test Item Value Reference Range Interpretation Comments CALCIUM IONIZED (test code = CAROL ANN) 0.91 mmol/L 1.12-1.32 L BASIC METABOLIC [id number] 05:29:00* Test Item Value Reference Range Interpretation Comments SODIUM (test code = NA) mmol/L 136-145 POTASSIUM (test code = K) mmol/L 3.5-5.1 CHLORIDE (test code = CL) mmol/L 98-107 CARBON DIOXIDE (test code = CO2) mmol/L 21-32 ANION GAP (test code = GAP) 10-20 GLUCOSE (test code = GLU) mg/dL 74-106 BLOOD UREA NITROGEN (test code = BUN) mg/dL 7-18 GLOMERULAR FILTRATION RATE (test code = GFR) mL/min >=60 CREATININE (test code = CREAT) mg/dL 0.55-1.02 BUN/CREATININE RATIO (test code = BUN/CREA) 10-20 CALCIUM (test code = CA) mg/dL 8.5-10.1 [id number] 05:29:00* Test Item Value Reference Range Interpretation Comments PHOSPHORUS (test code = PHOS) mg/dL 2.5-4.9 [id number] 05:29:00* Test Item Value Reference Range Interpretation Comments MAGNESIUM (test code = MAG) mg/dL 1.8-2.4 CALCIUM [id number] 05:29:00* Test Item Value Reference Range Interpretation Comments CALCIUM IONIZED (test code = CAROL ANN) 0.91 mmol/L 1.12-1.32 L ARTERIAL BLOOD [id number] 05:06:00* Test Item Value Reference Range Interpretation Comments ARTERIAL BLOOD GAS PH (test code = PHA) 7.44 7.35-7.45 N ARTERIAL BLOOD GAS PCO2 (test code = PCO2A) 34.2 mm Hg 35-45 L ARTERIAL BLOOD GAS PO2 (test code = PO2A) 210.6 mmHg 80-100 H BICARBONATE TOTAL HCO3 (test code = HCO3) 22.7 mmol/L 23.0-27.0 L BASE EXCESS (test code = ALEE) -1.0 mmol/L -3.0-5.0 N ABG O2 SATURATION (test code = SATA) 99.1 % 90.0-98.0 H ABG TYPE (test code = TYPEA) Arterial FIO2 (test code = FIO2A) 60.0 ABG VENT RESP RATE (test code = RRA) 16.0 per min ABG TIDAL VOLUME (test code = TVA) 400.0 mL ABG PEEP (test code = PEEPA) 5.0 cmH2O ABG SITE (test code = SITEA) Rt RADIAL ARTERY MODIFIED ALLENS (test code = MODALL) Yes CHECK PERFORMED HEMATOCRIT (test code = HCT/ABG) 36 % 35-47 N TOTAL HGB (test code = THB) 12.1 gram/dL 11.5-15.5 N HGB O2 SAT (test code = HBOSAT) 98.5 % 94.00-98.00 H CARBOXYHEMOGLOBIN (test code = HOHGBT) 0.3 %totalHg 0.5-1.5 LL Results called to and read back by MAGDA De La Fuente 01:20 - 08/14/2019; by VAUGHN METHEMOGLOBIN (test code = METHGB) 0.3 % 0.0-1.50 N O2 CONTENT (test code = O2CT) 17.2 % vol 18.0-22.0 L CBC W/AUTO [id number] 04:31:00* Test Item Value Reference Range Interpretation Comments WHITE BLOOD CELL (test code = WBC) 12.9 K/mm3 4.5-12.5 H RED BLOOD CELL (test code = RBC) 3.48 mill/mm3 3.7-5.2 L HEMOGLOBIN (test code = HGB) 10.5 gram/dL 11.5-15.5 L RESULT VERIFIED BY REPEAT ANALYSIS HEMATOCRIT (test code = HCT) 30.4 % 36.0-46.0 L MEAN CELL VOLUME (test code = MCV) 87.4 fL 80-98 N MEAN CELL HGB (test code = MCH) 30.2 picogram 27.0-33.0 N MEAN CELL HGB CONCETRATION (test code = MCHC) 34.5 gram/dL 33.0-36. 0 N RED CELL DISTRIBUTION WIDTH (test code = RDW) 12.5 % 11.6-16. 2 N RED CELL DISTRIBUTION WIDTH SD (test code = RDW-SD) 40.0 fL 37 .0-51.0 N PLATELET COUNT (test code = PLT) 208 K/mm3 150-450 N MEAN PLATELET VOLUME (test code = MPV) 10.3 fL 6.7-11.0 N NEUTROPHIL % (test code = NT%) 95.2 % 39.0-69.0 H IMMATURE GRANULOCYTE % (test code = IG%) 0.5 % 0.0-5.0 N LYMPHOCYTE % (test code = LY%) 3.0 % 25.0-55.0 L MONOCYTE % (test code = MO%) 1.1 % 0.0-10.0 N EOSINOPHIL % (test code = EO%) 0.0 % 0.0-5.0 N BASOPHIL % (test code = BA%) 0.2 % 0.0-1.0 N NUCLEATED RBC % (test code = NRBC%) 0.0 % 0-0 N NEUTROPHIL # (test code = NT#) 12.25 K/mm3 1.8-7.7 H IMMATURE GRANULOCYTE # (test code = IG#) 0.06 x10 3/uL 0-0.03 H LYMPHOCYTE # (test code = LY#) 0.39 K/mm3 1.0-5.0 L MONOCYTE # (test code = MO#) 0.14 K/mm3 0-0.8 N EOSINOPHIL # (test code = EO#) 0.00 K/mm3 0.0-0.5 N BASOPHIL # (test code = BA#) 0.02 K/mm3 0.0-0.2 N NUCLEATED RBC # (test code = NRBC#) 0.00 K/mm3 0.0-0.1 N [id number] 01:34:00* Test Item Value Reference Range Interpretation Comments GLUBED (test code = GLUBED) 314 mg/dL 74-106 H Performed by certified glove machine operator at [facility] - CT HEAD/BRAIN W/O [id number] 00:15:00 Name: TARA RO [facility] : 1940 Age/S: 79 / F [address] [facility] Unit #: [id number] Loc: [place] [address] Phys: J Luis Berg MD Acct: [id number] Dis Date: Status: ADM IN PHONE #: [phone] Exam Date: 08/13/2019 2343 FAX #: [phone] Reason: EVACUATION OF SUBDURAL HEMATOMA EXAMS: CPT CODE: [id number] CT HEAD/BRAIN W/O CONT 91715 Location: T18 CT head, 08/13/19. The exam was conducted at 2346 hours COMPARISON EXAMS:Head CT exam of 08/13/19 at 1933 hours TECHNIQUE: CT examination of the brain was performed without contrast on a helical scanner. Scanning conducted from skull base to vertex in the axial plane acquiring contiguous 5mm slice thickness . The examination was performed on a [facility] at helical CT scanner utilizing low-dose radiation technique. Automatic exposure control timing was utilized to minimize radiation dose. CLINICAL HISTORY: Evacuation of intracranial hemorrhage. FINDINGS: There is now postoperative changes identified in this patient with left frontal craniotomy defect and with placement of a surgical drain in the left frontal region. There is been largely evacuation of the previously seen acute hemorrhage in the left frontal region with small amount of residual hemorrhage in this area and in the left temporal lobe. This appears predominantly parenchymal in location. Previously seen effacement of the left frontal horn has resolved. Small amount of focal hemorrhage in particular remains just superior to the genu of the corpus callosum in both frontal regions. Small amount of subarachnoid hemorrhage again seen in particular in the right frontal temporal region and with a small amount of subdural and subarachnoid hemorrhage anteriorly in the ri ght frontal region similar to the prior examination. Small amount of intr aventricular hemorrhage is again identified particular in the right occipi trena horn without evolving hydrocephalus. Small amount of subdural hemato ma layering along the falx especially posteriorly. This measures just 3 t o 4 mm breath probably unchanged. Small amount of subarachnoid hemorrhage again seen along the high convexity of the frontal regions. No compromise of the basilar cisterns. Small persistent acute hemorrhage is also noted in the right cerebellum. This measures approximately 12 mm in transverse size by approximately 12 mm in AP dimension. This appears similar to the prior head CT exam earlier. IMPRESSION: Postoperative changes identified with left frontal craniotomy def ect PAGE 1 Signed Report (CONTINUE D) Name: TARA RO [facility] : 1940 Age/S: 79 / F [address] [facility] Unit #: [id number] Loc: [place] [address] Phys: J Luis Gonzalez MD Acct: [id number] Dis Date: Status: ADM IN PHONE #: [phone] Exam Date: 08/13/2019 7325 FAX #: [phone] Reason: EVACUATION OF SUBDURAL HEMATOMA EXAMS: CPT CODE: [id number] CT HEAD/BRAIN W/O CONT 01878 <Continued> and placement of drain in the postoperative bed with largely successful evacuation of the previously seen fairly extensive hemorrhage in the left frontal lobe and with resolution mass effect on the left frontal horn. Acute hemorrhage seen elsewhere in the supratentorium, in the ventricular system and in the right cerebellum relatively unchanged to the prior exam acquired earlier today. No evolving hydrocephalus or e volving edema at 0015 Reported and signed by: Barbie Cleaning M.D. CC: Ruel Hicks MD; J Luis Berg MD Technologist:MAUREEN PATTERSON CT CTDI: DLP: Trnscb Date/Time: 08/14/2019 (001) [email or web address] Orig Print D/T: S: 08/14/2019 (0018) PAGE 2 Signed Report - CT HEAD/BRAIN W/O [id number] 00:15:00 Name: TARA RO [facility] : 1940 Age/S: 79 / F [address] [facility] Unit #: [id number] Loc: [place] [address] Phys: J Luis Berg MD Acct: [id number] Dis Date: Status: ADM IN PHONE #: [phone] Exam Date: 08/13/2019 2345 FAX #: [phone] Reason: EVACUATION OF SUBDURAL HEMATOMA EXAMS: CPT CODE: [id number] CT HEAD/BRAIN W/O CONT 57160 Location: T18 CT head, 08/13/19. The exam was conducted at 2346 hours COMPARISON EXAMS:Head CT exam of 08/13/19 at 1933 hours TECHNIQUE: CT e xamination of the brain was performed without contrast on a helical scanne r. Scanning conducted from skull base to vertex in the axial plane acquiri ng contiguous 5mm slice thickness . The examination was performed on a up take at helical CT scanner utilizing low-dose radiation technique. Automa tic exposure control timing was utilized to minimize radiation dose. CLINICAL HISTORY: Evacuation of intracranial hemorrhage. FINDINGS: There is now postoperative changes identified in this p atient with left frontal craniotomy defect and with placement of a surgica l drain in the left frontal region. There is been largely evacuation of t he previously seen acute hemorrhage in the left frontal region with small amount of residual hemorrhage in this area and in the left temporal lobe. This appears predominantly parenchymal in location. Previously see n effacement of the left frontal horn has resolved. Small amount of focal hemorrhage in particular remains just superior to the genu of the corpus callosum in both frontal regions. Small amount of subarachnoid hemorrhage again seen in particular in the right frontal temporal region and with a small amount of subdural and subarachnoid hemorrhage anteriorly in the ri ght frontal region similar to the prior examination. Small amount of intr aventricular hemorrhage is again identified particular in the right occipi trena horn without evolving hydrocephalus. Small amount of subdural hemato ma layering along the falx especially posteriorly. This measures just 3 t o 4 mm breath probably unchanged. Small amount of subarachnoid hemorrhage again seen along the high convexity of the frontal regions. No compromise of the basilar cisterns. Small persistent acute hemorrhage is also noted in the right cerebellum. This measures approximately 12 mm in transverse size by approximately 12 mm in AP dimension. This appears similar to the prior head CT exam earlier. IMPRESSION: Postoperative changes identified with left frontal craniotomy def ect PAGE 1 Signed Report (CONTINUE D) Name: TARA RO [facility] : 1940 Age/S: 79 / F [address] [facility] Unit #: [id number] Loc: [place] [address] Phys: J Luis Gonzalez MD Acct: [id number] Dis Date: Status: ADM IN PHONE #: [phone] Exam Date: 08/13/2019 4734 FAX #: Reason: EVACUATION OF SUBDURAL HEMATOMA EXAMS: CPT CODE: [id number] CT HEAD/BRAIN W/O CONT 10916 <Continued> and placement of drain in the postoperative bed with largely successful evacuation of the previously seen fairly extensive hemorrhage in the left frontal lobe and with resolution mass effect on the left frontal horn. Acute hemorrhage seen elsewhere in the supratentorium, in the ventricular system and in the right cerebellum relatively unchanged to the prior exam acquired earlier today. No evolving hydrocephalus or e volving edema at 0015 Reported and signed by: Barbie Cleaning M.D. CC: Ruel Hicks MD; J Luis Breg MD Technologist:MAUREEN SHAFFER CTDI: DLP: Trnscb Date/Time: 08/14/2019 (001) [email or web address] Orig Print D/T: S: 08/14/2019 (0018) PAGE 2 Signed Report ARTERIAL BLOOD [id number] 23:00:00* Test Item Value Reference Range Interpretation Comments ARTERIAL BLOOD GAS PH (test code = PHA) 7.49 7.35-7.45 H ARTERIAL BLOOD GAS PCO2 (test code = PCO2A) 27.6 mm Hg 35-45 L ARTERIAL BLOOD GAS PO2 (test code = PO2A) 210.2 mmHg 80-100 H BICARBONATE TOTAL HCO3 (test code = HCO3) 20.7 mmol/L 23.0-27.0 L BASE EXCESS (test code = ALEE) -1.4 mmol/L -3.0-5.0 N ABG O2 SATURATION (test code = SATA) 99.3 % 90.0-98.0 H ABG TYPE (test code = TYPEA) Arterial FIO2 (test code = FIO2A) 100.0 ABG L/M (test code = L/M) 50.00 L/MIN ABG VENT MODE (test code = MODEA) Assist Control ABG VENT RESP RATE (test code = RRA) 18.0 per min ABG TIDAL VOLUME (test code = TVA) 400.0 mL ABG PEEP (test code = PEEPA) 5.0 cmH2O ABG TEMPERATURE (test code = TEMPA) 37.0 Celsius ABG SITE (test code = SITEA) ARTERIAL LINE MODIFIED ALLENS (test code = MODALL) Yes CHECK PERFORMED HEMATOCRIT (test code = HCT/ABG) 39 % 35-47 N TOTAL HGB (test code = THB) 13.1 gram/dL 11.5-15.5 N HGB O2 SAT (test code = HBOSAT) 98.5 % 94.00-98.00 H CARBOXYHEMOGLOBIN (test code = HOHGBT) 0.6 %totalHg 0.5-1.5 N METHEMOGLOBIN (test code = METHGB) 0.2 % 0.0-1.50 N O2 CONTENT (test code = O2CT) 18.6 % vol 18.0-22.0 N A-A GRADIENT (test code = AAGRADE) 475.2 mm Hg - XR CHEST 1 [id number] 20:24:00 FAX: Magda French [place]: St: [facility] FAX: Ruel Hicks [phone] Name: TARA RO [facility] : 1940 Age/S: 79/F [address] [facility] Unit #: [id number] Loc: [address] [place] [address] Phys: Magda French Acct: [id number] Dis Date: Status: ADM IN PHONE #: [phone] Exam Date: 08/13/20192012 FAX #: [phone] Reason: intubated EXAMS: CPT CODE: [id number] XR CHEST 1 V 88516 REASON FOR EXAM: intubated EXAM ORDER DATE: 08/13/2019 12:00 AM Ordering: SUSI Whitaker Attending:Ruel Hicks MD Location: PROCEDURE: - XR CHEST 1 V COMPARISON: 08/13/2019 5:22 PM FINDINGS: Portable AP frontal view of the chest obtained at 8:13 PM shows clear lungs without evidence of consolidation. There is no evidence of effusion. The heart size is within normal limits. Pulmonary vasculatures are unremarkable. Stable appearance of the NG tube. IMPRESSION: Status post intubation with the tip of the ET tube at the level of the brandin. Recommend pulling back the ET tube 2 cm at 2023 Reported and signed by: Jose Rafael Cartagena M.D. CC: Magda French; Ruel Hicks MD Technologist: Omkar Mcclure RT(R); Mercy Davis RT(R) Trnscrd Date/Time/By: 08/13/2019 (2023) : By: SaloVTL Orig Print D/T: S: 08/13/2019 (2027) PAGE 1 Signed Report - XR CHEST 1 [id number] 20:24:00 FAX: Magda French [place]: St: [facility] FAX: Ruel Hicks [phone] Name: TARA RO [facility] : 1940 Age/S: 79/F [address] [facility] Unit #: [id number] Loc: [place] [address] Phys: Magda French Acct: [id number] Dis Date: Status: ADM IN PHONE #: [phone] Exam Date: 08/13/20192012 FAX #: [phone] Reason: intubated EXAMS: CPT CODE: [id number] XR CHEST 1 V 05672 REASON FOR EXAM: intubated EXAM ORDER DATE: 08/13/2019 12:00 AM Ordering: SUSI Whitaker Attending:Ruel Hicks MD Location: PROCEDURE: - XR CHEST 1 V COMPARISON: 08/13/2019 5:22 PM FINDINGS: Portable AP frontal view of the chest obtained at 8:13 PM shows clear lungs without evidence of consolidation. There is no evidence of effusion. The heart size is within normal limits. Pulmonary vasculatures are unremarkable. Stable appearance of the NG tube. IMPRESSION: Status post intubation with the tip of the ET tube at the level of the brandin. Recommend pulling back the ET tube 2 cm at 2023 Reported and signed by: Jose Rafael Cartagena M.D. CC: Magda French; Ruel Hicks MD Technologist: Omkar Mcclure RT(R); Mercy Davis RT(R) Trnscrd Date/Time/By: 08/13/2019 (2023) : By: [email or web address] Orig Print D/T: S: 08/13/2019 (2027) PAGE 1 Signed Report - CT HEAD/BRAIN W/O [id number] 19:55:00 Name: TARA RO [facility] : 1940 Age/S: 79 / F [address] [facility] Unit #: [id number] Loc: [place] [address] Phys: J Luis Berg MD Acct: [id number] Dis Date: Status: ADM IN PHONE #: [phone] Exam Date: 08/13/20191934 FAX #: [phone] Reason: f/u hematoma. To be performed at exactly 7:30 P EXAMS: CPT CODE: [id number] CT HEAD/BRAIN W/O CONT 69380 REASON FOR EXAM: f/u hematoma. To be performed at exactly 7:30 PM EXAM ORDER DATE: 08/13/2019 4:21 PM Ordering: J Luis Berg MD Attending:Ruel Hicks MD Location:[facility] PROCEDURE: - CT HEAD/BRAIN W/O CONT COMPARISON: 08/13/2019 3:24 PM FINDINGS: CT images of the brain were obtained without IV contrast. Dose modulation, iterative reconstruction, and/or weight based adjustment of the MA/KV was utilized to reduce the radiation dose to as low as reasonably achievable. Interval enlargement of the left frontal subdural hematoma and subarachnoid hemorrhage from previous exam. Stable appearance of the left temporal/parietal subdural hemorrhage. New development of intravent ricular hemorrhage. Mild mass effect on the lateral ventricles and minima l left to right shift less than 1 cm. IMPRESSION: Interval worse yannick of the bilateral frontal subdural hemorrhage with mild mass effect on the frontal lobe. Beuk-wd-zifyk shift of less than 1 cm. New develo pment of intraventricular hemorrhage and additional hemorrhage adjacent to the skull base fracture at 1954 Reported and signed by: Jose Rafael Cartagena M.D. CC: Ruel Hicks MD; J Luis Berg MD Technologist:Anna Whitfield RT(R) CTDI: DLP: Trnscb Date/Time: 08/13/2019 (1954) t.SDR.VTL Orig Print D/T: S: 08/13/2019 (1957) PAGE 1 Signed Report - CT HEAD/BRAIN W/O [id number] 19:55:00 Name: TARA RO [facility] : 1940 Age/S: 79 / F [address] [facility] Unit #: [id number] Loc: [place] [address] Phys: J Luis Berg MD Acct: [id number] Dis Date: Status: ADM IN PHONE #: [phone] Exam Date: 08/13/20191934 FAX #: [phone] Reason: f/u hematoma. To be performed at exactly 7:30 P EXAMS: CPT CODE: [id number] CT HEAD/BRAIN W/O CONT 38512 REASON FOR EXAM: f/u hematoma. To be performed at exactly 7:30 PM EXAM ORDER DATE: 08/13/2019 4:21 PM Ordering: J Luis Berg MD Attending:Ruel Hicks MD Location:[facility] PROCEDURE: - CT HEAD/BRAIN W/O CONT COMPARISON: 08/13/2019 3:24 PM FINDINGS: CT images of the brain were obtained without IV contrast. Dose modulation, iterative reconstruction, and/or weight based adjustment of the MA/KV was utilized to reduce the radiation dose to as low as reasonably achievable. Interval enlargement of the left frontal subdural hematoma and subarachnoid hemorrhage from previous exam. Stable appearance of the left temporal/parietal subdural hemorrhage. New development of intravent ricular hemorrhage. Mild mass effect on the lateral ventricles and minima l left to right shift less than 1 cm. IMPRESSION: Interval worse yannick of the bilateral frontal subdural hemorrhage with mild mass effect on the frontal lobe. Rtpd-bu-rtqql shift of less than 1 cm. New develo pment of intraventricular hemorrhage and additional hemorrhage adjacent to the skull base fracture at 1954 Reported and signed by: Jose Rafael Cartagena M.D. CC: Ruel Hicks MD; J Luis Berg MD Technologist:Anna Whitfield RT(R) CTDI: DLP: Trnscb Date/Time: 08/13/2019 (1954) t.SDR.VTL Orig Print D/T: S: 08/13/2019 (1957) PAGE 1 Signed Report - XR CHEST 1 [id number] 17:30:00 FAX: Della Meredith NP [phone] [place]: St: [facility] FAX: Ruel Hicks [phone] Name: TARA RO [facility] : 1940 Age/S: 79/F [address] [facility] Unit #: [id number] Loc: [address] [place] [address] Phys: Della Meredith NP Acct: [id number] Dis Date: Status: ADM IN PHONE #: [phone] Exam Date: 08/13/2019 1722 FAX #: [phone] Reason: NG TUBE PLACEMENT EXAMS: CPT CODE: [id number] XR CHEST 1 V 10944 REASON FOR EXAM: NG TUBE PLACEMENT EXAM ORDER DATE: 08/13/2019 5:11 PM Ordering: Della Meredith NP Atten ding:Ruel Hicks MD Location:[facility] PROCEDURE: - XR CH EST 1 V COMPARISON: 08/13/2019 3:53 PM FINDINGS: Por table AP frontal view of the chest obtained at 2:22 PM shows clear lungs w ithout evidence of consolidation. There is no evidence of effusion. The he art size is within normal limits. Pulmonary vasculatures are unremarkable. IMPRESSION: Newly placed NG tube tip is in the proximal stomach with the sidehole at the gastroesophageal junction. Electr onically Signed by Jerry Cartagena on 08/13/2019 at 1730 Re ported and signed by: Jose Rafael Cartagena M.D. CC: Della Meredith NP; Ruel Garcia MD Technologist: Omkar Mcclure RT(R) Trnkyrd Date/Time/By: 08/13/2019 (173) : By: SaloVTL Orig Print D/T: S: 08/13/2019 (7672) PAGE 1 Signed Report - XR CHEST 1 V 2019-08-13 17:30:00 FAX: Della Meredith NP [phone] [place]: St: [facility] FAX: Ruel Hicks [phone] Name: TARA RO [facility] : 1940 Age/S: 79/F [address] [facility] Unit #: [id number] Loc: [place] [address] Phys: Della Meredith NP Acct: [id number] Dis Date: Status: ADM IN PHONE #: [phone] Exam Date: 08/13/2019 1722 FAX #: [phone] Reason: NG TUBE PLACEMENT EXAMS: CPT CODE: [id number] XR CHEST 1 V 98211 REASON FOR EXAM: NG TUBE PLACEMENT EXAM ORDER DATE: 08/13/2019 5:11 PM Ordering: Della Meredith NP Attending:Ruel Hicks MD Location:[facility] PROCEDURE: - XR CHEST 1 V COMPARISON: 08/13/2019 3:53 PM FINDINGS: Portable AP frontal view of the chest obtained at 2:22 PM shows clear lungs without evidence of consolidation. There is no evidence of effusion. The heart size is within normal limits. Pulmonary vasculatures are unremarkable. IMPRESSION: Newly placed NG tube tip is in the proximal stomach with the sidehole at the gastroesophageal junction. at 1730 Reported and signed by: Jose Rafael Cartagena M.D. CC: Della Meredith HOG PUSHER; Ruel Hicks MD Technologist: Omkar Mcclure RT(R) Trnscrd Date/Time/By: 08/13/2019 (4904) : By: [email or web address] Orig Print D/T: S: 08/13/2019 (5479) PAGE 1 Signed Report - XR CHEST 1 [id number] 16:04:00 FAX: Myla Delgado [phone] [place]: St: ADM Name: Kaycee SANABRIATARAERENDIRA KAYE [facility] : [birth year] Age/S: 79/F [address] [facility] Unit #: [id number] Loc: [address] [place] [address] Phys: Myla Arce MD Acct: [id number] Dis Date: Status: ADM IN PHONE #: [phone] Exam Date: 08/13/2019 1553 FAX #: [phone] Reason: CHEST PAIN EXAMS: CPT CODE: [id number] XR CHEST 1 V 32430 REASON FOR EXAM: CHEST PAIN EXAM ORDER DATE: 08/13/2019 3:09 PM Ordering: Myla Arce MD Attending:Myla Arce MD Location:[facility] PROCEDURE: - XR CHEST 1 V COMPARISON: FINDINGS: Portable AP frontal view of the chest obtained at 3:53 PM shows clear lungs without evidence of consolidation. There is no evidence of effusion. The heart size is within normal limits. Pulmonary vasculatures are unre markable. IMPRESSION: No active disease. Electronic ally Signed by Jerry Cartagena on 08/13/2019 at 1604 Report ed and signed by: Jose Rafael Cartagena M.D. CC: Myla Arce MD Technologist: Mercy Davis RT(R) Trnscrd Date/Time/By: 08/13/2019 (9530) : By: SaloVTL Orig Print D/T: S: 08/13/2019 (1343) PAGE 1 Signed Report - XR CHEST 1 V 2019-08-13 16:04:00 FAX: Myla Delgado [phone] [place]: St: REG Name: Kaycee SANABRIATARA [facility] : [birth year] Age/S: 79/F [address] [facility] Unit #: [id number] Loc: [place] [address] Phys: Myla Arce MD Acct: [id number] Dis Date: Status: REG ER PHONE #: [phone] Exam Date: 08/13/2019 1553 FAX #: [phone] Reason: CHEST PAIN EXAMS: CPT CODE: [id number] XR CHEST 1 V 53657 REASON FOR EXAM: CHEST PAIN EXAM ORDER DATE: 08/13/2019 3:09 PM Ordering: Myla Arce MD Attending:Myla Arce MD Location:[facility] PROCEDURE: - XR CHEST 1 V COMPARISON: FINDINGS: Portable AP frontal view of the chest obtained at 3:53 PM shows clear lungs without evidence of consolidation. There is no evidence of effusion. The heart size is within normal limits. Pulmonary vasculatures are unre markable. IMPRESSION: No active disease. Electronic ally Signed by Jerry Cartagena on 08/13/2019 at 1604 Report ed and signed by: Jose Rafael Cartagena M.D. CC: Myla Arce MD Technologist: Mercy Davis RT(R) Trnscrd Date/Time/By: 08/13/2019 (9060) : By: SaloVTL Orig Print D/T: S: 08/13/2019 (8905) PAGE 1 Signed Report PROTHROMBIN TIME 2019-08-13 15:49:00* Test Item Value Reference Range Interpretation Comments PROTHROMBIN TIME PATIENT (test code = PTP) 11.5 seconds 9.0-14.0 N INTERNATIONAL NORMAL RATIO (test code = INR) 1.0 0.8-1.2 N The therapeutic range for oral anticoagulant therapy formost indications is an international normalized ratio (INR)of between 2.0 and 3.0. The recommended therapeutic INRrange for various clinical situations is listed below: Clinical Situation INR range Pulmonary e mbolism treatment (2.0-3.0)Venous thrombosis treatmentVenous thrombosis prophylaxis (high risk surgery)Prevention of systemic embolism from: Acute myocardial infarction Valvular heart disease Atrial fibrillation Mechanical prosthetic heart valves (2.5-3.5) IS PATIENT ON ANTICOAGULANTS? NTHROMBOPLASTIN TIME [id number] 15:49:00* Test Item Value Reference Range Interpretation Comments THROMBOPLASTIN TIME PARTIAL (test code = PTT) 34.7 seconds 25.0-36. 5 N IS PATIENT ON ANTICOAGULANTS? NBASIC METABOLIC [id number] 15:45:00* Test Item Value Reference Range Interpretation Comments SODIUM (test code = NA) 130 mmol/L 136-145 L POTASSIUM (test code = K) 4.1 mmol/L 3.5-5.1 N CHLORIDE (test code = CL) 96.0 mmol/L 98-107 L CARBON DIOXIDE (test code = CO2) 28.0 mmol/L 21-32 N ANION GAP (test code = GAP) 10.1 10-20 N GLUCOSE (test code = GLU) 194 mg/dL 74-106 H BLOOD UREA NITROGEN (test code = BUN) 12 mg/dL 7-18 N GLOMERULAR FILTRATION RATE (test code = GFR) > 60 mL/min >=60 Estimated GFR by using Modified MDRD formula.Chronic kidney disease is defined as either kidney damageor GFR <60 mL/min/1.73 m2 for >3 months. CREATININE (test code = CREAT) 0.80 mg/dL 0.55-1.02 N Note change in reference range due to change in reagent. BUN/CREATININE RATIO (test code = BUN/CREA) 15.0 10-20 N CALCIUM (test code = CA) 9.7 mg/dL 8.5-10.1 N - CT C-SPINE W/O [id number] 15:45:00 Name: JIATARA KAYE [facility] : 1940 Age/S: 79 / F [address] [facility] Unit #: [id number] Loc: [place] [address] Phys: Myla Arce MD Acct: [id number] Dis Date: Status: ADM IN PHONE #: [phone] Exam Date: 08/13/2019 1538 FAX #: [phone] Reason: Neck Pain EXAMS: CPT CODE: [id number] CT C-SPINE W/O CONTRAST [id number] REASON FOR EXAM: Neck Pain EXAM ORDER DATE: 08/13/2019 3:09 PM Ordering: Myla Arce MD Attending:Myla Arce MD Location:[facility] PROCEDURE: - CT C-SPINE W/O CONTRAST FINDINGS: CT images of the cervical spine were obtained without IV contrast at 2.5mm. Reconstructed coronal and sagittal images were also provided. Dose modulation, iterative reconstruction, and/or weight based adjustment of the MA/KV was utilized to reduce the radiation dose to as low as reasonably achievable. The osseous structures are intact. Anterior osteophytes noted at C5-6 The central canal is patent. Mild narrowing of C5-6 disc space IMPRESSION: Degenerative changes and disc disease. No acute findings at 1545 Reported and signed by: Jose Rafael Cartagena M.D. CC: Myla Arce MD Technologist:Gerri Livingston RT(R),CT CTDI: DLP: Trnscb Date/Time: 08/13/2019 (3692) t.[email or web address] Orig Print D/T: S: 08/13/2019 (7981) PAGE 1 Signed Report - CT C-SPINE W/O [id number] 15:45:00 Name: TARA RO [facility] : 12/26/1939 Age/S: 79 / F [address] [facility] Unit #: [id number] Loc: [place] [address] Phys: Myla Arce MD Acct: [id number] Di s Date: Status: PRE ER PHONE #: Exam Date: 08/13/2019 1538 FAX #: Reason: Neck Pain EXAMS: CPT CODE: [id number] CT C-SPINE W/O CONTRAST 23190 REASON FOR EXAM: Neck Pain EXAM ORDER DATE: 08/13/2019 3:09 PM Orderin g: Myla Arce MD Attending:Myla Arce MD Location:[facility] PROCEDURE: - CT C-SPINE W/O CONTRAST FIND INGS: CT images of the cervical spine were obtained without IV contrast at 2.5mm. Reconstructed coronal and sagittal images were also provided. Dose modulation, iterative reconstruction, and/or weight based adjustment of the MA/KV was utilized to reduce the radiation dose to as low as reasonabl y achievable. The osseous structures are intact. Anterior osteop hytes noted at C5-6 The central canal is patent. Mil d narrowing of C5-6 disc space IMPRESSION: Degenerative changes and disc disease. No acute findings at 1545 Reported and signed by: Jose Rafael Cartagena M.D. CC: Myla Arce MD Technologist:Gerri Livingston RT(R),CT CTDI: DLP: Trnscb Date/Time: 08/13/2019 (2580) [email or web address] Orig Print D/T: S: 08/13/2019 (8534) PAGE 1 Signed Report - CT HEAD/BRAIN W/O [id number] 15:44:00 Name: TARA RO [facility] : 1940 Age/S: 79 / F [address] [facility] Unit #: [id number] Loc: [place] [address] Phys: Myla Arce MD Acct: [id number] Dis Date: Status: ADM IN PHONE #: [phone] Exam Date: 08/13/2019 1538 FAX #: [phone] Reason: HEADACHE EXAMS: CPT CODE: [id number] CT HEAD/BRAIN W/O CONT 21949 REASON FOR EXAM: HEADACHE EXAM ORDER DATE: 08/13/2019 3:09 PM Ordering: Myla Arce MD Attending: Location:[facility] PROCEDURE: - CT HEAD/BRAIN W/O CONT COMPARISON: FINDINGS: CT images of the brain were obtained without IV contrast. Dose modulation, iterative reconstruction, and/or weight based adjustment of the MA/KV was utilized to reduce the radiation dose to as low as reasonably achievable. Bilateral frontal and left temporal/parietal subdural with minimal subarachnoid hemorrhage more pronounced on the left. No evidence of mass effect IMPRESSION: Bilateral frontal subdural hemorrhage with minimal subarachnoid and intraparenchymal hemorrhage with a nondepressed skull base fracture. The thickness of the subdural hemorrhage measuring approximately 1.[address] Barton was informed of the findings by telephone at 2:42 PM FOR INTERNAL CODING PURPOSES ONLY RESULT CODE: CVR at 9258 Reported and signed by: Jose Rafael Cartagena M.D. CC: Myla Arce MD Technologist:Gerri Livingston RT(R),CT CTDI: DLP: Trnscb Date/Time: 08/13/2019 (0677) [email or web address] Orig Print D/T: S: 08/13/2019 (1345) PAGE 1 Signed Report - CT HEAD/BRAIN W/O [id number] 15:44:00 Name: TARA RO [facility] : 12/26/1939 Age/S: 79 / F [address] [facility] Unit #: [id number] Loc: [place] [address] Phys: Myla Arce MD Acct: [id number] Dis Date: Status: PRE ER PHONE #: [phone] Exam Date: 08/13/2019 1538 FAX #: [phone] Reason: HEADACHE EXAMS: CPT CODE: [id number] CT HEAD/BRAIN W/O CONT 98943 REASON FOR EXAM: HEADACHE EXAM ORDER DATE: 08/13/2019 3:09 PM Ordering: Myla Arce MD Attending: Location:[facility] PROCEDURE: - CT HEAD/BRAIN W/O CONT COMPARISON: FINDINGS: CT images of the brain were obtained without IV contrast. Dose modulation, iterative reconstruction, and/or weight based adjustment of the MA/KV was utilized to reduce the radiation dose to as low as reasonably achievable. Bilateral frontal and left temporal/parietal subdural with minimal subarachnoid hemorrhage more pronounced on the left. No evidence of mass effect IMPRESSION: Bilateral frontal subdural hemorrhage with minimal subarachnoid and intraparenchymal hemorrhage with a nondepressed skull base fracture. The thickness of the subdural hemorrhage measuring approximately 1.[address] Barton was informed of the findings by telephone at 2:42 PM FOR INTERNAL CODING PURPOSES ONLY RESULT CODE: CVR at 4253 Reported and signed by: Jose Rafael Cartagena M.D. CC: Myla Arce MD Technologist:Gerri Livingston RT(R),CT CTDI: DLP: Trnscb Date/Time: 08/13/2019 (4819) [email or web address] Orig Print D/T: S: 08/13/2019 (5549) PAGE 1 Signed Report BASIC METABOLIC [id number] 15:42:00* Test Item Value Reference Range Interpretation Comments SODIUM (test code = NA) 130 mmol/L 136-145 L POTASSIUM (test code = K) 4.1 mmol/L 3.5-5.1 N CHLORIDE (test code = CL) 96.0 mmol/L 98-107 L CARBON DIOXIDE (test code = CO2) mmol/L 21-32 ANION GAP (test code = GAP) 10-20 GLUCOSE (test code = GLU) mg/dL 74-106 BLOOD UREA NITROGEN (test code = BUN) mg/dL 7-18 GLOMERULAR FILTRATION RATE (test code = GFR) mL/min >=60 CREATININE (test code = CREAT) mg/dL 0.55-1.02 BUN/CREATININE RATIO (test code = BUN/CREA) 10-20 CALCIUM (test code = CA) 9.7 mg/dL 8.5-10.1 N CBC W/O [id number] 15:42:00* Test Item Value Reference Range Interpretation Comments WHITE BLOOD CELL (test code = WBC) 7.8 K/mm3 4.5-12.5 N RED BLOOD CELL (test code = RBC) 4.46 mill/mm3 3.7-5.2 N HEMOGLOBIN (test code = HGB) 13.7 gram/dL 11.5-15.5 N HEMATOCRIT (test code = HCT) 39.4 % 36.0-46.0 N MEAN CELL VOLUME (test code = MCV) 88.3 fL 80-98 N MEAN CELL HGB (test code = MCH) 30.7 picogram 27.0-33.0 N MEAN CELL HGB CONCETRATION (test code = MCHC) 34.8 gram/dL 33.0-36. 0 N RED CELL DISTRIBUTION WIDTH (test code = RDW) 12.3 % 11.6-16. 2 N PLATELET COUNT (test code = PLT) 250 K/mm3 150-450 N MEAN PLATELET VOLUME (test code = MPV) 9.8 fL 6.7-11.0 N CBC W/O [id number] 15:36:00* Test Item Value Reference Range Interpretation Comments WHITE BLOOD CELL (test code = WBC) K/mm3 4.5-12.5 RED BLOOD CELL (test code = RBC) mill/mm3 3.7-5.2 HEMOGLOBIN (test code = HGB) 13.7 gram/dL 11.5-15.5 N HEMATOCRIT (test code = HCT) 39.4 % 36.0-46.0 N MEAN CELL VOLUME (test code = MCV) fL 80-98 MEAN CELL HGB (test code = MCH) picogram 27.0-33.0 MEAN CELL HGB CONCETRATION (test code = MCHC) gram/dL 33.0-36. 0 RED CELL DISTRIBUTION WIDTH (test code = RDW) % 11.6-16. 2 PLATELET COUNT (test code = PLT) K/mm3 150-450 MEAN PLATELET VOLUME (test code = MPV) fL 6.7-11.0 MRI SHOULDER RIGHT [id number] 13:56:00 [place] [address] Patient Name: TARA RO MR #: [id number] : 1940 Age/Sex: 79/F Req #: [id number] Adm Physician: Ordered by: BIRGIT CARABALLO MD Report #: [id number] Location: MRI Room/Bed: Procedure: [id number] MRI /MRI SHOULDER RIGHT WO Exam Date: Exam Time: REPORT STATUS: Signed MRI of the r ight shoulder without contrast. History: Shoulder pain. Injury. Decreased range of motion. Comparison: None Technique: Coronal PD FS, sagital P D FS, and axial PD and PD FS. Findings: Rotator cuff: Rotator cuff tendin osis with full-thickness tear involving the anterior fibers of the supraspinat us tendon at the humeral insertion site. Minimal retraction of the torn fibers and mild supraspinatus muscle atrophy. Additionally, there is subscapularis a nd infraspinatus tendinosis. The teres minor tendon is intact. Osseous ac romion complex: Type II acromion with mild lateral downsloping. Mild degenerat yannick arthrosis at the acromioclavicular joint with undersurface spurring and na rrowing of the supraspinatus tendon outlet. Mild subacromial/subdeltoid bursit is. Glenohumeral joint: Degenerative type tearing of the labrum with small posterior superior labral cyst. The articular cartilage surfaces are slightly thin. The humeral head is well-seated in the glenoid fossa. Small effusion and mild synovitis in the rotator interval and subcoracoid space. Biceps ten don: The long head of the biceps tendon is torn and retracted proximally along the shaft of the humerus. Other findings: Negative for muscle denervation or osseous fracture. Impression: Rotator cuff tendinosis with full-thickn ess tear involving the anterior fibers of the supraspinatus tendon at the yang ral insertion site. Minimal retraction of the torn fibers and mild supraspinat us muscle atrophy. The long head of the biceps tendon is torn and retracted proximally along the shaft of the humerus. Mild degenerative arthrosis at the acromioclavicular joint with undersurface spurring and narrowing of the supraspinatus tendon outlet. Mild subacromial/subdeltoid bursitis Signed by: Dr. Margarito Benedict M.D. on 07/29/2019 2:00 PM Dictated By: MARGARITO BENEDICT MD, MD 99 Transcri bed By: NADER on 07/29/19 1400 COPY TO: BIRGIT CARABALLO MD BONE DXA DUAL [id number] 13:12:00 [place] [address] Patient Name: TARA RO MR #: [id number] : 1940 Age/Sex: 79/F Req #: [id number] Adm Physician: Ordered by: BIRGIT CARABALLO MD Report #: [id number] Location: MRI Room/Bed: Procedure: [id number] DX/ BONE DXA DUAL ENERGY Exam Date: Exam Time: REPORT STATUS: Signed Exam: Bone title examiner al density study. History: Osteoporosis Comparison: None Discus shin: Evaluation of the left hip and lumbar spine was performed utilizing DEX A Hologic bone densitometer. The study is technically adequate. The patie nt's fracture risk is compared to an age-matched control. The patient denies p rior surgery/fracture of the spine, hips or forearm. Left hip femoral neck bone mineral density: 0.728 g/cm2, T-score is -1.2, Z-score is 1.0. Left hi p total bone mineral density: 0.777 g/cm2, T-score is -1.4, Z-score is 0.6. Lumbar spine total bone mineral density: 0.822 gm/cm2, T-score is -2.0, Z-score is 0.6. Impression: 1. Bone mineralization by WHO Classificatio n of the left hip is osteopenia, the fracture risk is moderate. 2. Bone mine ralization by WHO Classification of the lumbar spine is osteopenia, the fractu re risk is moderate. Recommendations: Medical evaluation for secondary ca uses of low bone mineral density may be appropriate. Correlate clinically for the necessity and timing of the next bone mineral density study. Sig armando by: Dr. Yomi Calderon MD on 07/29/2019 1:13 PM Dictated By: YOMI MCMILLAN MD 12 Transcribed B y: NADER on 07/29/191312 COPY TO: BIRGIT CARABALLO MD CT CHEST [id number] 15:16:00 [place] [address] Patient Name: TARA RO MR #: [id number] : 1940 Age/Sex: 78/F Req #: [id number] Adm Physician: Ordered by: BIRGIT CARABALLO MD Report #: [id number] Location: [facility] Room/Bed: Procedure: [id number] CT/ CT CHEST WO Exam Date: 01/26/19 Exam Time: 1415 REPORT STATUS: Signed Exam: CT chest Clinical history: Cough, nausea Technique: Helical images of the chest were obtained without contrast DOSE REDUCTION: The exams was performed a ccording to the departmental dose-optimization program which includes automate d exposure control, adjustment of the mA and/or kV according to patient size a nd/or use of iterative reconstruction technique. Findings: There is no ev idence of pulmonary consolidation, nodule, edema, pleural effusion, interstiti al disease, or pneumothorax. The tracheobronchial tree is clear. The cardiac s ize is within normal limits. The great vessels are normal in caliber and confi guration. There is no evidence of mediastinal or hilar adenopathy. The vi sualized upper abdominal solid organs are unremarkable. Impression: 1. Un remarkable noncontrast CT of chest. Signed by: Dr. Arash Barnett MD on 2018 3:18 PM Dictated By: VITALY BARNETT MD 17 Transcribed By: NADER on 01/26/191517 COPY TO: BIRGIT CARABALLO MD MAMMOGRAPHY DIGITAL SCR [id number] 14:18:00 [place] [address] Patient Name: TARA RO MR #: [id number] : 1940 Age/Sex: 78/F Req #: [id number] [facility] Physician: Ordered by: BIRGIT CARABALLO MD Report #: [id number] Location: MAMMO Room/Bed: Procedure: [id number] MG/ MAMMOGRAPHY DIGITAL SCR BILAT Exam Date: 01/26/19 Ex am Time: 1355 REPORT STATUS: Signed #[id number] - MGSCRBIL #BILATERAL DIGITAL SCREENING MAMMOGRAM WITH C AD: 01/26/2019 CLINICAL: Routine screening. Comparison is made to exams dated: 12/27/2017 mammogram and 11/05/2016 mammogram - [facility]. Current study contains 4 films. The tissue of both breasts is h eterogeneously dense. This may lower the sensitivity of mammography. Curre nt study was also evaluated with a Computer Aided Detection (CAD) system. St able benign appearing calcifications are noted bilaterally. There are also benig n vascular calcifications in both breasts. No significant masses, calcifi cations, or other findings are seen in either breast. IMPRESSION: BENIGN There is no mammographic evidence of malignancy. A 1 year screening mammogram is recommended. The patient will be notified by letter of the results. CHAYITO shaffer/edin:01/30/2019 12:42:52 Lcac Operator: Veda JONES(Kaycee)(Darren), [facility] cesia er sent: Normal Exam Mammogram BI-RADS: 2 Benign Dictated By: CHAYITO LE MD 1242 Transcribed By: EDIN on 01/30/19 1242 COPY TO: BIRGIT CARABALLO MD BARIUM [id number] 14:53:00 [place] [address] Patient Name: TARA RO MR #: [id number] : 1940 Age/Sex: 78/F Req #: [id number] Adm Physician: Ordered by: BIRGIT CARABALLO MD Report #: [id number] Location: DX Room/Bed: Procedure: [id number] DX/ BARIUM SWALLOW Exam Date: 07/09/18 Exam Time: 1000 REPORT STATUS: Signed FLUOROSCOPIC BARIUM SWALLOW HISTORY: Dysphagia DAIRY LAB TECHNICIAN: Jana Arroyo MD Comparison: None. Procedure: Double contrast barium swallow was performed using thick and thin oral barium and effervescent crystals. Radiation E xposure: Fluoroscopy Time: 1.5 minute Radiation dose: 19.5 mGy DISCUSS ION: ESOPHAGUS: Motility: Primarily primary and secondary contractions. Scattered tertiary contractions. Mucosa: Unremarkable. Distensibil ity: Normal. GASTROESOPHAGEAL JUNCTION: Small hiatal hernia. GASTRO ESOPHAGEAL REFLUX: Severe spontaneous gastroesophageal reflux. STOMACH: Normally distensible and demonstrates normal contours and mucosal pattern. DUODENUM/PROXIMAL SMALL BOWEL: Unremarkable. IMPRESSION: Severe spont aneous gastroesophageal reflux. Small hiatal hernia. Signed by: Dr. Jana Arroyo MD on 07/09/2018 2:56 PM Dictated By: JANA ARROYO MD Electronic ally Signed By: JANA ARROYO MD on 07/09/18 5394 Transcribed By: NADER on 07/09 1456 COPY TO: BIRGIT CARABALLO MD MAMMOGRAPHY DIGITAL SCR BILAT 2017-12-27 10:54:00 [place] [address] Patient Name: TARA RO MR #: [id number] : 1940 Age/Sex: 77/F Req #: [id number] [facility] Physician: Ordered by: BIRGIT CARABALLO MD Report #: [id number] Location: MAMMO Room/Bed: Procedure: [id number] MG/MAMMOGRAPHY DIGITAL SCR BILAT Exam Date: 12/27/17 Exam Time: 923 REPO RT STATUS: Signed #[id number] - MGSCRBIL #BILATERAL DIGITAL SCREENING MAMMOGRAM WITH CAD: 12/27/2017 CLINICAL: Routine screening. Comparison is made to exams dated: 11/05/2016 mammogram and 11/22/2014 mammogram - [facility]. Current study contains 4 films. The tissue of both breasts is extremely dense, which lowers the sensitivity of mammography. Current study was also evaluated with a Computer Aided Detection (CAD) system. There are benign vascular calcifications in both breasts. There also are b enign lymph nodes in both breasts. Additionally there are benign scattered c alcifications in both breasts. No significant masses, calcifications, or oth er findings are seen in either breast. There has been no significant interva l change. IMPRESSION: BENIGN There is no mammographic evidence of maligna ncy. A 1 year screening mammogram is recommended. The patient will be notifi ed by letter of the results. Noni ansari/christ rad:01/09/2018 14:38:52 Lcac Operator: Veda Romo RT(R)(M), [facility] letter sent: Compared to Prior B9 Mammogram BI-RADS: 2 Benign Dictated By: NONI TOBIAS DO 1438 Transcribed By: EDIN on 01/09/18 1438 COPY TO: BIRGIT CARABALLO MD
--- NOTE | 2019-10-29 14:12 | Emergency Department Note ---
History of Present Illnes History of Present Illness Chief Complaint: General Medicine Complaints History of Present Illness This is a 79 year old female . 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 Any updates have been documented here. (ROMA SALAS NP) Past Medical History Recent Fever: No Clinical Suspicion of Infectio: No New/Unexplained Change in Ment: No Past Medical History: Hypertension, Diabetes, CAD, Anxiety, Other Mental Illness Other Surgery: CYST REMOVAL FROM ABD. (ROMA SALAS NP) Social History Smoking Cessation: Never Smoker Counseling Performed: No Any Illegal Drug Use: No TB Exposure/Symptoms: No (ROMA SALAS NP) Other Last Tetanus: UNKNOWN Any Pre-Existing Lines (PICC,: No Is patient up to date on immun: No (ROMA SALAS NP) Review of Systems ROS Narrative 79 y/o female presents to ED via [facility] s/p mechanical trip and fall, negative LOC by witnesses. Pt is at SNF, for TBI. Pt is at baseline mental status, easily reoriented. Noted hematoma to Forehead and nose. (ROMA SALAS NP) Review of Systems Constitutional: no symptoms EENTM: no symptoms Cardiovascular: no symptoms Respiratory: no symptoms Gastrointestinal: no symptoms Genitourinary: no symptoms Musculoskeletal: no symptoms Neurological: no symptoms Psychological: no symptoms Endocrine: no symptoms Hematological/Lymphatic: no symptoms Review of other systems All other systems reviewed and negative. PATIENT DOES HAVE A HEMATOMA NOTED TO FOREHEAD (ROMA SALAS NP) Physical Exam Related Data Allergies: Coded Allergies: No Known Allergies (Unverified , 02/09/12) Triage Vital Signs Vital Signs Date Time Temp Pulse Resp B/P (MAP) Pulse Ox O2 Delivery O2 Flow Rate FiO2 10/29/19 13:11 97.8 96 16 153/80 100 Vital signs reviewed: Yes (ROMA SALAS NP) Physical Exam CONSTITUTIONAL Constitutional: well-developed, well-nourished HENT HENT: normocephalic, atraumatic, oropharynx clear/moist, nose normal HENT L/R: left ext ear normal, right ext ear normal EYES Eyes: PERRL, conjunctivae normal NECK Neck: ROM normal PULMONARY Pulmonary: effort normal, breath sounds normal CARDIOVASCULAR Cardiovascular: regular rhythm, heart sounds normal, capillary refill normal, normal rate GASTROINTESTINAL Abdominal: soft, nontender, bowel sounds normal GENITOURINARY Genitourinary: exam deferred SKIN Skin: warm, dry, bruising (HEMATOMA NOTED TO FOREHEAD) MUSCULOSKELETAL Musculoskeletal: ROM normal NEUROLOGICAL Neurological: alert, oriented x 3, no gross motor or sensory deficits PSYCHOLOGICAL Psychological: mood/affect normal, judgement normal (ROMA SALAS NP) Results Laboratory Laboratory Laboratory Tests Test 10/29/19 13:20 Bedside Glucose 211 mg/dL (70-120) (ROMA SALAS NP) Imaging Impressions Examination: CT BRAIN WO CONTRAST History:Fall with head injury Comparison studies:None Technique: Axial images were obtained from the skull base to the vertex. Coronal and sagittal images reconstructed from the axial data. Dose modulation, iterative reconstruction, and/or weight based adjustment of the mA/kV was utilized to reduce the radiation dose to as low as reasonably achievable. Intravenous contrast: None Findings: Scalp: Small right frontal scalp hematoma. Bones: Prior left pterional craniotomy. No fractures, blastic or lytic lesions. Brain sulci: Appropriate for age. Ventricles: Normal in size and configuration. No hydrocephalus. Extra-axial space: No abnormalities. Parenchyma: Cortical-based encephalomalacia involving the bilateral gyri recti, left orbitofrontal and superior frontal gyri and anterior temporal pole. No masses, hemorrhage, or acute cortical based vascular insults.. Sellar/suprasellar region: No abnormalities. Craniocervical junction: Patent foramen magnum. No Chiari one malformation. Incidental findings: Atherosclerotic calcification of the cavernous and supraclinoid internal carotid and V4 segments of the bilateral vertebral arteries. Impression: No acute intracranial abnormalities, specifically, no hemorrhage despite small right frontal scalp hematoma. Prior left pterional craniotomy with encephalomalacia of the left frontal lobe and right gyrus rectus as detailed above. (ROMA SALAS NP) Critical Care Time Subsequent provider I assumed direction of critical care for this patient from another provider of my specialty. (ROMA SALAS NP) Assessment & Plan Reassessment Reassessment time: 14:00 Reassessment PATIENT VERY PLEASANT, ASKING FOR HER DAUGHTER. NO DISTRESS. PATIENT RESTING AND VSS. (ROMA SALAS NP) Assessment & Plan Final Impression: (1) Fall from height of less than 3 feet Assessment & Plan PATIENT AT BASELINE PER EMS CT HEAD AND CT CERVICAL SPINE ORDERED DR NINO ALSO ASSESSED PATIENT ALL RESULTS DISCUSSED WITH DR NINO OK [facility] (ROMA SALAS NP) Depart Disposition: HOME, SELF-CARE Last Vital Signs Date Time Temp Pulse Resp B/P (MAP) Pulse Ox O2 Delivery O2 Flow Rate FiO2 10/29/19 13:11 98.2 96 17 153/80 97 (ROMA SALAS NP) Physician Attestation Provider Attestation The patient's history, exam findings, diagnostics, and a summary of any interventions or procedures was reviewed in detail with our IVIS. I personally interviewed and examined the patient, and I have reviewed and agree with the HPI andexam. My personal exam shows hematoma to forehead. I confirm the diagnosis as documented by the IVIS. I have reviewed and agree with the care plan articulated in the disposition section. (ARIN NINO MD) ROMA SALAS NP October 29, 2019 13:48 ARIN NINO MD October 29, 2019 15:10
--- NOTE | 2019-10-29 14:19 | Diagnostic Imaging Report ---
Examination: CT BRAIN WO CONTRAST History:Fall with head injury Comparison studies:None Technique: Axial images were obtained from the skull base to the vertex. Coronal and sagittal images reconstructed from the axial data. Dose modulation, iterative reconstruction, and/or weight based adjustment of the mA/kV was utilized to reduce the radiation dose to as low as reasonably achievable. Intravenous contrast: None Findings: Scalp: Small right frontal scalp hematoma. Bones: Prior left pterional craniotomy. No fractures, blastic or lytic lesions. Brain sulci: Appropriate for age. Ventricles: Normal in size and configuration. No hydrocephalus. Extra-axial space: No abnormalities. Parenchyma: Cortical-based encephalomalacia involving the bilateral gyri recti, left orbitofrontal and superior frontal gyri and anterior temporal pole. No masses, hemorrhage, or acute cortical based vascular insults.. Sellar/suprasellar region: No abnormalities. Craniocervical junction: Patent foramen magnum. No Chiari one malformation. Incidental findings: Atherosclerotic calcification of the cavernous and supraclinoid internal carotid and V4 segments of the bilateral vertebral arteries. Impression: No acute intracranial abnormalities, specifically, no hemorrhage despite small right frontal scalp hematoma. Prior left pterional craniotomy with encephalomalacia of the left frontal lobe and right gyrus rectus as detailed above. Signed by: Dr. Abi Taylor M.D. on 10/29/2019 2:16 PM
--- NOTE | 2019-10-29 14:24 | NUR ---
Spoke with pts daughter Jacklyn Christine DAVEMick PH: [phone], notified daughter that patient is ok and her in ED. Awaiting further orders/disposition.
--- NOTE | 2019-10-29 14:30 | Diagnostic Imaging Report ---
Examination: CT CERVICAL SPINE WO CONTRAST HISTORY:Neck pain and injury after fall. COMPARISON:None. TECHNIQUE: Multidetector helical axial images were obtained without contrast from the foramen magnum to T1. Coronal and sagittal reformatted images were done. Bone and soft tissue windows were evaluated. Dose modulation, iterative reconstruction, and/or weight based adjustment of the mA/kV was utilized to reduce the radiation dose to as low as reasonably achievable. FINDINGS: Alignment:Normal lordosis. Grade 1 anterolisthesis of of C4 on C5 with severe left facet arthropathy and widening of the joint space. Vertebrae: Normal height and density. No acute fracture, infection or neoplasm. Disc space heights: Severely narrowed at C5-C6. Caliber of spinal canal: Developmentally normal. Posterior fossa and craniocervical junction: Foramen magnum patent. No Chiari 1 malformation. Soft tissues: Atherosclerotic calcification of the bilateral carotid bifurcations. Degenerative changes: Diffuse disc osteophyte complexes at C3-C4, C4-C5 and C5-C6 without canal stenosis. The remaining cervical levels demonstrate no disc bulge/ herniation or foraminal or canal stenosis. Visualized lung apices: No abnormalities. IMPRESSION: 1. No acute abnormalities. 2. Degenerative changes and grade 1 anterolisthesis of C4 on C5 as above. Signed by: Dr. Abi Taylor M.D. on 10/29/2019 2:27 PM
[2019-10-29 15:41] VITALS: BP 168/91
== END 2019-10-29 15:56 ==
LOC: ER 12:50
DX: S00.83XA Contusion of other part of head, initial encounter (principal); W01.0XXA Fall on same level from slipping, tripping and stumbling without subsequent striking against object, initial encounter; Y92.008 Other place in unspecified non-institutional (private) residence as the place of occurrence of the external cause; E11.65 Type 2 diabetes mellitus with hyperglycemia; I10 Essential (primary) hypertension; I25.10 Atherosclerotic heart disease of native coronary artery without angina pectoris; F41.9 Anxiety disorder, unspecified; Z79.01 Long term (current) use of anticoagulants
CPT/HCPCS: 36415; 70450; 72125; 82948; 93005; 99284